=== PATIENT | female | born 1930 | race Caucasian/White ===

== ENCOUNTER 2018-09-11 16:13 | Emergency (ER) | payer BC, OTHER ==
[2018-09-11 16:23] VITALS: TEMP 98.5; BMI 25.7
--- NOTE | 2018-09-11 16:51 | PDOC ---
History of Present Illness - General Chief Complaint: Edema Stated Complaint: FACIAL SWELLING Time Seen by Provider: 09/11/18 16:25 History Source: Patient Exam Limitations: No Limitations - History of Present Illness Initial Comments: 09/11/18 17:02 87y F hx of htn, hl, hypothyroidism, presents with complaint of facial swelling , dry mouth and a brown tongue. PT notes the dry mouth/brown tongue has been going for approx 1 month, today, her sons noticed that her cheeks looked alittle more full than usual. The patient deniesa ny othe rcomplaints including facial pain, tongue swelling, sore throat, headache, dizziness, fever/chills, vision changes, neck pain, changes in her voice, cp, sob, arm/leg swelling, orthopnea, abd pain, n/v, diaphoresis, back pain. No prior history of this inthe past. no new prescription nor otc meds. no diet changes. Past History - Past Medical History Allergies/Adverse Reactions: Allergies Allergy/AdvReac Type Severity Reaction Status Date / Time No Known Allergies Allergy Verified 09/11/18 16:15 Home Medications: Ambulatory Orders Aspirin [Baby Aspirin] PO DAILY 05/05/11 Butalb/Acetaminophen/Caffeine [Fioricet 50-325-40 mg Tablet] PO PRN 05/05/11 Diltiazem [Cardizem] 30 mg PO DAILY 05/05/11 Levothyroxine [Synthroid] 112 mcg PO ONCE 05/05/11 Metoprolol Tartrate [Lopressor] 25 mg PO DAILY 05/05/11 Pravastatin Sodium [Pravachol -] PO DAILY 05/05/11 Alprazolam [Xanax] 0.25 mg PO PRN 05/06/11 Esomeprazole Mag Trihydrate [NexIUM (NF)] 40 mg PO DAILY 05/06/11 Diazepam [Valium -] 2 mg PO DAILY PRN #7 tablet 03/07/13 Anemia: No Asthma: No Cancer: No Cardiac Disorders: No CVA: No COPD: No CHF: No Dementia: No Diabetes: No GI Disorders: No Disorders: No HTN: Yes Hypercholesterolemia: Yes Liver Disease: No Seizures: No Thyroid Disease: Yes (HYPOTHYROID) - Surgical History Abdominal Surgery: No Appendectomy: No Cardiac Surgery: No Cholecystectomy: No Lung Surgery: No Neurologic Surgery: No Orthopedic Surgery: Yes (BILAT ROTATOR CUFF REPAIR) - Suicide/Smoking/Psychosocial Hx Smoking Status: No Smoking History: Never smoked Have you smoked in the past 12 months: No Number of Cigarettes Smoked Daily: 0 Hx Alcohol Use: No Drug/Substance Use Hx: No Substance Use Type: None Hx Substance Use Treatment: No Review of Systems - Review of Systems Able to Perform ROS?: Yes Comments:: 09/11/18 17:08 Constitutional - no reported Fever, Chills, HEENT: +facial sweling, dry mouth, brown tongue no reported vision changes, sore throat Respiratory: no reported cough, sob, hemoptysis Cardiac: no reported chest pain, palpitations, light headedness, leg swelling Abd/GI: no reported abd pain, nausea, vomiting, blood per rectum, melena, diarrhea : no reported dysuria, frequency, discharge Musculskelatal - no reported back pain, joint swelling skin - no reported bruising, erythema, rash neurological: no reported headache, numbness, focal weakness, tingling, ataxia, hematologic: no reported easy bruising, easy bleeding *Physical Exam - Vital Signs Last Vital Signs Temp Pulse Resp BP Pulse Ox 98.5 F 77 18 176/69 H 95 09/11/18 16:14 09/11/18 16:14 09/11/18 16:14 09/11/18 16:14 09/11/18 16:14 - Physical Exam Comments: 09/11/18 17:10 GENERAL: The patient is awake, alert, and fully oriented, Nontoxic - in no acute distress. HEAD: Normocephalic, atraumatic. EYES: extraocular movements intact, sclera anicteric, conjunctiva clear. ENT: Normal voice, brown hairy tongue, no lympahdednopthy, no ttp to salivary glands, NECK: Normal range of motion, supple LUNGS: Breath sounds equal, clear to auscultation bilaterally. No wheezes, no rhonchi, no rales. HEART: Regular rate and rhythm, normal S1 and S2 without murmur, rub or gallop. ABDOMEN: Soft, nontender, No guarding, no rebound. No CVA tenderness EXTREMITIES: Normal range of motion, trace edema NEUROLOGICAL: No facial assymetry, Normal speech, PSYCH: Normal mood, normal affect. SKIN: Warm, Dry, normal turgor, ED Treatment Course - LABORATORY CBC & Chemistry Diagram: 09/11/18 16:56 09/11/18 16:56 Medical Decision Making - Medical Decision Making 09/11/18 17:11 posterior pharynx clear no exudates/erythema no ttp to salivary glands +black hairy tongue = likely due to dry mouth - will encourage pt to use some sucking candies to stimulate salivary flow minmial fullness of cheeks - but no palpable massess or areas of tenderness, no clinica signs of infection/inflammation will ck basic labs if neg will dc with supportive care and PMD/ENT fu 09/11/18 17:59 labs reviewed mild elevation of BUN - cw with mild dehdyration will orally hydrate enocourage sucking on sour candies will have pt fu with ent and pmd retunr precautions were discussed I discussed the physical exam findings, ancillary test results and final diagnoses with the patient. I answered all of the patient's questions. The patient was satisfied with the care received and felt comfortable with the discharge plan and treatment plan. The patient will call their primary care physician within 24 hours to arrange follow-up and will return to the Emergency Department with any new, persistent or worsening symptoms. *DC/Admit/Observation/Transfer Diagnosis at time of Disposition: Dry mouth, Black hairy tongue, Facial swelling - Discharge Dispostion Disposition: HOME Condition at time of disposition: Stable Decision to Admit order: No - Referrals Referrals: Jonathan Baker MD [Staff Physician] - Chandler Jonas MD [Staff Physician] - - Patient Instructions Additional Instructions: Return to the emergency department immediately with ANY new, persistent or worsening symptoms including dififculty braething, changes in your voice, chest pain, shortness of breath or any other concerns. I suspect that your symptoms may be due to you dry mouth, he can try sucking on hard candies to stimulate saliva. Follow-up with ear nose throat doctor if he have persistent symptoms you can call Dr. Jonas if you dont have your own ent. You MUST call and follow up with your doctor in 4-5 days for further evaluation of your symptoms. Results were discussed with you. Please make sure your doctor reviews the results of your emergency evaluation. I Print Language: BELARUSIAN - Post Discharge Activity
[2018-09-11 17:33] LABS: HEMATOCRIT 40.8 % (32.4-45.2); HEMOGLOBIN 13.4 GM/dl (10.7-15.3); MCH 30.7 pg (25.7-33.7); MCHC 32.8 g/dl (32.0-36.0); MEAN CELL VOLUME 93.6 fl (80-96); MEAN PLT VOLUME 8.1 fl (7.5-11.1); PLATELET COUNT 309 K/MM3 (134-434); RBC 4.36 M/mm3 (3.60-5.2); RDW 13.9 % (11.6-15.6); WHITE BLOOD COUNT 11.3 K/mm3 (4.0-10.8)
[2018-09-11 17:44] LABS: ALBUMIN 3.7 g/dl (3.4-5.0); BILIRUBIN,TOTAL 0.3 mg/dl (0.2-1); CALCIUM 9.4 mg/dl (8.5-10); POTASSIUM 3.8 mmol/L (3.5-5.1); TOT PROT 6.4 g/dl (6.4-8.2)
[2018-09-11 18:20] VITALS: BP 171/79; PULSE 85
== END 2018-09-11 18:45 | disposition home or self-care (01) ==
LOC: FER 16:13
DX: R68.2 Dry mouth, unspecified (principal); K14.3 Hypertrophy of tongue papillae; R22.0 Localized swelling, mass and lump, head; I10 Essential (primary) hypertension; E78.5 Hyperlipidemia, unspecified; E03.9 Hypothyroidism, unspecified
CPT/HCPCS: 36415; 80053; 85027; 99282-25

== ENCOUNTER 2018-10-01 07:04 | Day surgery (SDC) | payer BC ==
[2018-10-01] MEDS ORDERED: LIDOCAINE HCL 1%, 10 MG/ML (20ML VIAL) ONE (07:50)
[2018-10-01 08:29] VITALS: BMI 30.2
[2018-10-01] MEDS ORDERED: ACETAMINOPHEN 325 MG TABLET (FP) PO PRN (09:24)
[2018-10-01] MEDS ORDERED: ONDANSETRON 4 MG/2 ML VIAL IVPUSH PRN (09:24)
[2018-10-01] MEDS ORDERED: LACTATED RINGERS SOLUTION 1,000 ML IV SCH (09:30)
[2018-10-01] MEDS ORDERED: SUCCINYLCHOLINE CHLORIDE 200 MG/10 ML VIAL ONE (09:36)
[2018-10-01] MEDS ORDERED: PROPOFOL 20 ML ONE (09:36)
[2018-10-01] MEDS ORDERED: ceFAZolin SODIUM 1 GM VIAL ONE (09:40)
[2018-10-01] MEDS ORDERED: ceFAZolin SODIUM 1 GM VIAL IVPB ONE (09:41)
[2018-10-01] MEDS ORDERED: LIDOCAINE HCL 1%, 10 MG/ML (20ML VIAL) NR ONE (09:44)
[2018-10-01] MEDS ORDERED: LABETALOL HCL 5 MG/1 ML (100MG/20 ML VIAL) ONE (09:46)
--- NOTE | 2018-10-01 10:14 | OP ---
Operative Note - Note: Operative Date: 10/01/18 Pre-Operative Diagnosis: headaches, rule out temporal arteritis Operation: left temporal artery biopsy Post-Operative Diagnosis: Same as Pre-op Surgeon: Gumaro Peñaloza Anesthesia: Fractional Estimated Blood Loss (mls): 20 Operative Report Dictated: Yes
--- NOTE | 2018-10-01 10:15 | HP ---
Admitting History and Physical - Admission Chief Complaint: headaches, with blurry vision for 2-3 weeks Limitations to Obtaining History: No Limitations - Smoking History Smoking history: Never smoked Have you smoked in the past 12 months: No Aproximately how many cigarettes per day: 0 - Alcohol/Substance Use Hx Alcohol Use: No Home Medications - Allergies Allergies/Adverse Reactions: Allergies Allergy/AdvReac Type Severity Reaction Status Date / Time No Known Allergies Allergy Verified 10/01/18 08:23 - Home Medications Home Medications: Ambulatory Orders Butalb/Acetaminophen/Caffeine [Fioricet 50-325-40 mg Tablet] PO PRN 05/05/11 Diltiazem [Cardizem] 30 mg PO DAILY 05/05/11 Levothyroxine [Synthroid] 112 mcg PO ONCE 05/05/11 Metoprolol Tartrate [Lopressor] 25 mg PO DAILY 05/05/11 Pravastatin Sodium [Pravachol -] PO DAILY 05/05/11 Alprazolam [Xanax] 0.25 mg PO PRN 05/06/11 Esomeprazole Mag Trihydrate [NexIUM (NF)] 40 mg PO DAILY 05/06/11 Diazepam [Valium -] 2 mg PO DAILY PRN #7 tablet 03/07/13 Review of Systems - Review of Systems Constitutional: reports: No Symptoms Eyes: reports: Blurred Vision HENT: reports: No Symptoms, Other (headaches) Neck: reports: No Symptoms Cardiovascular: reports: No Symptoms Respiratory: reports: No Symptoms Gastrointestinal: reports: No Symptoms Genitourinary: reports: No Symptoms Musculoskeletal: reports: No Symptoms Integumentary: reports: No Symptoms Neurological: reports: No Symptoms Endocrine: reports: No Symptoms Hematology/Lymphatic: reports: No Symptoms Psychiatric: reports: No Symptoms Physical Examination Vital Signs: Vital Signs Temperature 98.0 F 10/01/18 07:57 Pulse Rate 88 10/01/18 07:57 Respiratory Rate 16 10/01/18 07:57 Blood Pressure 165/85 10/01/18 07:57 O2 Sat by Pulse Oximetry (%) 100 10/01/18 07:57 Constitutional: Yes: Well Nourished, No Distress, Calm Eyes: Yes: WNL, Conjunctiva Clear, EOM Intact HENT: Yes: WNL, Atraumatic, Normocephalic Neck: Yes: WNL, Supple, Trachea Midline Cardiovascular: Yes: WNL, Regular Rate and Rhythm Respiratory: Yes: WNL, Regular, CTA Bilaterally Gastrointestinal: Yes: WNL, Normal Bowel Sounds Musculoskeletal: Yes: WNL Extremities: Yes: WNL Edema: No Peripheral Pulses WNL: Yes Integumentary: Yes: WNL Neurological: Yes: WNL, Alert, Oriented ...Motor Strength: WNL Psychiatric: Yes: WNL Problem List - Problems (1) Head ache Assessment/Plan: rule out temporal arteritis for biopsy of left temporal artery today Code(s): R51 - HEADACHE
--- NOTE | 2018-10-01 10:53 | OP ---
DATE OF OPERATION: 10/01/2018 PREOPERATIVE DIAGNOSIS: Headaches, rule out temporal arteritis. POSTOPERATIVE DIAGNOSIS: Headaches, rule out temporal arteritis. PROCEDURE: Left temporal artery biopsy. SURGEON: Gumaro Underwood DO ANESTHESIA: Fractional. BLOOD LOSS: 20 mL. The patient is an 87-year-old female that has headaches and blurry vision for 2 to 3 weeks. She went to Dr. Spear's office and had blood work done. She was then sent over to our office for a temporal artery biopsy. Patient came in through ambulatory surgery. Patient was consented for the procedure understanding all risks, benefits and alternatives. Was then taken to the operating room. Once in the operating room placed on the operating table in the supine manner and the area of the left zoroastrian region was prepped and draped in a sterile surgical manner. We could feel the pulse of the left temporal artery and that was marked on the skin using a skin marker. We then went ahead and injected 10 mL of lidocaine 1% over the area. We then made a 4-cm incision using a 15 blade. Bovie electrocautery was used to control hemostasis. We were able to get down through all the fascia using Metzenbaum scissors. We then were able to dissect out our temporal artery. Temporal artery was dissected anteriorly and posteriorly. Using a Doppler we were able to hear the Doppler signal of the left temporal artery as well. We then went ahead and dissected anteriorly and posteriorly on the temporal artery. Using 4-0 silk we were able to ligate the artery and then remove it and sent it off to Pathology. Once completed Bovie electrocautery was used to control hemostasis. We irrigated the wound capaciously. Vicryl 3-0 was used and the subcutaneous tissue was approximated in an interrupted manner. Biosyn 4-0 was used and the skin was closed in a subcuticular running fashion. The area was wet and dried. Dermabond and Steri-Strips were placed. Patient tolerated this procedure with no complication. Patient transferred to PACU in stable condition. GUMARO UNDERWOOD DO RIVET CATCHER/[id number]
[2018-10-01 11:07] VITALS: BP 150/66; PULSE 93; TEMP 97.9
--- NOTE | 2018-10-01 12:49 | EKG ---
Test Reason : Blood Pressure : / mmHG Vent. Rate : 088 BPM Atrial Rate : 088 BPM P-R Int : 156 ms QRS Dur : 114 ms QT Int : 368 ms P-R-T Axes : 041 -45 074 degrees QTc Int : 445 ms SINUS RHYTHM WITH PREMATURE SUPRAVENTRICULAR COMPLEXES LEFT ANTERIOR FASCICULAR BLOCK MINIMAL VOLTAGE CRITERIA FOR LVH, MAY BE NORMAL VARIANT ABNORMAL ECG WHEN COMPARED WITH ECG OF 19-OCT-2002 08:20, PREMATURE SUPRAVENTRICULAR COMPLEXES ARE NOW PRESENT LEFT ANTERIOR FASCICULAR BLOCK IS NOW PRESENT Confirmed by SUJEY STEINER MD ([id number]) on 10/01/2018 12:49:21 PM Referred By: Gumaro Peñaloza Confirmed By:SUJEY STEINER MD
--- NOTE | 2018-10-02 18:54 | PATH ---
Surgical Pathology Report Patient Name: TONY FLORES Med. Rec. 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 MULTIPLE LEVELS EXAMINED. Electronically Signed Tamara House M.D. Gross Description Received in formalin labeled "left temporal artery biopsy," is a 0.9 cm in length x 0.1 cm diameter james portion of vasculature, consistent with a temporal artery biopsy. The specimen is trisected and entirely submitted in one cassette. /10/01/2018 saudi/10/01/2018
== END 2018-10-01 11:15 | disposition home or self-care (01) ==
LOC: JASU-SURG 07:04
PROVIDERS: ATTEND Surgery Vascular Surgery
PROC: 03BT0ZX Excision of Left Temporal Artery, Open Approach, Diagnostic (ICD-10-PCS; principal; 2018-10-01 09:00)
DX: R51 Headache (principal); H53.8 Other visual disturbances
CPT/HCPCS: 88305-TC; 93005; 93010

== ENCOUNTER 2018-11-17 09:58 | Inpatient (IN) | payer BC ==
[2018-11-17] MEDS ORDERED: ASPIRIN 81 MG CHEWABLE TABLETS PO ONE (10:21)
[2018-11-17] MEDS ORDERED: FUROSEMIDE 40 MG/4 ML INJECTABLE VIAL IVPUSH ONE (10:22)
[2018-11-17] MEDS ORDERED: dilTIAZem HCL 50 MG/10 ML - 10 ML VIAL IVPUSH ONE ×3 (10:28→12:31)
--- NOTE | 2018-11-17 10:37 | PDOC ---
History of Present Illness - General Chief Complaint: Shortness of Breath Stated Complaint: Shortness of Breath Time Seen by Provider: 11/17/18 10:18 History Source: Patient, Family (son at bedside), Old Records Exam Limitations: No Limitations - History of Present Illness Initial Comments: 11/17/18 10:39 88-year-old female with history of hypertension, hypothyroidism, high cholesterol, questionable atrial fibrillation (per report from son, but no documentation in the EMR) brought in by ambulance for shortness of breath and hypoxia. Patient was in her usual state of health, about 6 weeks ago had temporal artery biopsy for presumed temporal arteritis, at that time was started on steroids and has since been weaned off in the setting of negative pathology results. Over the last 3 weeks however patient has been having progressive symptoms of volume overload with abdominal distention, leg swelling , and over the last 2 weeks progressively increasing dyspnea on exertion with chest pressure on exertion. Symptoms significantly worsened over the last 48 hours including orthopnea and some dyspnea at rest, patient was having trouble getting out of bed so EMS was activated and found her to be hypoxic with O2 sats in the mid 70s off oxygen, improves to mid 90s on 4 L nasal cannula. Patient arrives here feeling better on oxygen, denying any chest pain or pressure, denies any fevers or chills. No history of stents or OH, making normal urine, denies any other complaints. Completed the steroid taper about 9 days ago. Past History - Past Medical History Allergies/Adverse Reactions: Allergies Allergy/AdvReac Type Severity Reaction Status Date / Time No Known Allergies Allergy Verified 10/01/18 08:23 Home Medications: Ambulatory Orders Butalb/Acetaminophen/Caffeine [Fioricet 50-325-40 mg Tablet] 40 mg PO PRN Diltiazem [Cardizem] 60 mg PO BID 05/05/11 Levothyroxine [Synthroid] 125 mcg PO DAILY 05/05/11 Metoprolol Tartrate [Lopressor] 50 mg PO BID 05/05/11 Pravastatin Sodium [Pravachol -] 20 mg PO DAILY 05/05/11 Alprazolam [Xanax] 0.25 mg PO TID 11/17/18 Ranitidine HCl [Zantac] 150 mg PO BID 11/17/18 Omeprazole 20 mg PO DAILY 11/18/18 Anemia: No Asthma: No Cancer: No Cardiac Disorders: No CVA: No COPD: No CHF: No Dementia: No Diabetes: No GI Disorders: No Disorders: No HTN: Yes Hypercholesterolemia: Yes Liver Disease: No Seizures: No Thyroid Disease: Yes (HYPOTHYROID) - Surgical History Abdominal Surgery: No Appendectomy: No Cardiac Surgery: No Cholecystectomy: No Lung Surgery: No Neurologic Surgery: No Orthopedic Surgery: Yes (BILAT ROTATOR CUFF REPAIR) - Suicide/Smoking/Psychosocial Hx Smoking Status: No Smoking History: Never smoked Have you smoked in the past 12 months: No Number of Cigarettes Smoked Daily: 0 Hx Alcohol Use: No Drug/Substance Use Hx: No Substance Use Type: None Hx Substance Use Treatment: No Review of Systems - Review of Systems Constitutional: No: Chills, Fever, Night Sweats Respiratory: Yes: Shortness of Breath, SOB with Exertion. No: Cough Cardiac (ROS): Yes: Edema, Palpitations. No: Syncope ABD/GI: No: Diarrhea, Vomiting : No: Frequency Neurological: Yes: See HPI All Other Systems: Reviewed and Negative *Physical Exam - Vital Signs Last Vital Signs Temp Pulse Resp BP Pulse Ox 97.5 F L 156 H 30 H 115/100 95 11/17/18 10:12 11/17/18 10:12 11/17/18 10:12 11/17/18 10:12 11/17/18 10:12 - Physical Exam Comments: 11/17/18 10:41 Afebrile, O2 sat 95% on 4 L nasal cannula, tachycardic to 150, blood pressure 1: 30 systolic GENERAL: Patient is alert and oriented, seated upright in stretcher, tachypnea with some respiratory distress HEAD: Normal with no signs of trauma. EYES: PERRL, EOMI, sclera anicteric, conjunctiva clear with no pallor. ENT: oropharynx clear without exudates. Moist mucous membranes. NECK: Normal range of motion, supple without masses. LUNGS: bilateral crackles to mid lung hanna, no wheezing. HEART: slightly irregular tachycardia (overall regular with premature beats), S1 and S2 with 2/6 systolic murmur RUSB. ABDOMEN: distended but soft/nontender. BS wnl. No guarding or rebound. No palpable masses. No hepatosplenomegaly. EXTREMITIES: Normal range of motion, 1+ edema. 2+ distal pulses. No cords, erythema, or tenderness. NEUROLOGICAL: Cranial nerves II through XII grossly intact. Normal speech, gait deferred. PSYCH: Normal mood, normal affect. SKIN: Warm, Dry, no rashes or lesions noted. Heart Score/ECG Review #1 ECG reviewed & interpreted by me at: 10:02 General ECG Interpretation: Sinus Rhythm (tachy at 156), Normal Intervals (LVH, QTC 518, LAFB), No acute ischemic changes (poor baseline, downsloping ST segment I/AVL with TWI, <1mm CAROL V1) Compared to previous ECG there are: No significant change (c/w 10/01: sinus, TWI AVL unchanged, lead I TWI is new. LAFB unchanged.) #2 ECG reviewed & interpreted by me at: 12:07 11/17/18 12:37 svt at 160, LAFB, persistent lateral ST depression ED Treatment Course - LABORATORY CBC & Chemistry Diagram: 11/19/18 05:40 11/19/18 05:40 - RADIOLOGY Radiology Studies Ordered: Category Date Time Status CHEST X-RAY PORTABLE* [RAD] Stat Radiology 11/17/18 10:22 Ordered Medical Decision Making - Critical Care Time Total Critical Care Time (minutes): 103 Critical Care Statement: The care of this patient involved high complexity decision making to prevent further life threatening deterioration of the patient 's condition and/or to evaluate & treat vital organ system(s) failure or risk of failure. - Medical Decision Making 11/17/18 10:52 88-year-old female with history of hypertension, high cholesterol, recent workup for temporal arteritis status post 6 week steroid course presents now with progressive volume overload over several weeks with increasing dyspnea on exertion symptoms with pulmonary edema, here with acute hypoxic CHF exacerbation , SVT. Hypoxia improved with oxygen supplementation. Placed immediately on monitor, BiPAP initiated with improved respiratory effort and oxygenation Diltiazem 5 mg IV for SVT of 150, Lasix for volume overload Labs, urinalysis EKG, chest x-ray Discuss with Dr. Baker, will fax recent office results Will need admission and cardiology consultation 11/17/18 12:12 CBC within normal limits Chem notable for creatinine of 1.5, increased from 1 just 2 months ago. Troponin slightly elevated at 0.1, BNP slightly elevated. Chest x-ray with congestive changes consistent with pulmonary edema. Patient received Cardizem 5 mg IV 2 with persistent tachycardia. D-dimer sent for possible PE, cardiology consulted. 11/17/18 12:32 Trial of adenosine for SVT v. determination of underlying rhythm. On monitor with EKG rhythm strip running, adenosine 6mg ivp given with response and apparent flutter waves. Pt did revert back to regular tachycardia at 150-160. Given presumed svt/aflutter with rvr will proceed with cardizem bolus/drip. cardiology consulted, ? amio/dig load. 11/17/18 12:42 Accepted for inpatient tele by Dr. Linares. 11/17/18 13:[address] Nazario, agrees with cardizem gtt, will be seen in ED. 11/17/18 16:[address] Campa. Digoxin 0.25 IV given at 1436, cardizem at 10mg/ h. HR still in 140s, BP improved to 120s, weaning off bipap. Discussed with team, will admit to ICU given persistent tachycardia. Cardiology to consider adding lopressor. ICU resident consulted. 11/17/18 16:[address] pulido, ICU consult resident, who will see the patient. clinically unchanged. *DC/Admit/Observation/Transfer Diagnosis at time of Disposition: Acute pulmonary edema, Acute renal insufficiency, SVT (supraventricular tachycardia) - Discharge Dispostion Condition at time of disposition: Fair Decision to Admit order: Yes - Referrals - Patient Instructions - Post Discharge Activity
[2018-11-17] MEDS ORDERED: ASPIRIN 325 MG TABLET ONE (10:41)
[2018-11-17] MEDS ORDERED: dilTIAZem HCL 50 MG/10 ML - 10 ML VIAL ONE (10:42)
[2018-11-17] MEDS ORDERED: FUROSEMIDE 40 MG/4 ML INJECTABLE VIAL ONE (10:42)
[2018-11-17 10:45] LABS: HEMATOCRIT 42.4 % (32.4-45.2); HEMOGLOBIN 14.1 GM/dL (10.7-15.3); RBC 4.55 M/mm3 (3.60-5.2); WHITE BLOOD COUNT 11.9 K/mm3 (4.0-10.0)
[2018-11-17 10:46] LABS: BASO % 1.2 % (0-2.0); EOS % 0.2 % (0-4.5); LYMPH % 30.7 % (8-40); MCH 30.9 pg (25.7-33.7); MCHC 33.2 g/dl (32.0-36.0); MEAN CELL VOLUME 93.2 fl (80-96); MEAN PLT VOLUME 8.4 fl (7.5-11.1); MONO % 6.3 % (3.8-10.2); NEUT % 61.6 % (42.8-82.8); RDW 15.1 % (11.6-15.6)
[2018-11-17 10:59] LABS: PROTHROMBIN TIME (PATIENT) 11.8 SEC (9.7-13.0)
[2018-11-17 11:01] LABS: ACTIVATED PTT 25.5 SECONDS (25.2-36.5)
[2018-11-17 11:10] LABS: PLATELET COUNT 399 K/MM3 (134-434)
[2018-11-17] MEDS ORDERED: dilTIAZem HCL 125 MG/25 ML - 25 ML VIAL ONE (11:25)
[2018-11-17 11:42] LABS: BILIRUBIN,TOTAL 0.4 mg/dL (0.2-1); BLOOD UREA NITROGEN 33.6 mg/dL (7-18); CALCIUM 9.8 mg/dL (8.5-10.1); CREATININE 1.5 mg/dL (0.55-1.3); N-TERMINAL BNP 5704.4 pg/ml (5-450); POTASSIUM 4.6 mmol/L (3.5-5.1); TOT PROT 7.2 g/dl (6.4-8.2)
[2018-11-17] MEDS ORDERED: ADENOSINE 6 MG/2 ML VIAL IVPUSH ONE ×2 (12:16→12:17)
[2018-11-17] MEDS ORDERED: DILTIAZEM INJECTION 125 MG in SODIUM CHLORIDE 100 ML IVPB SCH (12:45)
[2018-11-17] MEDS ORDERED: DIGOXIN 0.5 MG/2 ML AMPUL IVPUSH ONE (13:51)
--- NOTE | 2018-11-17 14:00 | HP ---
Admitting History and Physical - Primary Care Physician PCP: Dr Fong - Admission Chief Complaint: SOB, hypoxia x1 day History of Present Illness: Pt is an 88 yo F with PMHx of HTN, Hypothyroidism, anxiety, carpal tunnel syndrome, lumbosacral radiculopathy, osteoporosis,proteinuria, chronic renal insuff, overactive bladder,GERD, PACs/PVCs, PAD, Raynaud's, thoracic aneurysm without rupture, thyrotoxicosis s/p PETERSON, varicose veins, artherosclerotic carotid a, MR, HLD,SVT, headaches relieved with fiorecet, presenting from home for shortness of breath started about 4 weeks ago, worsened over past 2 with inability to get out of bed today. Pt had headache over 6 weeks ago, followed Dr Spear and got a temporal artery biopsy 6 weeks ago with negative pathology. Pt had been on high dose steroids for 6 weeks and started gaining weight, with orthopnea, PND, SOB about 3 weeks into the steroid use. Pt was brought in by EMS hypoxic to 70%, and in ED was sating at 90% and tachypneic and found to be tachycardic to 150s. Pt received iv dialtiazem 5mg x5, then adenosine 6mg which slowed the heart rate transiently, and showed variable aflutter. Pt at baseline with incomplete BBB with LVH and LAD. Cardiology was consulted and pt was started on diltiazim drip. Pt currently on bipap and still tachypneic. 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: Other (headache syndrome) Renal/: Yes: Renal Inusuff (GFR>60) Musculoskeletal: Yes: Chronic low back pain Endocrine: Yes: Osteopenia - Smoking History Smoking history: Never smoked Have you smoked in the past 12 months: No Aproximately how many cigarettes per day: 0 - Alcohol/Substance Use Hx Alcohol Use: No Home Medications - Allergies Allergies/Adverse Reactions: Allergies Allergy/AdvReac Type Severity Reaction Status Date / Time No Known Allergies Allergy Verified 10/01/18 08:23 - Home Medications Home Medications: Ambulatory Orders Butalb/Acetaminophen/Caffeine [Fioricet 50-325-40 mg Tablet] 40 mg PO PRN Diltiazem [Cardizem] 60 mg PO BID 05/05/11 Levothyroxine [Synthroid] 125 mcg PO ONCE 05/05/11 Metoprolol Tartrate [Lopressor] 50 mg PO BID 05/05/11 Pravastatin Sodium [Pravachol -] 20 mg PO DAILY 05/05/11 Alprazolam [Xanax] 0.25 mg PO TID 11/17/18 Ranitidine HCl [Zantac] 150 mg PO BID 11/17/18 Review of Systems - Review of Systems Cardiovascular: reports: Edema, Shortness of Breath. denies: Chest Pain Respiratory: reports: Exercise Intolerance, Orthopnea, PND, SOB on Exertion Physical Examination Vital Signs: Vital Signs Temperature 98.2 F 11/17/18 10:22 Pulse Rate 158 H 11/17/18 13:39 Respiratory Rate 26 H 11/17/18 13:39 Blood Pressure 105/91 11/17/18 13:39 O2 Sat by Pulse Oximetry (%) 100 11/17/18 13:39 Constitutional: Yes: Calm, Mild Distress (respiratory distress -tachypneic on bipap) Eyes: Yes: Conjunctiva Clear, EOM Intact, PERRL HENT: Yes: Other (ON BIPAP-32-12/5-100%) Cardiovascular: Yes: Tachycardia, Pulse Irregular, S1, S2 Respiratory: Yes: Poor Air Entry Gastrointestinal: Yes: Normal Bowel Sounds, Abdomen, Obese Extremities: Yes: Cold Edema: Yes Edema: LLE: 1+ (UP TO SHINS), RLE: 1+ Labs: CBC, BMP 11/17/18 10:26 11/17/18 10:56 Imaging - Results Chest X-ray: Report Reviewed, Image Reviewed Assessment/Plan Current Medications Digoxin (Lanoxin Injection -) 0.25 mg IVPUSH Q6H ITZ Stop: 11/18/18 10:00 Last Admin: 11/17/18 20:15 Dose: 0.25 mg Furosemide (Lasix Injection -) 40 mg IVPUSH DAILY [facility] Heparin Sodium (Porcine) (Heparin -) 1,000 unit IVPUSH PRN PRN PRN Reason: Heparin Heparin Sodium (Porcine) (Heparin -) 5,000 unit IVPUSH PRN PRN PRN Reason: Heparin Diltiazem HCl 125 mg/ Sodium (Chloride) 125 mls @ 5 mls/hr IVPB TITR ITZ; Protocol Last Titration: 11/17/18 15:30 Dose: 10 mg/hr, 10 mls/hr Heparin Sodium (Porcine) 25, (000 unit/ Sodium Chloride) 500 mls @ 20 mls/hr IV TITR ITZ; Protocol Last Admin: 11/17/18 16:00 Dose: 500 unit/hr, 10 mls/hr Levothyroxine Sodium (Synthroid -) 112 mcg PO DAILY@0700 [facility] Metoprolol Tartrate (Lopressor Injection -) 5 mg IVPUSH Q4H PRN PRN Reason: TACHYCARDIA Metoprolol Tartrate (Lopressor -) 25 mg PO TID [facility] Last Admin: 11/17/18 22:50 Dose: 25 mg Ambulatory Orders Butalb/Acetaminophen/Caffeine [Fioricet 50-325-40 mg Tablet] 40 mg PO PRN Diltiazem [Cardizem] 60 mg PO BID 05/05/11 Levothyroxine [Synthroid] 125 mcg PO ONCE 05/05/11 Metoprolol Tartrate [Lopressor] 50 mg PO BID 05/05/11 Pravastatin Sodium [Pravachol -] 20 mg PO DAILY 05/05/11 Alprazolam [Xanax] 0.25 mg PO TID 11/17/18 Ranitidine HCl [Zantac] 150 mg PO BID 11/17/18 ASSESSMENT/PLAN: Pt is an 88 yo F with PMHx of HTN, Hypothyroidism, anxiety, carpal tunnel syndrome, lumbosacral radiculopathy, osteoporosis,proteinuria, chronic renal insuff, overactive bladder,GERD, PACs/PVCs, PAD, Raynaud's, thoracic aneurysm without rupture, thyrotoxicosis s/p PETERSON, varicose veins, artherosclerotic carotid a, MR, HLD,SVT, headaches relieved with fiorecet, presenting from home for shortness of breath started about 4 weeks ago, worsened over past 2 with inability to get out of bed today. Aflutter w/RVR Flash Pulm edema HTN, Hypothyroidism, HLD, SVT elevated trops [id number]- anxiety, carpal tunnel syndrome, lumbosacral radiculopathy, osteoporosis, proteinuria, chronic renal insuff, overactive bladder, GERD, PACs/PVCs, PAD, Raynaud's, thoracic aneurysm without rupture, thyrotoxicosis s/p PETERSON, varicose veins, artherosclerotic carotid a, MR, SVT, headaches Plan Iv lasix 40mg given Bipap TSH Lipid profile Trend trops Levothyroxine Dilt iv given, drip Cards on board AC digoxin, per cardio avoid amio (since not on prior AC) ECHO Strict ins and outs Roberts Bipap Visit type - Emergency Visit Emergency Visit: Yes ED Registration Date: 11/17/18 Care time: The patient presented to the Emergency Department on the above date and was hospitalized for further evaluation of their emergent condition. - New Patient This patient is new to me today: Yes Date on this admission: 11/17/18 - Critical Care Critical Care patient: No ATTENDING PHYSICIAN STATEMENT I saw and evaluated the patient. I reviewed the resident's note and discussed the case with the resident. I agree with the resident's findings and plan as documented. SUBJECTIVE: OBJECTIVE: ASSESSMENT AND PLAN:
[2018-11-17] MEDS ORDERED: DIGOXIN 0.5 MG/2 ML AMPUL ONE ×2 (14:27→20:04)
--- NOTE | 2018-11-17 14:41 | EKG ---
Test Reason : Blood Pressure : / mmHG Vent. Rate : 156 BPM Atrial Rate : 156 BPM P-R Int : 088 ms QRS Dur : 116 ms QT Int : 322 ms P-R-T Axes : 092 -39 141 degrees QTc Int : 518 ms POOR DATA QUALITY, INTERPRETATION MAY BE ADVERSELY AFFECTED SINUS TACHYCARDIA WITH SHORT OK LEFT AXIS DEVIATION PULMONARY DISEASE PATTERN LEFT VENTRICULAR HYPERTROPHY WITH QRS WIDENING AND REPOLARIZATION ABNORMALITY ST ELEVATION CONSIDER ANTERIOR INJURY OR ACUTE INFARCT ACUTE IN / STEMI ABNORMAL ECG WHEN COMPARED WITH ECG OF 01-OCT-2018 07:41, SIGNIFICANT CHANGES HAVE OCCURRED Confirmed by Manish Porras MD ([id number]) on 11/17/2018 2:41:14 PM Referred By: Confirmed By:Manish Porras MD
[2018-11-17] MEDS ORDERED: HEPARIN NA (PORCINE) 5,000 UNITS/ML 1ML VIAL IVPUSH PRN ×2 (14:43)
--- NOTE | 2018-11-17 14:43 | CON.CARD ---
Consult Consult Specialty:: Cardiology Referred by:: Dr. Linares Reason for Consultation:: AFLUTTER, CHF - History of Present Illness Chief Complaint: SOB History of Present Illness: 88F HTN, HLD, Raynaud's disease, Anxiety, mild to moderate ascending aortic aneurysm (4.[address] 2014, stable), Hypothyroid, recent negative temporal artery bx on steroids presents to ER with several days SOB, palpitations. Found to be in CHF on CXR and in RAFlutter. Was given 40mg IV Lasix in ER, and several doses of IV Cardizem- not effective. Adenosine was given and revealed Aflutter (as per ER attending, strips not available presently for review). After Receiving Lasix, BP dropped into 80s systolic. She was placed on NIPPV. Alert and oriented in ER. Denies CP but feels SOB. No palps. Denies fever, chills, cough. + B/L LE edema over last few days. 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: Alzheimer's, CVA, Dementia, Migraine, Multiple Sclerosis, Peripheral Neuropathy, Parkinson's, Seizure, Syncope, TIA, Vertigo, Other Cardio/Vascular: Yes: HTN, Hyperlipdemia, Other (ascending aortic aneursym) Pulmonary: No: Asthma, Bronchitis, Cancer, COPD, O2 Dependent, Pneumonia, Previously Intubated, Pulmonary Embolus, Pulmonary Fibrosis, Sleep Apnea, Other Gastrointestinal: No: Ascites, Cancer, Constipation, Crohn's Disease, Diverticulitis, Diverticulosis, Esophageal Varices, Gastritis, GERD, GI Bleed, Hemorrhoids, Hiatal Hernia, Inflamatory Bowel Disease, Irritable Bowel Disease, Pancreatitis, Peptic Ulcer Disease, Ulcerative Colitis, Other Hepatobiliary: Yes: Cirrhosis Renal/: Yes: Renal Failure ...: No Infectious Disease: No: AIDS, C-Diff, Herpes Zoster, HIV, MRSA, STD's, Tuberculosis, VREF, Other Psych: No: Addictions, Anxiety, Bipolar, Depression, Panic, Psychosis, Schizophrenia, Other Musculoskeletal: No: Bursitis, Chronic low back pain, Hemiparesis, Hemiplegia, Osteoarthritis, Paraplegia, Other Rheumatology: Yes: Other (Raynauds) Endocrine: Yes: Hypothyroidism - Alcohol/Substance Use Hx Alcohol Use: No - Smoking History Smoking history: Never smoked Have you smoked in the past 12 months: No Aproximately how many cigarettes per day: 0 - Social History Usual Living Arrangement: With Child ADL: Independent History of Recent Travel: No Home Medications - Allergies Allergies/Adverse Reactions: Allergies Allergy/AdvReac Type Severity Reaction Status Date / Time No Known Allergies Allergy Verified 10/01/18 08:23 - Home Medications Home Medications: Ambulatory Orders Butalb/Acetaminophen/Caffeine [Fioricet 50-325-40 mg Tablet] PO PRN 05/05/11 Diltiazem [Cardizem] 30 mg PO DAILY 05/05/11 Levothyroxine [Synthroid] 112 mcg PO ONCE 05/05/11 Metoprolol Tartrate [Lopressor] 25 mg PO DAILY 05/05/11 Pravastatin Sodium [Pravachol -] PO DAILY 05/05/11 Alprazolam [Xanax] 0.25 mg PO PRN 05/06/11 Esomeprazole Mag Trihydrate [NexIUM (NF)] 40 mg PO DAILY 05/06/11 Diazepam [Valium -] 2 mg PO DAILY PRN #7 tablet 03/07/13 Family Disease History - Family Disease History Family History: Unremarkable (not pertinent to this presentation) Review of Systems - Review of Systems Constitutional: reports: Weakness Cardiovascular: reports: Edema, Palpitations, Shortness of Breath Respiratory: reports: SOB, SOB on Exertion Gastrointestinal: denies: No Symptoms, Abdominal Pain, Bloating, Constipation, Diarrhea, Dysphagia, Indigestion, Melena, Nausea, Rectal Bleeding, Vomiting, Vomiting Blood, Other Genitourinary: denies: No Symptoms, Burning, Discharge, Dysuria, Flank Pain, Frequency, Hematuria, Incontinence, Lesions, Menses, Pain, Testicular Mass, Testicular Pain, Testicular Swelling, Urgency, Vaginal Bleeding, Other Breasts: denies: No Symptoms Reported, See HPI, Breast Implants, Discharge from Nipple, Lumps, Pain, Skin Changes, Other Musculoskeletal: denies: No Symptoms, Back Pain, Crepitus, Decreased ROM, Extremity Pain, Joint Pain, Joint Swelling, Muscle Pain, Muscle Cramps, Muscle Weakness, Other Integumentary: denies: No Symptoms, Blister, Bruising, Change in Color, Eczema, Erythema, Incision, Lesions, Lump, Pallor, Pruritis, Rash, Wound, Other Neurological: denies: No Symptoms, Change in LOC, Change in Speech, Confusion, Dizziness, Headache, Incoordination, Numbness, Parasthesia, Pre-Existing Deficit , Seizure, Syncope, Tremors, Unsteady Gait, Weakness, Other Endocrine: denies: No Symptoms, Excessive Sweating, Flushing, Increased Hunger, Increased Thirst, Intolerance to Cold, Intolerance to Heat, Unexplained Weight Gain, Unexplained Weight Loss, Other Hematology/Lymphatic: denies: No Symptoms, Easily Bruised, Excessive Bleeding, Swollen Glands, Other Psychiatric: denies: No Symptoms, Altered Sleep Pattern, Anxiety, Depression, Hallucinations, Panic, Paranoia, Suicidal, Other - Risk Factors Known Risk Factors: Yes: Hypercholesterolemia, Hypertension Vital Signs: Vital Signs Temperature 98.2 F 11/17/18 10:22 Pulse Rate 157 H 11/17/18 14:38 Respiratory Rate 28 H 11/17/18 14:38 Blood Pressure 136/100 11/17/18 14:38 O2 Sat by Pulse Oximetry (%) 100 11/17/18 14:38 Constitutional: Yes: No Distress Eyes: Yes: Conjunctiva Clear Neck: Yes: Other (+ JVD) Respiratory: Yes: Other (bibasilar rales) Cardiovascular: Yes: Tachycardia, Pulse Irregular JVD: Yes Carotid Bruit: No PMI: Non-Displaced Heart Sounds: Yes: S1, S2 (tachy, irreg) Edema: Yes Edema: LLE: 1+, RLE: 1+ Peripheral Pulses WNL: Yes (cool w/ 1+ DPs) Neurological: Yes: Alert ...Motor Strength: WNL - Other Data Labs, Other Data: CBC, BMP 11/17/18 10:26 11/17/18 10:56 INR, PTT INR 1.00 (0.83-1.09) 11/17/18 10:26 Troponin, BNP 11/17/18 11/17/18 10:56 10:56 Troponin I 0.10 H B-Natriuretic Peptide 5704.4 H Troponin, BNP 11/17/18 11/17/18 10:56 10:56 Troponin I 0.10 H B-Natriuretic Peptide 5704.4 H Laboratory Tests 11/17/18 11/17/18 11/17/18 10:26 10:26 10:56 WBC 11.9 H Hgb 14.1 Plt Count 399 INR 1.00 PTT (Actin FS) 25.5 D-Dimer Sodium Potassium BUN Creatinine Creatine Kinase 36 Troponin I 0.10 H B-Natriuretic Peptide Albumin 11/17/18 11/17/18 10:56 12:52 WBC Hgb Plt Count INR PTT (Actin FS) D-Dimer 1155 H Sodium 142 Potassium 4.6 BUN 33.6 H Creatinine 1.5 H Creatine Kinase Troponin I B-Natriuretic Peptide 5704.4 H Albumin 3.0 L Reviewed. Echo: Pending Ejection Fraction %: LVEF > or = 40 % Imaging - Results Chest X-ray: Image Reviewed EKG: Image Reviewed Assessment/Plan IMP: 1. Atrial flutter with rapid ventricular response, unclear onset 2. Acute on chronic diastolic CHF, in setting of #1 3. History of ascending aortic aneursym, moderate 4. Hypothyroidism 5. Chronic hypertension 6. Elevated D-dimer REC: 1. Rapid atrial flutter: -Now with soft SBP in setting of rapid rates and after IV Lasix -Will begin Dig load, caution with use of Amio as not sure when onset of AFL and small risk of cardioversion (not on AC) -Not responding to Cardizem or beta ivan at this time -Start UFH gtts and plan to convert to oral NOAC in 24 hours if no bleeding issues. -Check TSH 2. CHF: likely acute on chronic diastolic secondary to SUNSHINE -Diurese as hemodymamics allow -Supplimental O2 -Telemetry -Echo -Daily weights and BMP to follow lytes and renal fxn 3. Thoracic aneurysm:previously stable -Moderate, 4.6cm. -Echo -Will plan to initiate B-Ivan once heart rate and SBP stable 4. HTN: now hypotensive in ER -Hold home meds for now 5. Hypothyroidism: -Check TSH 6. Elevated D-dimer: -Nonspecific -Will check Echo -On AC for AFL -Can check LE duplex, low clinical suspicion for PE at this time -Would not subject her to dye load while in acute CHF
[2018-11-17 14:56] LABS: ANISOCYTOSIS 0; MACROCYTOSIS 0; PLATELET ESTIMATE NORMAL
[2018-11-17] MEDS: HEPARIN - 25,000 UNIT in SODIUM CHLORIDE 495 ML IV SCH (16:00)
[2018-11-17] MEDS ORDERED: HEPARIN INFUSION - 25,000 UNITS/500 ML INFUS.BAG IVPB ONE (16:10)
--- NOTE | 2018-11-17 16:32 | ECHO ---
Version: 1 Name: TONY FLORES Exam: Adult Echocardiogram Study Date: 11/17/2018, 2:57 PM Age: 88 Years MMode/2D Measurements & Calculations IVSd: 0.85 cm LVIDs: 3.3 cm LVIDd: 4.3 cm LVPWd: 0.88 cm LVOT diam: 2.04 cm Ao root diam: 3.3 cm LA dimension: 3.5 cm Doppler Measurements & Calculations MV E max jean-pierre: 89.8 cm/sec Med E/e': 29.7 MV A max jean-pierre: 17.3 cm/sec Med Peak E' Jean-Pierre: 3.0 cm/sec MV E/A: 5.2 Lat E/e': 46.1 Lat Peak E' Jean-Pierre: 1.95 cm/sec MR max P.3 mmHg Ao max P.0 mmHg KATIUSKA(I,D): 4.0 cm Ao mean P.51 mmHg LV V1 mean: 72.2 cm/sec Ao V2 max: 86.9 cm/sec LV V1 mean P.39 mmHg AI P1/2t: 679.1 msec PI end-d jean-pierre: 191.4 cm/sec TR max jean-pierre: 285.2 cm/sec TR max P.7 mmHg Procedure The study was technically difficult with many images being suboptimal in quality. Left Ventricle The left ventricle is grossly normal size. Pardoxical septal motion. Left ventricular systolic funct ion is mildly reduced. Ejection Fraction = 45-50%. E/A reversal consistent with but not diagnostic of poor LV compliance. Right Ventricle The right ventricle is grossly normal size. The right ventricular systolic function is grossly nolberto l. Atria Normal left and right atrial size and function. Mitral Valve There is moderate mitral annular calcification. Calcified mitral apparatus. Tricuspid Valve The tricuspid valve is not well visualized, but is grossly normal. Aortic Valve There is moderate aortic valve thickening. No hemodynamically significant valvular aortic stenosis. Pulmonic Valve The pulmonic valve is not well visualized. Great Vessels The aortic root is not well visualized. Pericardium/Pleura There is no pericardial effusion. Summary Statements The study was technically difficult with many images being suboptimal in quality. The left ventricle is grossly normal size. Pardoxical septal motion. Left ventricular systolic funct ion is mildly reduced. The right ventricle is grossly normal size. The right ventricular systolic function is grossly nolberto l. Normal left and right atrial size and function. There is moderate aortic valve thickening. No hemodynamically significant valvular aortic stenosis. There is moderate mitral annular calcification. Calcified mitral apparatus. 11/17/2018, 3:31 MD Jaz Bellamy PM Ordering Physician: Jemal Campa Referring Physician: GIL HANCOCK Performed By: Marilyn Hsieh
[2018-11-17] MEDS ORDERED: METOPROLOL TARTRATE 5 MG/5 ML VIAL IVPUSH PRN (16:35)
--- NOTE | 2018-11-17 18:53 | PN ---
Teaching Attending Note Name of Resident: Anusha Pina ATTENDING PHYSICIAN STATEMENT I saw and evaluated the patient. I reviewed the resident's note and discussed the case with the resident. I agree with the resident's findings and plan as documented with exceptions below. SUBJECTIVE: 88F HTN, HLD, Raynaud's disease, Anxiety, mild to moderate ascending aortic aneurysm (4.[address] 2014, stable), Hypothyroid, recent negative temporal artery bx on steroids admitted with 1 month of progressive dyspnea, orthopnea, PND, leg swelling, worsening of symptoms of last 2 days. Also reports some palpitations. 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 OBJECTIVE: Vital Signs Period Temp Pulse Resp BP Sys/Dorsey Pulse Ox Last 24 Hr 97.5 F-98.4 F 104-161 26-30 105-139/47-100 94-100 Intake & Output 11/14/18 11/15/18 11/16/18 11/17/18 23:59 23:59 23:59 23:59 Weight 155 lb GENERAL: bipap, mild tachypnea, tachycardic, but able to speak in short sentences HEAD: Normal with no signs of trauma. EYES: Pupils equal, round and reactive to light, extraocular movements intact, sclera anicteric, conjunctiva clear. No lid lag. EARS, NOSE, THROAT: limited exam, given on bipap NECK: soft, supple, neck vein distension, limited exam given on bipap LUNGS: decreased air entry all over, unable to appreciate rales or wheezing HEART: S1S2 irregular tachycardia ABDOMEN: Soft, distended, NT, pos bowel sounds MUSCULOSKELETAL: Normal range of motion at all joints. No bony deformities or tenderness. No CVA tenderness. UPPER EXTREMITIES: 2+ pulses, warm, well-perfused. No cyanosis. No clubbing. No peripheral edema. LOWER EXTREMITIES: 2+ pedal pitting edema, pos Dp pulses, varicosities NEUROLOGICAL: AA, responds to name, further exam limited, moves all extremities freely PSYCHIATRIC: Cooperative. Good eye contact. Appropriate mood and affect. SKIN: Warm, dry, normal turgor, no rashes or lesions noted, normal capillary refill. Home Medications Medication Instructions Recorded Butalb/Acetaminophen/Caffeine PO PRN 05/05/11 [Fioricet 50-325-40 mg Tablet] Diltiazem [Cardizem] 30 mg PO DAILY 05/05/11 Levothyroxine [Synthroid] 112 mcg PO ONCE 05/05/11 Metoprolol Tartrate [Lopressor] 25 mg PO DAILY 05/05/11 Pravastatin Sodium [Pravachol -] PO DAILY 05/05/11 Alprazolam [Xanax] 0.25 mg PO PRN 05/06/11 Esomeprazole Mag Trihydrate 40 mg PO DAILY 05/06/11 [NexIUM (NF)] Diazepam [Valium -] 2 mg PO DAILY PRN #7 tablet 03/07/13 Active Medications Digoxin (Lanoxin Injection -) 0.25 mg IVPUSH Q6H [facility] Stop: 11/18/18 10:00 Furosemide (Lasix Injection -) 40 mg IVPUSH DAILY [facility] Heparin Sodium (Porcine) (Heparin -) 1,000 unit IVPUSH PRN PRN PRN Reason: Heparin Heparin Sodium (Porcine) (Heparin -) 5,000 unit IVPUSH PRN PRN PRN Reason: Heparin Diltiazem HCl 125 mg/ Sodium (Chloride) 125 mls @ 5 mls/hr IVPB TITR [facility]; Protocol Last Admin: 11/17/18 13:20 Dose: 5 mg/hr, 5 mls/hr Heparin Sodium (Porcine) 25, (000 unit/ Sodium Chloride) 500 mls @ 20 mls/hr IV TITR [facility]; Protocol Metoprolol Tartrate (Lopressor Injection -) 5 mg IVPUSH Q4H PRN PRN Reason: TACHYCARDIA Metoprolol Tartrate (Lopressor -) 25 mg PO TID [facility] Laboratory Results - last 24 hr 11/17/18 11/17/18 11/17/18 10:26 10:26 10:56 WBC 11.9 H RBC 4.55 Hgb 14.1 Hct 42.4 MCV 93.2 MCH 30.9 MCHC 33.2 RDW 15.1 Plt Count 399 MPV 8.4 Absolute Neuts (auto) 7.4 Neutrophils % 61.6 Neutrophils % (Manual) 58.4 Band Neutrophils % 0.0 Lymphocytes % 30.7 Lymphocytes % (Manual) 34.7 Monocytes % 6.3 Monocytes % (Manual) 5 Eosinophils % 0.2 Eosinophils % (Manual) 1.0 Basophils % 1.2 Basophils % (Manual) 0.0 Myelocytes % (Man) 0 Promyelocytes % (Man) 0 Blast Cells % (Manual) 0 Nucleated RBC % 0 Metamyelocytes 0 Hypochromia 0 Platelet Estimate Normal Polychromasia 0 Poikilocytosis 0 Anisocytosis 0 Microcytosis 0 Macrocytosis 0 PT with INR 11.80 INR 1.00 PTT (Actin FS) 25.5 D-Dimer Sodium Potassium Chloride Carbon Dioxide Anion Gap BUN Creatinine Est GFR (CKD-EPI)AfAm Est GFR (CKD-EPI)NonAf Random Glucose Calcium Magnesium Total Bilirubin AST ALT Alkaline Phosphatase Creatine Kinase 36 Troponin I 0.10 H B-Natriuretic Peptide Total Protein Albumin Blood Type Antibody Screen 11/17/18 11/17/18 11/17/18 10:56 10:56 10:56 WBC RBC Hgb Hct MCV MCH MCHC RDW Plt Count MPV Absolute Neuts (auto) Neutrophils % Neutrophils % (Manual) Band Neutrophils % Lymphocytes % Lymphocytes % (Manual) Monocytes % Monocytes % (Manual) Eosinophils % Eosinophils % (Manual) Basophils % Basophils % (Manual) Myelocytes % (Man) Promyelocytes % (Man) Blast Cells % (Manual) Nucleated RBC % Metamyelocytes Hypochromia Platelet Estimate Polychromasia Poikilocytosis Anisocytosis Microcytosis Macrocytosis PT with INR INR PTT (Actin FS) D-Dimer Sodium 142 Potassium 4.6 Chloride 111 H Carbon Dioxide 26 Anion Gap 5 L BUN 33.6 H Creatinine 1.5 H Est GFR (CKD-EPI)AfAm 36.18 Est GFR (CKD-EPI)NonAf 31.22 Random Glucose 127 H Calcium 9.8 Magnesium 2.3 Total Bilirubin 0.4 AST 21 ALT 27 Alkaline Phosphatase 54 Creatine Kinase Troponin I B-Natriuretic Peptide 5704.4 H Total Protein 7.2 Albumin 3.0 L Blood Type O POSITIVE Antibody Screen Negative 11/17/18 11/17/18 12:52 14:53 WBC RBC Hgb Hct MCV MCH MCHC RDW Plt Count MPV Absolute Neuts (auto) Neutrophils % Neutrophils % (Manual) Band Neutrophils % Lymphocytes % Lymphocytes % (Manual) Monocytes % Monocytes % (Manual) Eosinophils % Eosinophils % (Manual) Basophils % Basophils % (Manual) Myelocytes % (Man) Promyelocytes % (Man) Blast Cells % (Manual) Nucleated RBC % Metamyelocytes Hypochromia Platelet Estimate Polychromasia Poikilocytosis Anisocytosis Microcytosis Macrocytosis PT with INR INR PTT (Actin FS) D-Dimer 1155 H Sodium Potassium Chloride Carbon Dioxide Anion Gap BUN Creatinine Est GFR (CKD-EPI)AfAm Est GFR (CKD-EPI)NonAf Random Glucose Calcium Magnesium Total Bilirubin AST ALT Alkaline Phosphatase Creatine Kinase Troponin I B-Natriuretic Peptide Total Protein Albumin Blood Type O POSITIVE Antibody Screen EKG SVT vs 1:1 Atrial flutter post Adenosine, Atrial flutter with variable block CXR results reviewed ASSESSMENT AND PLAN: 88F HTN, HLD, Raynaud's disease, Anxiety, mild to moderate ascending aortic aneurysm (4.[address] 2014, stable), Hypothyroid, recent negative temporal artery bx on steroids, admitted with New onset CHF/tachycardia -Acute hypoxic respiratory failure -Acute systolic heart failure exacerbation, ?prednisone mediated -Atrial flutter/Fib with RVR -ELIEL , suspect cardiorenal -Elevated troponin, suspect demand type II NSTEMI from above rather than ACS. -HTN -HLD -Raynaud's disease -Anxiety -Mild to moderate Ascending aortic aneurysm (4.[address] in 2014) -Hypothyroidism -Recent negative temporal artery biopsy Plan: Bipap Cardiology input appreciated. S/p cardizem, dig loading. Continue cardizem drip. Metoprolol PO and IV prn. Heparin drip. HR with slow improvement Lasix 40 mg IV daily, strict I/os, daily weights. Cycle troponin. D- dimer noted. Patient with clinical presentation, CXR, 2D echo all strongly suggestive of CHF exacerbation. Will continue to monitor with diuresis/rate control for now. Trend renal function. levothyroxine, TSH, check lipid panel. DVTPPX heparin drip Dispo ICU consulted from ED, given improvement in HR and BP, plan to closely monitor on telemetry with low threshold for ICU transition if new concerns. Discussed with ED, cardiology, ICU Total admit time spent 65 min.
--- NOTE | 2018-11-17 19:04 | CONSULT ---
Consultation: REQUESTING PROVIDER: Dr. Langford CONSULT REQUEST: We have been asked to medically evaluate this patient for pulmonary edema HISTORY OF PRESENT ILLNESS: 88 year old female with a history of hypertension, hypothyroidism, HLD, and possible afib (hx unclear), was brought to the hospital by ambulance for shortness of breath. She reports that for several weeks, she has had progressive shortness of breath and increased swelling. She had temporal artery biopsy 6 weeks ago and has since been on a course of steroids which were weaned down and finally has been off. In the ED, patient was found to have a HR of 155 on the monitor and an EKG suggested SVT. Adenosine was given, which slowed the rate to reveal a possible A flutter picture. Diltiazem was given without success. Cardiology placed patinet on digoxin, which slowed the rate to around 120. Currently, patient is on bipap and reports that she feels less symptomatic than when she first came in, reporting no current shortness of breath, chest pain, nausea, vomiting, diarrhea, fevers, chills. Last known travel was in May (flight abroad). No recent illness, reported changes in medications, or sick contacts. No fevers or chills. REVIEW OF SYSTEMS: CONSTITUTIONAL: Absent: fever, chills, diaphoresis, generalized weakness, malaise, loss of appetite, weight change HEENT: Absent: rhinorrhea, nasal congestion, throat pain, throat swelling, difficulty swallowing, mouth swelling, ear pain, eye pain, visual changes CARDIOVASCULAR: peripheral edema Absent: chest pain, syncope, palpitations, irregular heart rate, lightheadedness , RESPIRATORY: Absent: cough, shortness of breath, dyspnea with exertion, orthopnea, wheezing, stridor, hemoptysis GASTROINTESTINAL: Absent: abdominal pain, abdominal distension, nausea, vomiting, diarrhea, constipation, melena, hematochezia GENITOURINARY: Absent: dysuria, frequency, urgency, hesitancy, hematuria, flank pain, genital pain MUSCULOSKELETAL: Absent: myalgia, arthralgia, joint swelling, back pain, neck pain SKIN: Absent: rash, itching, pallor HEMATOLOGIC/IMMUNOLOGIC: Absent: easy bleeding, easy bruising, lymphadenopathy, frequent infections ENDOCRINE: Absent: unexplained weight gain, unexplained weight loss, heat intolerance, cold intolerance NEUROLOGIC: Absent: headache, focal weakness or paresthesias, dizziness, unsteady gait, seizure, mental status changes, bladder or bowel incontinence PSYCHIATRIC: Absent: anxiety, depression, suicidal or homicidal ideation, hallucinations. PHYSICAL EXAMINATION Vital Signs - 24 hr 11/17/18 11/17/18 11/17/18 10:12 10:22 10:30 Temperature 97.5 F L 98.2 F Pulse Rate 156 H Pulse Rate [ 157 H Left Radial] Respiratory 30 H 26 H Rate Blood Pressure 115/100 Blood Pressure 139/98 [Left Arm] O2 Sat by Pulse 95 94 L 100 Oximetry (%) 11/17/18 11/17/18 11/17/18 11:00 11:08 11:22 Temperature Pulse Rate 152 H Pulse Rate [ 160 H 161 H Left Radial] Respiratory 30 H Rate Blood Pressure Blood Pressure 124/65 132/79 [Left Arm] O2 Sat by Pulse 100 94 L 100 Oximetry (%) 11/17/18 11/17/18 11/17/18 12:00 12:30 12:45 Temperature Pulse Rate Pulse Rate [ 159 H 160 H 159 H Left Radial] Respiratory 29 H 28 H Rate Blood Pressure Blood Pressure 106/47 L 114/96 119/93 [Left Arm] O2 Sat by Pulse 100 100 100 Oximetry (%) 11/17/18 11/17/18 11/17/18 13:00 13:20 13:30 Temperature Pulse Rate 160 H Pulse Rate [ 160 H 158 H Left Radial] Respiratory 26 H 26 H Rate Blood Pressure 105/65 Blood Pressure 123/70 108/76 [Left Arm] O2 Sat by Pulse 100 Oximetry (%) 11/17/18 11/17/18 11/17/18 13:39 14:38 17:25 Temperature 98.4 F Pulse Rate Pulse Rate [ 158 H 157 H 104 H Left Radial] Respiratory 26 H 28 H Rate Blood Pressure Blood Pressure 105/91 136/100 124/65 [Left Arm] O2 Sat by Pulse 100 100 100 Oximetry (%) GENERAL: A&Ox3, no acute distress EYES: PERRLA, EOMI ENT: Dry mucus membranes NECK: Mild JVD noted LUNGS: mild diffuse crackles noted, no wheezes HEART: tachycardic and irregular, no murmurs were auscultated ABDOMEN: Soft, nontender, BS present MUSCULOSKELETAL: No CVA Tenderness EXTREMITIES: 2+ pulses, 1+ peripheral edema bilaterally NEUROLOGICAL: Cranial nerves II-XII intact. No focal deficits. Laboratory Results - last 24 hr 11/17/18 11/17/18 11/17/18 10:26 10:26 10:56 WBC 11.9 H RBC 4.55 Hgb 14.1 Hct 42.4 MCV 93.2 MCH 30.9 MCHC 33.2 RDW 15.1 Plt Count 399 MPV 8.4 Absolute Neuts (auto) 7.4 Neutrophils % 61.6 Neutrophils % (Manual) 58.4 Band Neutrophils % 0.0 Lymphocytes % 30.7 Lymphocytes % (Manual) 34.7 Monocytes % 6.3 Monocytes % (Manual) 5 Eosinophils % 0.2 Eosinophils % (Manual) 1.0 Basophils % 1.2 Basophils % (Manual) 0.0 Myelocytes % (Man) 0 Promyelocytes % (Man) 0 Blast Cells % (Manual) 0 Nucleated RBC % 0 Metamyelocytes 0 Hypochromia 0 Platelet Estimate Normal Polychromasia 0 Poikilocytosis 0 Anisocytosis 0 Microcytosis 0 Macrocytosis 0 PT with INR 11.80 INR 1.00 PTT (Actin FS) 25.5 D-Dimer Sodium Potassium Chloride Carbon Dioxide Anion Gap BUN Creatinine Est GFR (CKD-EPI)AfAm Est GFR (CKD-EPI)NonAf Random Glucose Calcium Magnesium Total Bilirubin AST ALT Alkaline Phosphatase Creatine Kinase 36 Troponin I 0.10 H B-Natriuretic Peptide Total Protein Albumin Blood Type Antibody Screen 11/17/18 11/17/18 11/17/18 10:56 10:56 10:56 WBC RBC Hgb Hct MCV MCH MCHC RDW Plt Count MPV Absolute Neuts (auto) Neutrophils % Neutrophils % (Manual) Band Neutrophils % Lymphocytes % Lymphocytes % (Manual) Monocytes % Monocytes % (Manual) Eosinophils % Eosinophils % (Manual) Basophils % Basophils % (Manual) Myelocytes % (Man) Promyelocytes % (Man) Blast Cells % (Manual) Nucleated RBC % Metamyelocytes Hypochromia Platelet Estimate Polychromasia Poikilocytosis Anisocytosis Microcytosis Macrocytosis PT with INR INR PTT (Actin FS) D-Dimer Sodium 142 Potassium 4.6 Chloride 111 H Carbon Dioxide 26 Anion Gap 5 L BUN 33.6 H Creatinine 1.5 H Est GFR (CKD-EPI)AfAm 36.18 Est GFR (CKD-EPI)NonAf 31.22 Random Glucose 127 H Calcium 9.8 Magnesium 2.3 Total Bilirubin 0.4 AST 21 ALT 27 Alkaline Phosphatase 54 Creatine Kinase Troponin I B-Natriuretic Peptide 5704.4 H Total Protein 7.2 Albumin 3.0 L Blood Type O POSITIVE Antibody Screen Negative 11/17/18 11/17/18 12:52 14:53 WBC RBC Hgb Hct MCV MCH MCHC RDW Plt Count MPV Absolute Neuts (auto) Neutrophils % Neutrophils % (Manual) Band Neutrophils % Lymphocytes % Lymphocytes % (Manual) Monocytes % Monocytes % (Manual) Eosinophils % Eosinophils % (Manual) Basophils % Basophils % (Manual) Myelocytes % (Man) Promyelocytes % (Man) Blast Cells % (Manual) Nucleated RBC % Metamyelocytes Hypochromia Platelet Estimate Polychromasia Poikilocytosis Anisocytosis Microcytosis Macrocytosis PT with INR INR PTT (Actin FS) D-Dimer 1155 H Sodium Potassium Chloride Carbon Dioxide Anion Gap BUN Creatinine Est GFR (CKD-EPI)AfAm Est GFR (CKD-EPI)NonAf Random Glucose Calcium Magnesium Total Bilirubin AST ALT Alkaline Phosphatase Creatine Kinase Troponin I B-Natriuretic Peptide Total Protein Albumin Blood Type O POSITIVE Antibody Screen Active Medications Generic Name Dose Route Start Last Admin Trade Name Freq PRN Reason Stop Dose Admin Digoxin 0.25 mg 11/17/18 20:30 Lanoxin Injection - IVPUSH 11/18/18 10:00 Q6H [facility] Furosemide 40 mg 11/18/18 10:00 Lasix Injection - IVPUSH DAILY [facility] Heparin Sodium (Porcine) 1,000 unit 11/17/18 14:43 Heparin - IVPUSH PRN PRN Heparin Heparin Sodium (Porcine) 5,000 unit 11/17/18 14:43 Heparin - IVPUSH PRN PRN Heparin Diltiazem HCl 125 mg/ Sodium 125 mls @ 5 mls/hr 11/17/18 12:45 11/17/18 13:20 Chloride IVPB 5 mg/hr TITR [facility] 5 mls/hr Administration Protocol 5 MG/HR Heparin Sodium (Porcine) 25, 500 mls @ 20 mls/hr 11/17/18 14:45 11/17/18 16: 00 000 unit/ Sodium Chloride IV 500 unit/hr TITR [facility] 10 mls/hr Administration Protocol 1,000 UNIT/HR Levothyroxine Sodium 112 mcg 11/18/18 07:00 Synthroid - PO DAILY@0700 [facility] Metoprolol Tartrate 5 mg 11/17/18 16:35 Lopressor Injection - IVPUSH Q4H PRN TACHYCARDIA Metoprolol Tartrate 25 mg 11/17/18 22:00 Lopressor - PO TID [facility] CBC, BMP 11/17/18 10:26 11/17/18 10:56 ASSESSMENT/PLAN: 88 year old female with a history of hypertension, hypothyroidism, HLD, and possible afib (hx unclear), was brought to the hospital by ambulance for shortness of breath. She reports that for several weeks, she has had progressive shortness of breath and increased swelling and admitted for atrial fib/flutter and CHF exacerbation Neurological -no focal deficits, no acute complaints Cardiovascular -Afib/flutter, heart rate improved to around 109 while sleeping and jackelin to 115- 120 while awake and talking to me -continue digoxin per cardiology recommendations -monitor on telemetry -patient is hemodynamically stable -metoprolol tartrate 25mg TID -heparin ggt -CHF exacerbation/pulmonary edema - on lasix 40mg daily -troponinemia likely demand, would recommend repeating until plateaus -continue synthroid for hypothyroidism -echo shows EF 45-50% and E/A reversal suggestive of diastolic dysfunction Pulmonary -saturating well on bipap without any respiratory distress -continue on bipap -CXR shows pulmonary congestion -diuresis appears to be helping improve patient symptoms Renal -ELIEL, creatinine 1.5 which was normal on previous admission, likely pre-renal in origin, however would need to diurese -will repeat Cre in AM Dispo -continue to monitor on telemetry, call back if needed Visit type - Emergency Visit Emergency Visit: Yes ED Registration Date: 11/17/18 Care time: The patient presented to the Emergency Department on the above date and was hospitalized for further evaluation of their emergent condition. - New Patient This patient is new to me today: Yes Date on this admission: 11/17/18 - Critical Care Critical Care patient: No ATTENDING PHYSICIAN STATEMENT I saw and evaluated the patient. I reviewed the resident's note and discussed the case with the resident. I agree with the resident's findings and plan as documented. SUBJECTIVE: OBJECTIVE: ASSESSMENT AND PLAN:
[2018-11-17] MEDS: DIGOXIN 0.5 MG/2 ML AMPUL IVPUSH SCH (20:15)
[2018-11-17] MEDS ORDERED: METOPROLOL TARTRATE 25 MG TABLET (FP) ONE (22:47)
[2018-11-17] MEDS: METOPROLOL TARTRATE 25 MG TABLET (FP) PO SCH (22:50)
[2018-11-17 23:38] LABS: BLOOD UREA NITROGEN 33.8 mg/dL (7-18); CALCIUM 9.3 mg/dL (8.5-10.1); CREATININE 1.5 mg/dL (0.55-1.3); MAGNESIUM 2.1 mg/dL (1.8-2.4); POTASSIUM 4.3 mmol/L (3.5-5.1)
[2018-11-18] MEDS: DIGOXIN 0.5 MG/2 ML AMPUL IVPUSH SCH ×2 (02:30→08:07)
[2018-11-18] MEDS ORDERED: DILTIAZEM INJECTION 125 MG in SODIUM CHLORIDE 100 ML IVPB SCH (03:15)
[2018-11-18] MEDS ORDERED: DIGOXIN 0.5 MG/2 ML AMPUL ONE (03:45)
[2018-11-18] MEDS ORDERED: ADENOSINE 6 MG/2 ML VIAL IVPUSH ONE ×2 (04:18→04:49)
[2018-11-18] MEDS ORDERED: AMIODARONE IN DEXTROSE,ISO-OSM 360 MG/200 ML BAG IVPB SCH (04:45)
--- NOTE | 2018-11-18 08:18 | PN ---
Physical Exam: SUBJECTIVE: Patient seen and examined. On bipap. Gesturing about some chest discomfort that she had. Was tachy up to 180s overnight, started on digoxin, amio, cont dilt drip and heparin drip. OBJECTIVE: Vital Signs Period Temp Pulse Resp BP Sys/Dorsey Pulse Ox Last 24 Hr 97.5 F-98.4 F 72-182 22-30 96-139/47-100 92-100 Vital Signs Temp 98.4 F 11/17/18 17:25 Pulse 170 H 11/18/18 08:07 Resp 16 11/18/18 08:00 BP 117/75 11/18/18 08:00 Pulse Ox 94 L 11/18/18 08:41 Intake & Output 11/17/18 11/17/18 11/18/18 11:59 23:59 11:59 Weight 70.307 kg 73.89 kg Other: Voiding Method Indwelling Catheter Height 1.55 m Body Mass Index (BMI) 29.2 Weight Measurement Method Built in [facility] GENERAL: The patient is awake, alert, and fully oriented, on cpap EYES: PERRL, extraocular movements intact ENT: moist mucous membranes. LUNGS: Fine crackles b/l HEART: S1, S2 , ABDOMEN: Soft, nontender, nondistended, normoactive bowel sounds EXTREMITIES: 2+ pulses, warm, well-perfused, mild b/l edema. NEUROLOGICAL: Cranial nerves II through XII grossly intact. Normal speech, gait not observed. CBC, BMP 11/18/18 08:22 11/18/18 08:26 Laboratory Results - last 24 hr 11/17/18 11/17/18 11/17/18 10:26 10:26 10:56 WBC 11.9 H RBC 4.55 Hgb 14.1 Hct 42.4 MCV 93.2 MCH 30.9 MCHC 33.2 RDW 15.1 Plt Count 399 MPV 8.4 Absolute Neuts (auto) 7.4 Neutrophils % 61.6 Neutrophils % (Manual) 58.4 Band Neutrophils % 0.0 Lymphocytes % 30.7 Lymphocytes % (Manual) 34.7 Monocytes % 6.3 Monocytes % (Manual) 5 Eosinophils % 0.2 Eosinophils % (Manual) 1.0 Basophils % 1.2 Basophils % (Manual) 0.0 Myelocytes % (Man) 0 Promyelocytes % (Man) 0 Blast Cells % (Manual) 0 Nucleated RBC % 0 Metamyelocytes 0 Hypochromia 0 Platelet Estimate Normal Polychromasia 0 Poikilocytosis 0 Anisocytosis 0 Microcytosis 0 Macrocytosis 0 PT with INR 11.80 INR 1.00 PTT (Actin FS) 25.5 D-Dimer Sodium Potassium Chloride Carbon Dioxide Anion Gap BUN Creatinine Est GFR (CKD-EPI)AfAm Est GFR (CKD-EPI)NonAf Random Glucose Calcium Magnesium Total Bilirubin AST ALT Alkaline Phosphatase Creatine Kinase 36 Troponin I 0.10 H B-Natriuretic Peptide Total Protein Albumin TSH Blood Type Antibody Screen 11/17/18 11/17/18 11/17/18 10:56 10:56 10:56 WBC RBC Hgb Hct MCV MCH MCHC RDW Plt Count MPV Absolute Neuts (auto) Neutrophils % Neutrophils % (Manual) Band Neutrophils % Lymphocytes % Lymphocytes % (Manual) Monocytes % Monocytes % (Manual) Eosinophils % Eosinophils % (Manual) Basophils % Basophils % (Manual) Myelocytes % (Man) Promyelocytes % (Man) Blast Cells % (Manual) Nucleated RBC % Metamyelocytes Hypochromia Platelet Estimate Polychromasia Poikilocytosis Anisocytosis Microcytosis Macrocytosis PT with INR INR PTT (Actin FS) D-Dimer Sodium 142 Potassium 4.6 Chloride 111 H Carbon Dioxide 26 Anion Gap 5 L BUN 33.6 H Creatinine 1.5 H Est GFR (CKD-EPI)AfAm 36.18 Est GFR (CKD-EPI)NonAf 31.22 Random Glucose 127 H Calcium 9.8 Magnesium 2.3 Total Bilirubin 0.4 AST 21 ALT 27 Alkaline Phosphatase 54 Creatine Kinase Troponin I B-Natriuretic Peptide 5704.4 H Total Protein 7.2 Albumin 3.0 L TSH Blood Type O POSITIVE Antibody Screen Negative 11/17/18 11/17/18 11/17/18 12:52 14:53 23:00 WBC RBC Hgb Hct MCV MCH MCHC RDW Plt Count MPV Absolute Neuts (auto) Neutrophils % Neutrophils % (Manual) Band Neutrophils % Lymphocytes % Lymphocytes % (Manual) Monocytes % Monocytes % (Manual) Eosinophils % Eosinophils % (Manual) Basophils % Basophils % (Manual) Myelocytes % (Man) Promyelocytes % (Man) Blast Cells % (Manual) Nucleated RBC % Metamyelocytes Hypochromia Platelet Estimate Polychromasia Poikilocytosis Anisocytosis Microcytosis Macrocytosis PT with INR INR PTT (Actin FS) D-Dimer 1155 H Sodium 144 Potassium 4.3 Chloride 110 H Carbon Dioxide 24 Anion Gap 9 BUN 33.8 H Creatinine 1.5 H Est GFR (CKD-EPI)AfAm 36.18 Est GFR (CKD-EPI)NonAf 31.22 Random Glucose 108 H Calcium 9.3 Magnesium 2.1 Total Bilirubin AST ALT Alkaline Phosphatase Creatine Kinase Troponin I 0.14 H B-Natriuretic Peptide Total Protein Albumin TSH 4.97 H Blood Type O POSITIVE Antibody Screen Active Medications Generic Name Dose Route Start Last Admin Trade Name Freq PRN Reason Stop Dose Admin Digoxin 0.25 mg 11/17/18 20:30 11/18/18 08:07 Lanoxin Injection - IVPUSH 11/18/18 10:00 0.25 mg Q6H ITZ Administration Furosemide 40 mg 11/18/18 10:00 Lasix Injection - IVPUSH DAILY ITZ Heparin Sodium (Porcine) 1,000 unit 11/17/18 14:43 Heparin - IVPUSH PRN PRN Heparin Heparin Sodium (Porcine) 5,000 unit 11/17/18 14:43 Heparin - IVPUSH PRN PRN Heparin Heparin Sodium (Porcine) 25, 500 mls @ 20 mls/hr 11/17/18 14:45 11/18/18 06: 48 000 unit/ Sodium Chloride IV 1,000 unit/hr TITR ITZ 20 mls/hr Titration Protocol 1,000 UNIT/HR Diltiazem HCl 125 mg/ Sodium 125 mls @ 5 mls/hr 11/18/18 03:15 11/18/18 03:46 Chloride IVPB 5 mg/hr TITR ITZ 5 mls/hr Administration Protocol 5 MG/HR Amiodarone HCl/Dextrose 360 mg in 200 mls @ 16.667 mls/hr 11/18/18 04:45 04:47 Nexterone 360 Mg/200 Ml Bag IVPB 16.667 mls/hr ASDIR ITZ Administration Protocol 0.5 MG/MIN Levothyroxine Sodium 112 mcg 11/18/18 07:00 Synthroid - PO DAILY@0700 ITZ Metoprolol Tartrate 5 mg 11/17/18 16:35 Lopressor Injection - IVPUSH Q4H PRN TACHYCARDIA Metoprolol Tartrate 25 mg 11/17/18 22:00 11/17/18 22:50 Lopressor - PO 25 mg TID [facility] Administration Ambulatory Orders Butalb/Acetaminophen/Caffeine [Fioricet 50-325-40 mg Tablet] 40 mg PO PRN Diltiazem [Cardizem] 60 mg PO BID 05/05/11 Levothyroxine [Synthroid] 125 mcg PO ONCE 05/05/11 Metoprolol Tartrate [Lopressor] 50 mg PO BID 05/05/11 Pravastatin Sodium [Pravachol -] 20 mg PO DAILY 05/05/11 Alprazolam [Xanax] 0.25 mg PO TID 11/17/18 Ranitidine HCl [Zantac] 150 mg PO BID 11/17/18 Omeprazole 20 mg PO DAILY 11/18/18 Current Medications Furosemide (Lasix Injection -) 40 mg IVPUSH DAILY [facility] Last Admin: 11/18/18 09:27 Dose: 40 mg Heparin Sodium (Porcine) (Heparin -) 1,000 unit IVPUSH PRN PRN PRN Reason: Heparin Last Admin: 11/18/18 13:18 Dose: 1,000 unit Heparin Sodium (Porcine) (Heparin -) 5,000 unit IVPUSH PRN PRN PRN Reason: Heparin Heparin Sodium (Porcine) 25, (000 unit/ Sodium Chloride) 500 mls @ 20 mls/hr IV TITR ITZ; Protocol Last Titration: 11/18/18 09:30 Dose: 1,100 unit/hr, 22 mls/hr Diltiazem HCl 125 mg/ Sodium (Chloride) 125 mls @ 5 mls/hr IVPB TITR ITZ; Protocol Last Admin: 11/18/18 03:46 Dose: 5 mg/hr, 5 mls/hr Amiodarone HCl/Dextrose (Nexterone 360 Mg/200 Ml Bag) 360 mg in 200 mls @ 16.667 mls/hr IVPB ASDIR ITZ; Protocol Last Admin: 11/18/18 12:00 Dose: 16.667 mls/hr Levothyroxine Sodium (Synthroid -) 112 mcg PO DAILY@0700 [facility] Last Admin: 11/18/18 09:27 Dose: 112 mcg Metoprolol Tartrate (Lopressor Injection -) 5 mg IVPUSH Q4H PRN PRN Reason: TACHYCARDIA Metoprolol Tartrate (Lopressor -) 25 mg PO TID [facility] Last Admin: 11/18/18 13:08 Dose: 25 mg ASSESSMENT/PLAN: Pt is an 88 yo F with PMHx of HTN, Hypothyroidism, anxiety, carpal tunnel syndrome, lumbosacral radiculopathy, osteoporosis,proteinuria, chronic renal insuff, overactive bladder,GERD, PACs/PVCs, PAD, Raynaud's, thoracic aneurysm without rupture, thyrotoxicosis s/p PETERSON, varicose veins, artherosclerotic carotid a, MR, HLD,SVT, headaches relieved with fiorecet, presenting from home for shortness of breath started about 4 weeks ago, worsened over past 2days with inability to get out of bed day of presentation. carpal tunnel syndrome, lumbosacral radiculopathy, osteoporosis, proteinuria, chronic renal insuff, overactive bladder, GERD, PACs/PVCs, PAD, Raynaud's, thoracic aneurysm without rupture, thyrotoxicosis s/p PETERSON, varicose veins, artherosclerotic carotid a, MR, SVT, Aflutter w/RVR- Pt appears to have a hx of SVT on metoprolol and dilt at home, received adenosine, digoxin, iv dilt, amio, dit drip, per Cards- titrate off dilt drip cont amio, cont heparin drip Flash Pulm edema-cont diuresis HTN- cont metoprolol, dilt drip to be titrated per cards Hypothyroidism- Cont levothyroxine , Hx of thyrotoxicosis, s/p RAIU then levothyroxine, TSH and T4 elevated, Dr Oneil on board, thinks T4 elevated due to calibration, FT4 pending, HLD-Holding pravastatin SVT- mixed rhythms including SVT noted this admission, cont rate control, AC, and amio, pt appears to be back in sinus elevated trops- likely demand in setting of tachycardia [id number], now on heparin per ICU conversation with cards, pt may be transitioned to NOACS as outpt anxiety- xanax, last filled May 2018, for 0.5mg tid - Tachypnea- due to increased work with tachycardia, Bipap as needed headaches- last floricet prescription July 16, not picked up Negative biopsy for temporal arteritis Recent high steroid use Cont ICU mx, may be eligible for tele if stable overnight Visit type - Emergency Visit Emergency Visit: Yes ED Registration Date: 11/17/18 Care time: The patient presented to the Emergency Department on the above date and was hospitalized for further evaluation of their emergent condition. - New Patient This patient is new to me today: No - Critical Care Critical Care patient: No - Discharge Referral Referred to [facility] No ATTENDING PHYSICIAN STATEMENT I saw and evaluated the patient. I reviewed the resident's note and discussed the case with the resident. I agree with the resident's findings and plan as documented. SUBJECTIVE: OBJECTIVE: ASSESSMENT AND PLAN:
[2018-11-18 08:59] LABS: BASO % 0.9 % (0-2.0); EOS % 0.5 % (0-4.5); HEMATOCRIT 38.9 % (32.4-45.2); MCH 31.3 pg (25.7-33.7); MCHC 33.5 g/dl (32.0-36.0); MEAN CELL VOLUME 93.3 fl (80-96); MEAN PLT VOLUME 8.4 fl (7.5-11.1); NEUT % 70.6 % (42.8-82.8); PLATELET COUNT 304 K/MM3 (134-434); RBC 4.17 M/mm3 (3.60-5.2); RDW 14.8 % (11.6-15.6); WHITE BLOOD COUNT 9.6 K/mm3 (4.0-10.0)
[2018-11-18 09:27] LABS: ALBUMIN 2.7 g/dl (3.4-5.0); BILIRUBIN,TOTAL 0.6 mg/dL (0.2-1); BLOOD UREA NITROGEN 35.5 mg/dL (7-18); CALCIUM 9.2 mg/dL (8.5-10.1); CREATININE 1.6 mg/dL (0.55-1.3); MAGNESIUM 2.2 mg/dL (1.8-2.4); TOT PROT 6.4 g/dl (6.4-8.2)
[2018-11-18] MEDS: LEVOTHYROXINE NA 112 MCG TABLET (FP) PO SCH (09:27)
[2018-11-18] MEDS: FUROSEMIDE 40 MG/4 ML INJECTABLE VIAL IVPUSH SCH (09:27)
[2018-11-18] MEDS: METOPROLOL TARTRATE 25 MG TABLET (FP) PO SCH ×3 (09:27→21:07)
--- NOTE | 2018-11-18 10:27 | PN ---
Progress Note (short form) - Note Progress Note: s: no chest pain, palps, dizziness. dyspnea improving, on bipap this morning. Was transferred to ICU for atrial flutter with rate 190s, now in sinus after starting amiodarone gtt, also on dilt gtt and received digoxin load tele: sinus 70s, 6 bt NSVT Current Medications Furosemide (Lasix Injection -) 40 mg IVPUSH DAILY [facility] Last Admin: 11/18/18 09:27 Dose: 40 mg Heparin Sodium (Porcine) (Heparin -) 1,000 unit IVPUSH PRN PRN PRN Reason: Heparin Heparin Sodium (Porcine) (Heparin -) 5,000 unit IVPUSH PRN PRN PRN Reason: Heparin Heparin Sodium (Porcine) 25, (000 unit/ Sodium Chloride) 500 mls @ 20 mls/hr IV TITR ITZ; Protocol Last Titration: 11/18/18 06:48 Dose: 1,000 unit/hr, 20 mls/hr Diltiazem HCl 125 mg/ Sodium (Chloride) 125 mls @ 5 mls/hr IVPB TITR ITZ; Protocol Last Admin: 11/18/18 03:46 Dose: 5 mg/hr, 5 mls/hr Amiodarone HCl/Dextrose (Nexterone 360 Mg/200 Ml Bag) 360 mg in 200 mls @ 16.667 mls/hr IVPB ASDIR ITZ; Protocol Last Admin: 11/18/18 04:47 Dose: 16.667 mls/hr Levothyroxine Sodium (Synthroid -) 112 mcg PO DAILY@0700 [facility] Last Admin: 11/18/18 09:27 Dose: 112 mcg Metoprolol Tartrate (Lopressor Injection -) 5 mg IVPUSH Q4H PRN PRN Reason: TACHYCARDIA Metoprolol Tartrate (Lopressor -) 25 mg PO TID [facility] Last Admin: 11/18/18 09:27 Dose: 25 mg Vital Signs Period Temp Pulse Resp BP Sys/Dorsey Pulse Ox Last 24 Hr 98.3 F-98.4 F 72-182 16-90 96-136/47-100 92-100 Constitutional: Yes: No Distress Eyes: Yes: Conjunctiva Clear Neck: Yes: Other (+ JVD) Respiratory: Yes: Other (bibasilar rales) Cardiovascular: Yes: regular, nl s1, s2 JVD: Yes Carotid Bruit: No PMI: Non-Displaced Heart Sounds: Yes: S1, S2 (tachy, irreg) Edema: Yes Edema: LLE: 1+, RLE: 1+ Peripheral Pulses WNL: Yes (cool w/ 1+ DPs) Neurological: Yes: Alert ...Motor Strength: WNL Reviewed. Echo: Pending Ejection Fraction %: LVEF > or = 40 % Imaging - Results Chest X-ray: Image Reviewed EKG: Image Reviewed Assessment/Plan IMP: 1. Atrial flutter with rapid ventricular response, unclear onset 2. Acute on chronic diastolic CHF, in setting of #1 3. History of ascending aortic aneursym, moderate 4. Hypothyroidism 5. Chronic hypertension 6. Elevated D-dimer REC: 1. Rapid atrial flutter: - now in sinus - received IV digoxin load and currently on amiodarone gtt and diltiazem gtt - cont amiodarone, wean dilt gtt as tolerated - cont metoprolol -cont UFH gtt and plan to convert to oral NOAC if no bleeding issue 2. CHF: likely acute on chronic diastolic secondary to SUNSHINE - continue IV lasix -Supplemental O2 -Telemetry -Echo tds with mildly reduced LV function, grossly nl RV -Daily weights and BMP to follow lytes and renal fxn 3. Thoracic aneurysm:previously stable -Moderate, 4.6cm. - not visualized on echo, technically difficult - outpatient follow up - continue metoprolol 4. HTN: - BP improving, monitor - cont metoprolol 5. Hypothyroidism: - manage per primary 6. Elevated D-dimer: -Nonspecific -On AC for AFL -Can check LE duplex, low clinical suspicion for PE at this time -Would not subject her to dye load while in acute CHF
--- NOTE | 2018-11-18 10:28 | EKG ---
Test Reason : Blood Pressure : / mmHG Vent. Rate : 160 BPM Atrial Rate : 159 BPM P-R Int : 000 ms QRS Dur : 106 ms QT Int : 248 ms P-R-T Axes : 000 -36 146 degrees QTc Int : 404 ms SUPRAVENTRICULAR TACHYCARDIA LEFT AXIS DEVIATION LEFT VENTRICULAR HYPERTROPHY WITH REPOLARIZATION ABNORMALITY ABNORMAL ECG WHEN COMPARED WITH ECG OF 17-NOV-2018 10:02, NONSPECIFIC T WAVE ABNORMALITY NO LONGER EVIDENT IN INFERIOR LEADS Confirmed by ELLA LUCIANO, LOBO ([id number]) on 11/18/2018 10:28:11 AM Referred By: Confirmed By:LOBO JARAMILLO MD
[2018-11-18] MEDS: AMIODARONE IN DEXTROSE,ISO-OSM 360 MG/200 ML BAG IVPB SCH (12:00)
--- NOTE | 2018-11-18 12:17 | PN ---
Teaching Attending Note Name of Resident: Anusha Pina ATTENDING PHYSICIAN STATEMENT I saw and evaluated the patient. I reviewed the resident's note and discussed the case with the resident. I agree with the resident's findings and plan as documented with exceptions below. SUBJECTIVE: Patient seen and examined. on bipap, appropriately responsive, denies complaints currently. OBJECTIVE: Vital Signs Period Temp Pulse Resp BP Sys/Dorsey Pulse Ox Last 24 Hr 98.3 F-98.4 F 72-182 16-90 96-136/53-100 92-100 Intake & Output 11/15/18 11/16/18 11/17/18 11/18/18 23:59 23:59 23:59 23:59 Weight 155 lb 162 lb 14.4 oz General: on bipap, less respiratory distress Neck: soft, supple, limited exam given bipap Chest; decreased air entry all over, limited by habitus Abdomen:Soft, obese, NT Extremities: some improvement in pedal edema Home Medications Medication Instructions Recorded Butalb/Acetaminophen/Caffeine 40 mg PO PRN 05/05/11 [Fioricet 50-325-40 mg Tablet] Diltiazem [Cardizem] 60 mg PO BID 05/05/11 Levothyroxine [Synthroid] 125 mcg PO ONCE 05/05/11 Metoprolol Tartrate [Lopressor] 50 mg PO BID 05/05/11 Pravastatin Sodium [Pravachol -] 20 mg PO DAILY 05/05/11 Alprazolam [Xanax] 0.25 mg PO TID 11/17/18 Ranitidine HCl [Zantac] 150 mg PO BID 11/17/18 Omeprazole 20 mg PO DAILY 11/18/18 Active Medications Furosemide (Lasix Injection -) 40 mg IVPUSH DAILY ITZ Last Admin: 11/18/18 09:27 Dose: 40 mg Heparin Sodium (Porcine) (Heparin -) 1,000 unit IVPUSH PRN PRN PRN Reason: Heparin Heparin Sodium (Porcine) (Heparin -) 5,000 unit IVPUSH PRN PRN PRN Reason: Heparin Heparin Sodium (Porcine) 25, (000 unit/ Sodium Chloride) 500 mls @ 20 mls/hr IV TITR ITZ; Protocol Last Titration: 11/18/18 06:48 Dose: 1,000 unit/hr, 20 mls/hr Diltiazem HCl 125 mg/ Sodium (Chloride) 125 mls @ 5 mls/hr IVPB TITR IZT; Protocol Last Admin: 11/18/18 03:46 Dose: 5 mg/hr, 5 mls/hr Amiodarone HCl/Dextrose (Nexterone 360 Mg/200 Ml Bag) 360 mg in 200 mls @ 16.667 mls/hr IVPB ASDIR ITZ; Protocol Levothyroxine Sodium (Synthroid -) 112 mcg PO DAILY@0700 IT[facility] Last Admin: 11/18/18 09:27 Dose: 112 mcg Metoprolol Tartrate (Lopressor Injection -) 5 mg IVPUSH Q4H PRN PRN Reason: TACHYCARDIA Metoprolol Tartrate (Lopressor -) 25 mg PO TID ITZ Last Admin: 11/18/18 09:27 Dose: 25 mg Laboratory Results - last 24 hr 11/17/18 11/17/18 11/17/18 10:26 12:52 14:53 WBC RBC Hgb Hct MCV MCH MCHC RDW Plt Count MPV Absolute Neuts (auto) Neutrophils % Neutrophils % (Manual) 58.4 Band Neutrophils % 0.0 Lymphocytes % Lymphocytes % (Manual) 34.7 Monocytes % Monocytes % (Manual) 5 Eosinophils % Eosinophils % (Manual) 1.0 Basophils % Basophils % (Manual) 0.0 Myelocytes % (Man) 0 Promyelocytes % (Man) 0 Blast Cells % (Manual) 0 Nucleated RBC % 0 Metamyelocytes 0 Hypochromia 0 Platelet Estimate Normal Polychromasia 0 Poikilocytosis 0 Anisocytosis 0 Microcytosis 0 Macrocytosis 0 PTT (Actin FS) D-Dimer 1155 H Sodium Potassium Chloride Carbon Dioxide Anion Gap BUN Creatinine Est GFR (CKD-EPI)AfAm Est GFR (CKD-EPI)NonAf Random Glucose Calcium Phosphorus Magnesium Total Bilirubin AST ALT Alkaline Phosphatase Troponin I Total Protein Albumin Triglycerides Cholesterol Total LDL Cholesterol HDL Cholesterol TSH Free T4 Blood Type O POSITIVE 11/17/18 11/18/18 11/18/18 23:00 08:22 08:26 WBC 9.6 RBC 4.17 Hgb 13.0 Hct 38.9 MCV 93.3 MCH 31.3 MCHC 33.5 RDW 14.8 Plt Count 304 D MPV 8.4 Absolute Neuts (auto) 6.7 Neutrophils % 70.6 Neutrophils % (Manual) Band Neutrophils % Lymphocytes % 22.0 D Lymphocytes % (Manual) Monocytes % 6.0 Monocytes % (Manual) Eosinophils % 0.5 D Eosinophils % (Manual) Basophils % 0.9 Basophils % (Manual) Myelocytes % (Man) Promyelocytes % (Man) Blast Cells % (Manual) Nucleated RBC % 0 Metamyelocytes Hypochromia Platelet Estimate Polychromasia Poikilocytosis Anisocytosis Microcytosis Macrocytosis PTT (Actin FS) D-Dimer Sodium 144 144 Potassium 4.3 4.0 Chloride 110 H 110 H Carbon Dioxide 24 26 Anion Gap 9 8 BUN 33.8 H 35.5 H Creatinine 1.5 H 1.6 H Est GFR (CKD-EPI)AfAm 36.18 33.47 Est GFR (CKD-EPI)NonAf 31.22 28.88 Random Glucose 108 H 119 H Calcium 9.3 9.2 Phosphorus 4.0 Magnesium 2.1 2.2 Total Bilirubin 0.6 AST 20 ALT 22 Alkaline Phosphatase 50 Troponin I 0.14 H Total Protein 6.4 Albumin 2.7 L Triglycerides 167 H Cholesterol 161 Total LDL Cholesterol 103 H HDL Cholesterol 45 TSH 4.97 H Free T4 1.57 H Blood Type 11/18/18 08:26 WBC RBC Hgb Hct MCV MCH MCHC RDW Plt Count MPV Absolute Neuts (auto) Neutrophils % Neutrophils % (Manual) Band Neutrophils % Lymphocytes % Lymphocytes % (Manual) Monocytes % Monocytes % (Manual) Eosinophils % Eosinophils % (Manual) Basophils % Basophils % (Manual) Myelocytes % (Man) Promyelocytes % (Man) Blast Cells % (Manual) Nucleated RBC % Metamyelocytes Hypochromia Platelet Estimate Polychromasia Poikilocytosis Anisocytosis Microcytosis Macrocytosis PTT (Actin FS) 46.0 H D-Dimer Sodium Potassium Chloride Carbon Dioxide Anion Gap BUN Creatinine Est GFR (CKD-EPI)AfAm Est GFR (CKD-EPI)NonAf Random Glucose Calcium Phosphorus Magnesium Total Bilirubin AST ALT Alkaline Phosphatase Troponin I Total Protein Albumin Triglycerides Cholesterol Total LDL Cholesterol HDL Cholesterol TSH Free T4 Blood Type 2D echo results reviewed ASSESSMENT AND PLAN: 88F HTN, HLD, Raynaud's disease, Anxiety, mild to moderate ascending aortic aneurysm (4.[address] 2014, stable), Hypothyroid, recent negative temporal artery bx on steroids, admitted with New onset CHF/tachycardia -Acute hypoxic respiratory failure -Acute systolic heart failure exacerbation, ?prednisone mediated -Atrial flutter/Fib with RVR -ELIEL , suspect cardiorenal -Elevated troponin, suspect demand type II NSTEMI from above rather than ACS. -HTN -HLD -Raynaud's disease -Anxiety -Mild to moderate Ascending aortic aneurysm (4.[address] in 2014) -Hypothyroidism -Recent negative temporal artery biopsy Plan: Overnight events noted. On amiodarone/diltiazem/heparin drip. Taper diltiazem as tolerated. PO lopressor. s/p Dig loading. ?candidate for [place]/cardioverson, follow up with cardiology. 2D echo noted. Lasix 40 mg IV daily, strict I/os, daily weights. Bipap prn. Tn flat Thyroid panel noted, patient with h/o thyrotoxicosis s/p PETERSON, now on supplementation. Endocrine input given difficult to control tachycardia. Renal function unchanged. DVTPPX heparin drip Dispo pending clinical improvement. Total critical care time spent 36 min.
--- NOTE | 2018-11-18 13:12 | PN ---
Teaching Attending Note Name of Resident: Akhil Coleman ATTENDING PHYSICIAN STATEMENT I saw and evaluated the patient. I reviewed the resident's note and discussed the case with the resident. I agree with the resident's findings and plan as documented. SUBJECTIVE: Pt seen and examined in the ICU. Rates better controlled, now in sinus rhythm with bursts of NSVT. States breathing better. Taken off BiPAP, placed on nasal cannula. OBJECTIVE: Vital Signs Period Temp Pulse Resp BP Sys/Dorsey Pulse Ox Last 24 Hr 98.3 F-98.4 F 72-182 16-28 96-136/53-100 92-100 Intake & Output 11/15/18 11/16/18 11/17/18 11/18/18 23:59 23:59 23:59 23:59 Weight 70.307 kg 73.89 kg Gen: mildly tachypneic at rest Heart: irregular Lung: bibasilar rales Abd: soft, nontender Ext: no edema CBC, BMP 11/18/18 08:22 11/18/18 08:26 Active Medications Furosemide (Lasix Injection -) 40 mg IVPUSH DAILY [facility] Last Admin: 11/18/18 09:27 Dose: 40 mg Heparin Sodium (Porcine) (Heparin -) 1,000 unit IVPUSH PRN PRN PRN Reason: Heparin Heparin Sodium (Porcine) (Heparin -) 5,000 unit IVPUSH PRN PRN PRN Reason: Heparin Heparin Sodium (Porcine) 25, (000 unit/ Sodium Chloride) 500 mls @ 20 mls/hr IV TITR ITZ; Protocol Last Titration: 11/18/18 06:48 Dose: 1,000 unit/hr, 20 mls/hr Diltiazem HCl 125 mg/ Sodium (Chloride) 125 mls @ 5 mls/hr IVPB TITR ITZ; Protocol Last Admin: 11/18/18 03:46 Dose: 5 mg/hr, 5 mls/hr Amiodarone HCl/Dextrose (Nexterone 360 Mg/200 Ml Bag) 360 mg in 200 mls @ 16.667 mls/hr IVPB ASDIR ITZ; Protocol Last Admin: 11/18/18 12:00 Dose: 16.667 mls/hr Levothyroxine Sodium (Synthroid -) 112 mcg PO DAILY@0700 [facility] Last Admin: 11/18/18 09:27 Dose: 112 mcg Metoprolol Tartrate (Lopressor Injection -) 5 mg IVPUSH Q4H PRN PRN Reason: TACHYCARDIA Metoprolol Tartrate (Lopressor -) 25 mg PO TID [facility] Last Admin: 11/18/18 13:08 Dose: 25 mg ASSESSMENT AND PLAN: Atrial Fibrillation with RVR now in sinus Acute Systolic Heart Failure +Troponins likely Demand Ischemia Acute Kidney Injury HTN Hyperlipidemia Anxiety Hypothyroidism - rate/rhythm control per cardiology - continue anticoagulation - O2 to keep SpO2 >90% - trend cardiac enzymes - continue lasix - monitor urine output, creatinine - monitor CXR - can monitor on telemetry
[2018-11-18 13:52] LABS: ANISOCYTOSIS 0; MACROCYTOSIS 0; PLATELET ESTIMATE NORMAL
--- NOTE | 2018-11-18 14:37 | CONSULT ---
Consult Consult Specialty:: Endocrinology Referred by:: Dr Linares Reason for Consultation:: Abnormal TFT - History of Present Illness Chief Complaint: SOB History of Present Illness: This is an 88 yo F with PMHx of HTN, Hypothyroidism s/p PETERSON for hyperthyroidism , anxiety, carpal tunnel syndrome, lumbosacral radiculopathy, osteoporosis, proteinuria, chronic renal insuff, overactive bladder,GERD, PACs/PVCs, PAD, Raynaud's, thoracic aneurysm without rupture, varicose veins, artherosclerotic carotid a, MR, HLD,SVT, headaches relieved with fiorecet, presenting from home for shortness of breath started about 4 weeks ago, worsened over past 2 with inability to get out of bed today. Pt had headache over 6 weeks ago, followed Dr Spear and got a temporal artery biopsy 6 weeks ago with negative pathology. Pt had been on high dose steroids for 6 weeks and started gaining weight, with orthopnea, PND, SOB about 3 weeks into the steroid use. Pt was brought in by EMS hypoxic to 70%, and in ED was sating at 90% and tachypneic and found to be tachycardic to 150s. Pt received iv dialtiazem 5mg x5, then adenosine 6mg which slowed the heart rate transiently, and showed variable aflutter. Pt at baseline with incomplete BBB with LVH and LAD. Cardiology was consulted and pt was started on diltiazim drip. Pt referred for evaluation of abnormal TFT with TSH of 4.97 and FT4 of 1.57> Pt denies any wt loss, heat or cold intolerance prior to the illness. 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.: No Infectious Disease: No: AIDS, C-Diff, Herpes Zoster, HIV, MRSA, STD's, Tuberculosis, VREF, Other Psych: No: Addictions, Anxiety, Bipolar, Depression, Panic, Psychosis, Schizophrenia, Other Musculoskeletal: Yes: Chronic low back pain Rheumatology: Yes: Other (Raynauds) Endocrine: Yes: Hyperthyroidism, Hypothyroidism, Osteopenia - Alcohol/Substance Use Hx Alcohol Use: No - Smoking History Smoking history: Never smoked Have you smoked in the past 12 months: No Aproximately how many cigarettes per day: 0 - Social History Usual Living Arrangement: With Child ADL: Independent History of Recent Travel: No Home Medications - Allergies Allergies/Adverse Reactions: Allergies Allergy/AdvReac Type Severity Reaction Status Date / Time No Known Allergies Allergy Verified 10/01/18 08:23 - Home Medications Home Medications: Ambulatory Orders Butalb/Acetaminophen/Caffeine [Fioricet 50-325-40 mg Tablet] 40 mg PO PRN Diltiazem [Cardizem] 60 mg PO BID 05/05/11 Levothyroxine [Synthroid] 125 mcg PO DAILY 05/05/11 Metoprolol Tartrate [Lopressor] 50 mg PO BID 05/05/11 Pravastatin Sodium [Pravachol -] 20 mg PO DAILY 05/05/11 Alprazolam [Xanax] 0.25 mg PO TID 11/17/18 Ranitidine HCl [Zantac] 150 mg PO BID 11/17/18 Omeprazole 20 mg PO DAILY 11/18/18 Family Disease History - Family Disease History Other Family History: No family h/o thyroid disorder Review of Systems - Review of Systems Constitutional: reports: Malaise Eyes: reports: No Symptoms HENT: reports: No Symptoms Neck: reports: No Symptoms Cardiovascular: reports: Palpitations, Shortness of Breath Respiratory: reports: SOB Gastrointestinal: reports: No Symptoms Genitourinary: reports: No Symptoms Musculoskeletal: reports: No Symptoms Neurological: reports: No Symptoms Endocrine: reports: No Symptoms Physical Exam Vital Signs: Vital Signs Temperature 98.8 F 11/18/18 14:00 Pulse Rate 86 11/18/18 14:00 Respiratory Rate 16 11/18/18 12:00 Blood Pressure 125/61 11/18/18 14:00 O2 Sat by Pulse Oximetry (%) 93 L 11/18/18 11:15 Constitutional: Yes: No Distress, Calm Eyes: Yes: Conjunctiva Clear, EOM Intact HENT: Yes: Atraumatic, Normocephalic Neck: Yes: Supple, Trachea Midline Cardiovascular: Yes: Regular Rate and Rhythm Respiratory: Yes: Regular, CTA Bilaterally Gastrointestinal: Yes: Normal Bowel Sounds, Soft Extremities: Yes: Deformity, Other (Left hand deformity, 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 Will get FT4 by dialysis to confirm Continue LT4 112 for now
--- NOTE | 2018-11-18 17:10 | PN ---
Physical Exam: SUBJECTIVE: Patient seen and examined and examined at the bedside. Patient appeared comfortable and stated that she was comfortably breathing on the BiPAP and had a headache which she states is similar to her previous migraines. Heart rate and blood pressure was controlled. Denied chest pain, palpitations, shortness of breath, abd pain, n/v/c/d, weakness, numbness, tingling, lightheadedness, dizziness. OBJECTIVE: Vital Signs Period Temp Pulse Resp BP Sys/Dorsey Pulse Ox Last 24 Hr 98.3 F-98.8 F 61-182 16-26 96-131/53-75 92-100 GENERAL: The patient is awake, alert, and fully oriented, in no acute distress. HEAD: Normal with no signs of trauma. EYES: PERRL, extraocular movements intact, sclera anicteric, conjunctiva clear. No ptosis. NECK: Trachea midline, full range of motion, supple. LUNGS: Breath sounds equal, diminished with crackles at the bases. HEART: Irregular rate and rhythm, S1, S2 without murmur or rubs. ABDOMEN: Soft, nontender, nondistended, normoactive bowel sounds, no guarding, no rebound, no masses. EXTREMITIES: 1+ pulses, warm, well-perfused, no edema. NEUROLOGICAL: Cranial nerves II through XII grossly intact. Normal speech. PSYCH: Normal mood, normal affect. SKIN: Warm, dry, normal turgor, no rashes or lesions noted Laboratory Results - last 24 hr 11/17/18 11/18/18 11/18/18 23:00 08:22 08:26 WBC 9.6 RBC 4.17 Hgb 13.0 Hct 38.9 MCV 93.3 MCH 31.3 MCHC 33.5 RDW 14.8 Plt Count 304 D MPV 8.4 Absolute Neuts (auto) 6.7 Neutrophils % 70.6 Neutrophils % (Manual) 66.7 Band Neutrophils % 1.0 Lymphocytes % 22.0 D Lymphocytes % (Manual) 22.2 D Monocytes % 6.0 Monocytes % (Manual) 7 Eosinophils % 0.5 D Eosinophils % (Manual) 0.0 D Basophils % 0.9 Basophils % (Manual) 0.0 Myelocytes % (Man) 1 D Promyelocytes % (Man) 0 Blast Cells % (Manual) 0 Nucleated RBC % 0 Metamyelocytes 1 D Hypochromia 0 Platelet Estimate Normal Polychromasia 0 Poikilocytosis 0 Anisocytosis 0 Microcytosis 0 Macrocytosis 0 PTT (Actin FS) Sodium 144 144 Potassium 4.3 4.0 Chloride 110 H 110 H Carbon Dioxide 24 26 Anion Gap 9 8 BUN 33.8 H 35.5 H Creatinine 1.5 H 1.6 H Est GFR (CKD-EPI)AfAm 36.18 33.47 Est GFR (CKD-EPI)NonAf 31.22 28.88 Random Glucose 108 H 119 H Calcium 9.3 9.2 Phosphorus 4.0 Magnesium 2.1 2.2 Total Bilirubin 0.6 AST 20 ALT 22 Alkaline Phosphatase 50 Troponin I 0.14 H Total Protein 6.4 Albumin 2.7 L Triglycerides 167 H Cholesterol 161 Total LDL Cholesterol 103 H HDL Cholesterol 45 TSH 4.97 H Free T4 1.57 H 11/18/18 11/18/18 08:26 12:30 WBC RBC Hgb Hct MCV MCH MCHC RDW Plt Count MPV Absolute Neuts (auto) Neutrophils % Neutrophils % (Manual) Band Neutrophils % Lymphocytes % Lymphocytes % (Manual) Monocytes % Monocytes % (Manual) Eosinophils % Eosinophils % (Manual) Basophils % Basophils % (Manual) Myelocytes % (Man) Promyelocytes % (Man) Blast Cells % (Manual) Nucleated RBC % Metamyelocytes Hypochromia Platelet Estimate Polychromasia Poikilocytosis Anisocytosis Microcytosis Macrocytosis PTT (Actin FS) 46.0 H Sodium Potassium Chloride Carbon Dioxide Anion Gap BUN Creatinine Est GFR (CKD-EPI)AfAm Est GFR (CKD-EPI)NonAf Random Glucose Calcium Phosphorus Magnesium Total Bilirubin AST ALT Alkaline Phosphatase Troponin I 0.14 H Total Protein Albumin Triglycerides Cholesterol Total LDL Cholesterol HDL Cholesterol TSH Free T4 CBC, BMP 11/18/18 08:22 11/18/18 08:26 INR, PTT INR 1.00 (0.83-1.09) 11/17/18 10:26 Active Medications Generic Name Dose Route Start Last Admin Trade Name Freq PRN Reason Stop Dose Admin Furosemide 40 mg 11/18/18 10:00 11/18/18 09:27 Lasix Injection - IVPUSH 40 mg DAILY ITZ Administration Heparin Sodium (Porcine) 1,000 unit 11/17/18 14:43 11/18/18 13:18 Heparin - IVPUSH 1,000 unit PRN PRN Administration Heparin Heparin Sodium (Porcine) 5,000 unit 11/17/18 14:43 Heparin - IVPUSH PRN PRN Heparin Heparin Sodium (Porcine) 25, 500 mls @ 20 mls/hr 11/17/18 14:45 11/18/18 09: 30 000 unit/ Sodium Chloride IV 1,100 unit/hr TITR ITZ 22 mls/hr Titration Protocol 1,000 UNIT/HR Diltiazem HCl 125 mg/ Sodium 125 mls @ 5 mls/hr 11/18/18 03:15 11/18/18 03:46 Chloride IVPB 5 mg/hr TITR ITZ 5 mls/hr Administration Protocol 5 MG/HR Amiodarone HCl/Dextrose 360 mg in 200 mls @ 16.667 mls/hr 11/18/18 12:00 12:00 Nexterone 360 Mg/200 Ml Bag IVPB 16.667 mls/hr ASDIR ITZ Administration Protocol 0.5 MG/MIN Levothyroxine Sodium 112 mcg 11/18/18 07:00 11/18/18 09:27 Synthroid - PO 112 mcg DAILY@0700 ITZ Administration Metoprolol Tartrate 5 mg 11/17/18 16:35 Lopressor Injection - IVPUSH Q4H PRN TACHYCARDIA Metoprolol Tartrate 25 mg 11/17/18 22:00 11/18/18 13:08 Lopressor - PO 25 mg TID ITZ Administration ASSESSMENT/PLAN: Leti Blanchard is a 88 year old female with a PMHx of HTN, Hypothyroidism, anxiety, carpal tunnel syndrome, lumbosacral radiculopathy, osteoporosis, proteinuria, chronic renal insuff, overactive bladder,GERD, PACs/PVCs, PAD, Raynaud's, thoracic aneurysm without rupture, thyrotoxicosis s/p PETERSON, varicose veins, artherosclerotic carotid artery who was admitted to the ICU after consistently having HR in the 180s 2/2 SVTs. Atrial Fibrillation with RVR Acute Systolic Heart Failure Troponemia ELIEL HTN HLD Anxiety Hypothyroidism NEUROLOGIC - stable CARDIOLOGY - adenosine, diltiazem, digoxin given in ED - currently in sinus rhythm with occasional premature supraventricular beats - echo showing EF 45-50% - troponins peaked at 0.14, likely demand ischemia - patient remained in the 180s to 190s - started on diltiazem and amiodarone drip - diltiazem drip discontinued - continue amiodarone 0.5 mg/min - cardiology consulted recs appreciated - on heparin drip, when stable transition to oral NOAC - continue Lopressor 25mg tid - lopressor 5mg q4h prn - Lasix 40mg IV push daily for acute CHF - I+Os, daily weights, monitor urine output - LDL 103, HDL 45 RESPIRATORY - on NC now - BiPAP as needed RENAL - ELIEL likely in the setting of CHF - lasix 40mg IV daily GASTROINTESTINAL - no acute issues GENITOURINARY - barrett in - hematuria noted - UA ordered - continue to monitor, CBC in morning to trend for bleeding - if continued bleeding and lower H/H, consider stopping heparin INFECTIOUS DISEASE - no acute issues ENDOCRINE - synthroid 112mcg daily HEMATOLOGY - stable - continue to monitor counts MUSCULOSKELETAL - no acute issues PSYCHIATRY - no acute issues F/E/N - no standing fluids - continue to monitor electrolytes and replete as needed - low sodium diet LINES - L forearm inserted 11/17 PROPHYLAXIS - on heparin drip CODE - full code DISPO - continue to monitor in ICU CASE DISCUSSED WITH DR. BERMEO AND PRIMARY TEAM KIAH REDDY DO - PGY-1 INTERNAL MEDICINE Visit type - Emergency Visit Emergency Visit: No - New Patient This patient is new to me today: Yes Date on this admission: 11/18/18 - Critical Care Critical Care patient: Yes Total Critical Care Time (in minutes): 35 Critical Care Statement: The care of this patient involved high complexity decision making to prevent further life threatening deterioration of the patient 's condition and/or to evaluate & treat vital organ system(s) failure or risk of failure.
[2018-11-18] MEDS: HEPARIN - 25,000 UNIT in SODIUM CHLORIDE 495 ML IV SCH (21:07)
[2018-11-18 21:25] LABS: EPI CELLS 0.7 /HPF (0-5/HPF); HYALINE CASTS 4 /lpf (0-8); URINE APPEARANCE CLEAR; URINE BACTERIA 22.7 /hpf (NEGATIVE); URINE BILIRUBIN NEGATIVE (NEGATIVE); URINE COLOR ORANGE; URINE GLUCOSE (UA) NEGATIVE (NEGATIVE); URINE KETONE NEGATIVE (NEGATIVE); URINE LEUK ESTERASE TRACE (NEGATIVE); URINE NITRITE NEGATIVE (NEGATIVE); URINE PROTEIN 1+ (NEGATIVE); URINE RBC 557 /hpf (0-4); URINE UROBILINOGEN 0.2 mg/dL (0.2-1.0); URINE WBC 6 /hpf (0-5)
[2018-11-19] MEDS: LEVOTHYROXINE NA 112 MCG TABLET (FP) PO SCH (06:09)
[2018-11-19] MEDS: METOPROLOL TARTRATE 25 MG TABLET (FP) PO SCH ×3 (06:09→21:48)
[2018-11-19 06:30] LABS: HEMATOCRIT 37.2 % (32.4-45.2); HEMOGLOBIN 12.7 GM/dL (10.7-15.3); MCH 31.4 pg (25.7-33.7); MCHC 34.2 g/dl (32.0-36.0); MEAN CELL VOLUME 91.8 fl (80-96); MEAN PLT VOLUME 8.3 fl (7.5-11.1); PLATELET COUNT 267 K/MM3 (134-434); RBC 4.05 M/mm3 (3.60-5.2); RDW 14.7 % (11.6-15.6); WHITE BLOOD COUNT 8.6 K/mm3 (4.0-10.0)
[2018-11-19 06:58] LABS: ALBUMIN 2.4 g/dl (3.4-5.0); BILIRUBIN,TOTAL 0.4 mg/dL (0.2-1); BLOOD UREA NITROGEN 33.8 mg/dL (7-18); CALCIUM 8.3 mg/dL (8.5-10.1); CREATININE 1.5 mg/dL (0.55-1.3); MAGNESIUM 1.8 mg/dL (1.8-2.4); POTASSIUM 3.4 mmol/L (3.5-5.1); TOT PROT 5.9 g/dl (6.4-8.2)
[2018-11-19] MEDS ORDERED: PNEUMOC 13-VAL CONJ-DIP CRM/PF 0.5 ML DISP.SYRIN IM ONE (10:00)
[2018-11-19] MEDS: FUROSEMIDE 40 MG/4 ML INJECTABLE VIAL IVPUSH SCH (10:06)
--- NOTE | 2018-11-19 10:39 | PN ---
Physical Exam: SUBJECTIVE: Patient seen and examined. Heart rate has been controlled on amio drip, tele shows sinus rhythm. Pt off Bipap, no chest pain. OBJECTIVE: Vital Signs Period Temp Pulse Resp BP Sys/Dorsey Pulse Ox Last 24 Hr 97.7 F-98.8 F 61-92 16-25 101-131/61-100 93-99 Vital Signs Temp 98.7 F 11/19/18 10:00 Pulse 82 11/19/18 12:00 Resp 21 H 11/19/18 12:00 BP 120/67 11/19/18 12:00 Pulse Ox 99 11/19/18 09:00 Intake & Output 11/18/18 11/19/18 11/19/18 23:59 11:59 23:59 Intake Total 390 Output Total 450 Balance -60 Weight 72.575 kg Intake: IV 390 Heparin - 25,000 Unit In 192 Normal Saline - 495 ml @ 1,000 UNIT/HR 20 mls/hr IV TITR ITZ Rx#: [id number] saline lock 198 Output: Urine 450 Roberts 450 Other: Voiding Method Indwelling Catheter Indwelling Catheter Weight Measurement Method Built in [facility] GENERAL: The patient is awake, alert, and fully oriented, in no acute distress, on NC. LUNGS: reduced breath sounds with rales lung base. HEART: irreg, S1, S2 ABDOMEN: Soft, nontender, nondistended, normoactive bowel sounds EXTREMITIES: 2+ pulses, warm, well-perfused,mild edema. NEUROLOGICAL: Cranial nerves II through XII grossly intact. No facial droop, no lateralizing signs, able to move all extremities. Normal speech, gait not observed. CBC, BMP 11/19/18 05:40 11/19/18 05:40 Laboratory Results - last 24 hr 11/18/18 11/18/18 11/18/18 08:22 10:23 12:30 WBC RBC Hgb Hct MCV MCH MCHC RDW Plt Count MPV Neutrophils % (Manual) 66.7 Band Neutrophils % 1.0 Lymphocytes % (Manual) 22.2 D Monocytes % (Manual) 7 Eosinophils % (Manual) 0.0 D Basophils % (Manual) 0.0 Myelocytes % (Man) 1 D Promyelocytes % (Man) 0 Blast Cells % (Manual) 0 Nucleated RBC % 0 Metamyelocytes 1 D Hypochromia 0 Platelet Estimate Normal Polychromasia 0 Poikilocytosis 0 Anisocytosis 0 Microcytosis 0 Macrocytosis 0 PTT (Actin FS) Sodium Potassium Chloride Carbon Dioxide Anion Gap BUN Creatinine Est GFR (CKD-EPI)AfAm Est GFR (CKD-EPI)NonAf Random Glucose Calcium Phosphorus Magnesium Total Bilirubin AST ALT Alkaline Phosphatase Troponin I 0.14 H Total Protein Albumin Total T3 64.00 L Urine Color Urine Appearance Urine pH Ur Specific [place] Urine Protein Urine Glucose (UA) Urine Ketones Urine Blood Urine Nitrite Urine Bilirubin Urine Urobilinogen Ur Leukocyte Esterase Urine WBC (Auto) Urine RBC (Auto) Urine Casts (Auto) U Epithel Cells (Auto) Urine Bacteria (Auto) 11/18/18 11/18/18 11/19/18 15:45 17:00 02:25 WBC RBC Hgb Hct MCV MCH MCHC RDW Plt Count MPV Neutrophils % (Manual) Band Neutrophils % Lymphocytes % (Manual) Monocytes % (Manual) Eosinophils % (Manual) Basophils % (Manual) Myelocytes % (Man) Promyelocytes % (Man) Blast Cells % (Manual) Nucleated RBC % Metamyelocytes Hypochromia Platelet Estimate Polychromasia Poikilocytosis Anisocytosis Microcytosis Macrocytosis PTT (Actin FS) 170.6 H 60.4 H Sodium Potassium Chloride Carbon Dioxide Anion Gap BUN Creatinine Est GFR (CKD-EPI)AfAm Est GFR (CKD-EPI)NonAf Random Glucose Calcium Phosphorus Magnesium Total Bilirubin AST ALT Alkaline Phosphatase Troponin I Total Protein Albumin Total T3 Urine Color [place] Urine Appearance Clear Urine pH 5.0 Ur Specific [place] 1.010 Urine Protein 1+ H Urine Glucose (UA) Negative Urine Ketones Negative Urine Blood 3+ H Urine Nitrite Negative Urine Bilirubin Negative Urine Urobilinogen 0.2 Ur Leukocyte Esterase Trace Urine WBC (Auto) 6 Urine RBC (Auto) 557 Urine Casts (Auto) 4 U Epithel Cells (Auto) 0.7 Urine Bacteria (Auto) 22.7 11/19/18 11/19/18 11/19/18 05:40 05:40 05:40 WBC 8.6 RBC 4.05 Hgb 12.7 Hct 37.2 MCV 91.8 MCH 31.4 MCHC 34.2 RDW 14.7 Plt Count 267 MPV 8.3 Neutrophils % (Manual) Band Neutrophils % Lymphocytes % (Manual) Monocytes % (Manual) Eosinophils % (Manual) Basophils % (Manual) Myelocytes % (Man) Promyelocytes % (Man) Blast Cells % (Manual) Nucleated RBC % Metamyelocytes Hypochromia Platelet Estimate Polychromasia Poikilocytosis Anisocytosis Microcytosis Macrocytosis PTT (Actin FS) 65.7 H Sodium 144 Potassium 3.4 L Chloride 108 H Carbon Dioxide 26 Anion Gap 9 BUN 33.8 H Creatinine 1.5 H Est GFR (CKD-EPI)AfAm 36.18 Est GFR (CKD-EPI)NonAf 31.22 Random Glucose 97 Calcium 8.3 L Phosphorus 4.0 Magnesium 1.8 Total Bilirubin 0.4 AST 18 ALT 18 Alkaline Phosphatase 48 Troponin I Total Protein 5.9 L Albumin 2.4 L Total T3 Urine Color Urine Appearance Urine pH Ur Specific [place] Urine Protein Urine Glucose (UA) Urine Ketones Urine Blood Urine Nitrite Urine Bilirubin Urine Urobilinogen Ur Leukocyte Esterase Urine WBC (Auto) Urine RBC (Auto) Urine Casts (Auto) U Epithel Cells (Auto) Urine Bacteria (Auto) 11/19/18 05:40 WBC RBC Hgb Hct MCV MCH MCHC RDW Plt Count MPV Neutrophils % (Manual) Band Neutrophils % Lymphocytes % (Manual) Monocytes % (Manual) Eosinophils % (Manual) Basophils % (Manual) Myelocytes % (Man) Promyelocytes % (Man) Blast Cells % (Manual) Nucleated RBC % Metamyelocytes Hypochromia Platelet Estimate Polychromasia Poikilocytosis Anisocytosis Microcytosis Macrocytosis PTT (Actin FS) Sodium Potassium Chloride Carbon Dioxide Anion Gap BUN Creatinine Est GFR (CKD-EPI)AfAm Est GFR (CKD-EPI)NonAf Random Glucose Calcium Phosphorus Magnesium Total Bilirubin AST ALT Alkaline Phosphatase Troponin I 0.08 H Total Protein Albumin Total T3 Urine Color Urine Appearance Urine pH Ur Specific [place] Urine Protein Urine Glucose (UA) Urine Ketones Urine Blood Urine Nitrite Urine Bilirubin Urine Urobilinogen Ur Leukocyte Esterase Urine WBC (Auto) Urine RBC (Auto) Urine Casts (Auto) U Epithel Cells (Auto) Urine Bacteria (Auto) Active Medications Generic Name Dose Route Start Last Admin Trade Name Freq PRN Reason Stop Dose Admin Furosemide 40 mg 11/18/18 10:00 11/19/18 10:06 Lasix Injection - IVPUSH 40 mg DAILY ITZ Administration Heparin Sodium (Porcine) 1,000 unit 11/17/18 14:43 11/18/18 13:18 Heparin - IVPUSH 1,000 unit PRN PRN Administration Heparin Heparin Sodium (Porcine) 5,000 unit 11/17/18 14:43 Heparin - IVPUSH PRN PRN Heparin Heparin Sodium (Porcine) 25, 500 mls @ 20 mls/hr 11/17/18 14:45 11/18/18 21: 07 000 unit/ Sodium Chloride IV 800 unit/hr TITR ITZ 16 mls/hr Administration Protocol 1,000 UNIT/HR Amiodarone HCl/Dextrose 360 mg in 200 mls @ 16.667 mls/hr 11/18/18 12:00 12:00 Nexterone 360 Mg/200 Ml Bag IVPB 16.667 mls/hr ASDIR ITZ Administration Protocol 0.5 MG/MIN Levothyroxine Sodium 112 mcg 11/18/18 07:00 11/19/18 06:09 Synthroid - PO 112 mcg DAILY@0700 [facility] Administration Metoprolol Tartrate 5 mg 11/17/18 16:35 Lopressor Injection - IVPUSH Q4H PRN TACHYCARDIA Metoprolol Tartrate 25 mg 11/17/18 22:00 11/19/18 06:09 Lopressor - PO 25 mg TID [facility] Administration Ambulatory Orders Butalb/Acetaminophen/Caffeine [Fioricet 50-325-40 mg Tablet] 40 mg PO PRN Diltiazem [Cardizem] 60 mg PO BID 05/05/11 Levothyroxine [Synthroid] 125 mcg PO DAILY 05/05/11 Metoprolol Tartrate [Lopressor] 50 mg PO BID 05/05/11 Pravastatin Sodium [Pravachol -] 20 mg PO DAILY 05/05/11 Alprazolam [Xanax] 0.25 mg PO TID 11/17/18 Ranitidine HCl [Zantac] 150 mg PO BID 11/17/18 Omeprazole 20 mg PO DAILY 11/18/18 Current Medications Furosemide (Lasix Injection -) 40 mg IVPUSH DAILY [facility] Last Admin: 11/19/18 10:06 Dose: 40 mg Heparin Sodium (Porcine) (Heparin -) 1,000 unit IVPUSH PRN PRN PRN Reason: Heparin Last Admin: 11/18/18 13:18 Dose: 1,000 unit Heparin Sodium (Porcine) (Heparin -) 5,000 unit IVPUSH PRN PRN PRN Reason: Heparin Heparin Sodium (Porcine) 25, (000 unit/ Sodium Chloride) 500 mls @ 20 mls/hr IV TITR [facility]; Protocol Last Admin: 11/18/18 21:07 Dose: 800 unit/hr, 16 mls/hr Levothyroxine Sodium (Synthroid -) 112 mcg PO DAILY@0700 [facility] Last Admin: 11/19/18 06:09 Dose: 112 mcg Metoprolol Tartrate (Lopressor Injection -) 5 mg IVPUSH Q4H PRN PRN Reason: TACHYCARDIA Metoprolol Tartrate (Lopressor -) 25 mg PO TID [facility] Last Admin: 11/19/18 14:16 Dose: 25 mg ASSESSMENT/PLAN: Pt is an 88 yo F with PMHx of HTN, Hypothyroidism, anxiety, carpal tunnel syndrome, lumbosacral radiculopathy, osteoporosis,proteinuria, chronic renal insuff, overactive bladder,GERD, PACs/PVCs, PAD, Raynaud's, thoracic aneurysm without rupture, thyrotoxicosis s/p PETERSON, varicose veins, artherosclerotic carotid a, MR, HLD,SVT, headaches relieved with fiorecet, presenting from home for shortness of breath started about 4 weeks ago, worsened over past 2days with inability to get out of bed day of presentation. #Aflutter w/RVR- Pt now in sinsus rhythm Pt appears to have a hx of SVT on metoprolol and dilt at home, received adenosine, digoxin, iv dilt, amio, dit drip, Was titrated off dilt drip and cont amio, Now being transitioned off amio drip to metoprolol -per cards cont heparin drip [id number], now on heparin per ICU conversation with cards, pt may be transitioned to NOACS if no contraindications #Pulm edema Improving cont diuresis #HTN- cont metoprolol, dilt drip titrated per cards Cont lasix #Hypothyroidism- Cont levothyroxine , Hx of thyrotoxicosis, s/p RAIU then levothyroxine, TSH and T4 elevated, Dr Oneil on board, thinks T4 elevated due to calibration, FT4 pending, #HLD- Holding pravastatin #SVT- mixed rhythms including SVT noted this admission, cont rate control, AC, and off amio, pt in sinus #elevated trops- likely demand in setting of tachycardia anxiety- xanax, last filled May 2018, for 0.5mg tid - Tachypnea- due to increased work with tachycardia, Bipap as needed Pt on NC headaches- last floricet prescription July 16, not picked up Negative biopsy for temporal arteritis Recent high steroid use carpal tunnel syndrome, lumbosacral radiculopathy, osteoporosis, proteinuria, chronic renal insuff, overactive bladder, GERD, PACs/PVCs, PAD, Raynaud's, thoracic aneurysm without rupture, thyrotoxicosis s/p PETERSON, varicose veins, artherosclerotic carotid a, MR, SVT, transfer to Tele Visit type - Emergency Visit Emergency Visit: Yes ED Registration Date: 11/17/18 Care time: The patient presented to the Emergency Department on the above date and was hospitalized for further evaluation of their emergent condition. - New Patient This patient is new to me today: No - Critical Care Critical Care patient: Yes Total Critical Care Time (in minutes): 38 Critical Care Statement: The care of this patient involved high complexity decision making to prevent further life threatening deterioration of the patient 's condition and/or to evaluate & treat vital organ system(s) failure or risk of failure. - Discharge Referral Referred to [facility] No ATTENDING PHYSICIAN STATEMENT I saw and evaluated the patient. I reviewed the resident's note and discussed the case with the resident. I agree with the resident's findings and plan as documented. SUBJECTIVE: OBJECTIVE: ASSESSMENT AND PLAN:
--- NOTE | 2018-11-19 11:25 | PN ---
Physical Exam: SUBJECTIVE: Patient seen and examined at bedside. Overnight, the patient's diltiazem was stopped. Additionally, it was noted that her urine was blood tinged. She was found to be supratherapeutic on her heprin, once this was stopped the gross hematuria resolved. The patient has remained stable since being in the ICU and is ready to be transferred to telemetry today. OBJECTIVE: Vital Signs Period Temp Pulse Resp BP Sys/Dorsey Pulse Ox Last 24 Hr 97.7 F-98.8 F 61-92 16-25 101-131/61-100 99-99 GENERAL: The patient is awake, alert, and fully oriented, in no acute distress. HEAD: Normal with no signs of trauma. EYES: PERRL, extraocular movements intact, sclera anicteric, conjunctiva clear. No ptosis. NECK: Trachea midline, full range of motion, supple. LUNGS: Breath sounds equal, and clear to ascultation bilaterally. HEART: Irregular rate and rhythm, S1, S2 without murmur or rubs. ABDOMEN: Soft, nontender, nondistended, normoactive bowel sounds, no guarding, no rebound, no masses. EXTREMITIES: 1+ pulses, warm, well-perfused, no edema. NEUROLOGICAL: Cranial nerves II through XII grossly intact. Normal speech. PSYCH: Normal mood, normal affect. SKIN: Warm, dry, normal turgor, no rashes or lesions noted Laboratory Results - last 24 hr 11/18/18 11/18/18 11/18/18 08:22 10:23 12:30 WBC RBC Hgb Hct MCV MCH MCHC RDW Plt Count MPV Neutrophils % (Manual) 66.7 Band Neutrophils % 1.0 Lymphocytes % (Manual) 22.2 D Monocytes % (Manual) 7 Eosinophils % (Manual) 0.0 D Basophils % (Manual) 0.0 Myelocytes % (Man) 1 D Promyelocytes % (Man) 0 Blast Cells % (Manual) 0 Nucleated RBC % 0 Metamyelocytes 1 D Hypochromia 0 Platelet Estimate Normal Polychromasia 0 Poikilocytosis 0 Anisocytosis 0 Microcytosis 0 Macrocytosis 0 PTT (Actin FS) Sodium Potassium Chloride Carbon Dioxide Anion Gap BUN Creatinine Est GFR (CKD-EPI)AfAm Est GFR (CKD-EPI)NonAf Random Glucose Calcium Phosphorus Magnesium Total Bilirubin AST ALT Alkaline Phosphatase Troponin I 0.14 H Total Protein Albumin Total T3 64.00 L Urine Color Urine Appearance Urine pH Ur Specific [place] Urine Protein Urine Glucose (UA) Urine Ketones Urine Blood Urine Nitrite Urine Bilirubin Urine Urobilinogen Ur Leukocyte Esterase Urine WBC (Auto) Urine RBC (Auto) Urine Casts (Auto) U Epithel Cells (Auto) Urine Bacteria (Auto) 11/18/18 11/18/18 11/19/18 15:45 17:00 02:25 WBC RBC Hgb Hct MCV MCH MCHC RDW Plt Count MPV Neutrophils % (Manual) Band Neutrophils % Lymphocytes % (Manual) Monocytes % (Manual) Eosinophils % (Manual) Basophils % (Manual) Myelocytes % (Man) Promyelocytes % (Man) Blast Cells % (Manual) Nucleated RBC % Metamyelocytes Hypochromia Platelet Estimate Polychromasia Poikilocytosis Anisocytosis Microcytosis Macrocytosis PTT (Actin FS) 170.6 H 60.4 H Sodium Potassium Chloride Carbon Dioxide Anion Gap BUN Creatinine Est GFR (CKD-EPI)AfAm Est GFR (CKD-EPI)NonAf Random Glucose Calcium Phosphorus Magnesium Total Bilirubin AST ALT Alkaline Phosphatase Troponin I Total Protein Albumin Total T3 Urine Color [place] Urine Appearance Clear Urine pH 5.0 Ur Specific [place] 1.010 Urine Protein 1+ H Urine Glucose (UA) Negative Urine Ketones Negative Urine Blood 3+ H Urine Nitrite Negative Urine Bilirubin Negative Urine Urobilinogen 0.2 Ur Leukocyte Esterase Trace Urine WBC (Auto) 6 Urine RBC (Auto) 557 Urine Casts (Auto) 4 U Epithel Cells (Auto) 0.7 Urine Bacteria (Auto) 22.7 11/19/18 11/19/18 11/19/18 05:40 05:40 05:40 WBC 8.6 RBC 4.05 Hgb 12.7 Hct 37.2 MCV 91.8 MCH 31.4 MCHC 34.2 RDW 14.7 Plt Count 267 MPV 8.3 Neutrophils % (Manual) Band Neutrophils % Lymphocytes % (Manual) Monocytes % (Manual) Eosinophils % (Manual) Basophils % (Manual) Myelocytes % (Man) Promyelocytes % (Man) Blast Cells % (Manual) Nucleated RBC % Metamyelocytes Hypochromia Platelet Estimate Polychromasia Poikilocytosis Anisocytosis Microcytosis Macrocytosis PTT (Actin FS) 65.7 H Sodium 144 Potassium 3.4 L Chloride 108 H Carbon Dioxide 26 Anion Gap 9 BUN 33.8 H Creatinine 1.5 H Est GFR (CKD-EPI)AfAm 36.18 Est GFR (CKD-EPI)NonAf 31.22 Random Glucose 97 Calcium 8.3 L Phosphorus 4.0 Magnesium 1.8 Total Bilirubin 0.4 AST 18 ALT 18 Alkaline Phosphatase 48 Troponin I Total Protein 5.9 L Albumin 2.4 L Total T3 Urine Color Urine Appearance Urine pH Ur Specific [place] Urine Protein Urine Glucose (UA) Urine Ketones Urine Blood Urine Nitrite Urine Bilirubin Urine Urobilinogen Ur Leukocyte Esterase Urine WBC (Auto) Urine RBC (Auto) Urine Casts (Auto) U Epithel Cells (Auto) Urine Bacteria (Auto) 11/19/18 05:40 WBC RBC Hgb Hct MCV MCH MCHC RDW Plt Count MPV Neutrophils % (Manual) Band Neutrophils % Lymphocytes % (Manual) Monocytes % (Manual) Eosinophils % (Manual) Basophils % (Manual) Myelocytes % (Man) Promyelocytes % (Man) Blast Cells % (Manual) Nucleated RBC % Metamyelocytes Hypochromia Platelet Estimate Polychromasia Poikilocytosis Anisocytosis Microcytosis Macrocytosis PTT (Actin FS) Sodium Potassium Chloride Carbon Dioxide Anion Gap BUN Creatinine Est GFR (CKD-EPI)AfAm Est GFR (CKD-EPI)NonAf Random Glucose Calcium Phosphorus Magnesium Total Bilirubin AST ALT Alkaline Phosphatase Troponin I 0.08 H Total Protein Albumin Total T3 Urine Color Urine Appearance Urine pH Ur Specific [place] Urine Protein Urine Glucose (UA) Urine Ketones Urine Blood Urine Nitrite Urine Bilirubin Urine Urobilinogen Ur Leukocyte Esterase Urine WBC (Auto) Urine RBC (Auto) Urine Casts (Auto) U Epithel Cells (Auto) Urine Bacteria (Auto) Active Medications Generic Name Dose Route Start Last Admin Trade Name Freq PRN Reason Stop Dose Admin Furosemide 40 mg 11/18/18 10:00 11/19/18 10:06 Lasix Injection - IVPUSH 40 mg DAILY ITZ Administration Heparin Sodium (Porcine) 1,000 unit 11/17/18 14:43 11/18/18 13:18 Heparin - IVPUSH 1,000 unit PRN PRN Administration Heparin Heparin Sodium (Porcine) 5,000 unit 11/17/18 14:43 Heparin - IVPUSH PRN PRN Heparin Heparin Sodium (Porcine) 25, 500 mls @ 20 mls/hr 11/17/18 14:45 11/18/18 21: 07 000 unit/ Sodium Chloride IV 800 unit/hr TITR ITZ 16 mls/hr Administration Protocol 1,000 UNIT/HR Amiodarone HCl/Dextrose 360 mg in 200 mls @ 16.667 mls/hr 11/18/18 12:00 12:00 Nexterone 360 Mg/200 Ml Bag IVPB 16.667 mls/hr ASDIR ITZ Administration Protocol 0.5 MG/MIN Potassium Chloride 10 meq in 100 mls @ 100 mls/hr 11/19/18 11:30 Potassium Chloride 10 Meq Premix Ivpb - IVPB 11/19/18 12:29 Q60M ITZ Levothyroxine Sodium 112 mcg 11/18/18 07:00 11/19/18 06:09 Synthroid - PO 112 mcg DAILY@0700 ITZ Administration Metoprolol Tartrate 5 mg 11/17/18 16:35 Lopressor Injection - IVPUSH Q4H PRN TACHYCARDIA Metoprolol Tartrate 25 mg 11/17/18 22:00 11/19/18 06:09 Lopressor - PO 25 mg TID ITZ Administration ASSESSMENT/PLAN: Leti Blanchard is a 88 year old female with a PMHx of HTN, Hypothyroidism, anxiety, carpal tunnel syndrome, lumbosacral radiculopathy, osteoporosis, proteinuria, chronic renal insuff, overactive bladder,GERD, PACs/PVCs, PAD, Raynaud's, thoracic aneurysm without rupture, thyrotoxicosis s/p PETERSON, varicose veins, artherosclerotic carotid artery who was admitted to the ICU after consistently having HR in the 180s 2/2 SVTs. NEUROLOGIC - stable CARDIOLOGY - currently in sinus rhythm with occasional premature supraventricular beats - echo showing EF 45-50% - troponins peaked at 0.14, likely demand ischemia, trending down now 0.08 - HR stabilized, now 77 - D/c'd diltiazem - D/C amiodarone drip upon transfer - cardiology consulted recs appreciated - on heparin drip, when stable transition to oral NOAC> eliquis - continue Lopressor 25mg tid - lopressor 5mg q4h prn - Lasix 40mg IV push daily for acute CHF - I+Os, daily weights, monitor urine output RESPIRATORY - on NC now - BiPAP as needed RENAL - ELIEL likely in the setting of CHF - lasix 40mg IV daily GASTROINTESTINAL - no acute issues GENITOURINARY - Remove barrett - hematuria noted, likely due to being supratherapeutic on heparin. - gross hematuria resolved today, will transition patient to NOAC INFECTIOUS DISEASE - no acute issues ENDOCRINE - synthroid 112mcg daily HEMATOLOGY - stable - continue to monitor counts MUSCULOSKELETAL - no acute issues PSYCHIATRY - no acute issues F/E/N - no standing fluids - continue to monitor electrolytes and replete as needed - low sodium diet LINES - L forearm inserted 11/17 PROPHYLAXIS - on heparin drip CODE - full code DISPO -stable for transfer to telemetry floor Visit type - Emergency Visit Emergency Visit: Yes ED Registration Date: 11/17/18 Care time: The patient presented to the Emergency Department on the above date and was hospitalized for further evaluation of their emergent condition. - New Patient This patient is new to me today: Yes Date on this admission: 11/19/18 - Critical Care Critical Care patient: Yes Total Critical Care Time (in minutes): 40 Critical Care Statement: The care of this patient involved high complexity decision making to prevent further life threatening deterioration of the patient 's condition and/or to evaluate & treat vital organ system(s) failure or risk of failure. ATTENDING PHYSICIAN STATEMENT I saw and evaluated the patient. I reviewed the resident's note and discussed the case with the resident. I agree with the resident's findings and plan as documented. SUBJECTIVE: OBJECTIVE: ASSESSMENT AND PLAN:
[2018-11-19] MEDS ORDERED: KCL 10 MEQ IVPB 10 MEQ/100 ML INFUS.BAG IVPB SCH (11:30)
[2018-11-19] MEDS ORDERED: POTASSIUM CHLORIDE TABS 20 MEQ TABLET.ER (FP) PO ONE (11:51)
--- NOTE | 2018-11-19 12:25 | PN ---
Progress Note (short form) - Note Progress Note: s: no chest pain, palps, dizziness, sob. remains in sr tele: sinus Current Medications Generic Name Dose Route Start Last Admin Trade Name Rajani PRN Reason Stop Dose Admin Furosemide 40 mg 11/18/18 10:00 11/19/18 10:06 Lasix Injection - IVPUSH 40 mg DAILY ITZ Administration Heparin Sodium (Porcine) 1,000 unit 11/17/18 14:43 11/18/18 13:18 Heparin - IVPUSH 1,000 unit PRN PRN Administration Heparin Heparin Sodium (Porcine) 5,000 unit 11/17/18 14:43 Heparin - IVPUSH PRN PRN Heparin Heparin Sodium (Porcine) 25, 500 mls @ 20 mls/hr 11/17/18 14:45 11/18/18 21: 07 000 unit/ Sodium Chloride IV 800 unit/hr TITR ITZ 16 mls/hr Administration Protocol 1,000 UNIT/HR Levothyroxine Sodium 112 mcg 11/18/18 07:00 11/19/18 06:09 Synthroid - PO 112 mcg DAILY@0700 ITZ Administration Metoprolol Tartrate 5 mg 11/17/18 16:35 Lopressor Injection - IVPUSH Q4H PRN TACHYCARDIA Metoprolol Tartrate 25 mg 11/17/18 22:00 11/19/18 06:09 Lopressor - PO 25 mg TID ITZ Administration Vital Signs Period Temp Pulse Resp BP Sys/Dorsey Pulse Ox Last 24 Hr 97.7 F-98.8 F 61-92 16-25 101-139/61-100 99-99 Constitutional: Yes: No Distress Eyes: Yes: Conjunctiva Clear Neck: Yes: Other (+ JVD) Respiratory: Yes: Other (bibasilar rales) Cardiovascular: Yes: regular, nl s1, s2 JVD: Yes Carotid Bruit: No PMI: Non-Displaced Heart Sounds: Yes: S1, S2 (tachy, irreg) Edema: no Neurological: Yes: Alert no jaundice diaphoresis CBC, BMP 11/19/18 05:40 11/19/18 05:40 Imaging - Results Chest X-ray: Image Reviewed EKG: Image Reviewed Assessment/Plan IMP: 1. Atrial flutter with rapid ventricular response, unclear onset 2. Acute on chronic diastolic CHF, in setting of #1 3. History of ascending aortic aneursym, moderate 4. Hypothyroidism 5. Chronic hypertension 6. Elevated D-dimer REC: 1. Rapid atrial flutter: - now in sinus, will dc amio gtt - cont metoprolol -cont UFH gtt and plan to convert to oral NOAC if no bleeding issue 2. CHF: likely acute on chronic diastolic secondary to SUNSHINE - continue IV lasix -Supplemental O2 -Telemetry -Echo tds with mildly reduced LV function, grossly nl RV -Daily weights and BMP to follow lytes and renal fxn 3. Thoracic aneurysm:previously stable -Moderate, 4.6cm. - not visualized on echo, technically difficult - outpatient follow up - continue metoprolol 4. HTN: - BP improving, monitor - cont metoprolol 5. Hypothyroidism: - manage per primary 6. Elevated D-dimer: -Nonspecific -On AC for AFL -Can check LE duplex, low clinical suspicion for PE at this time -Would not subject her to dye load while in acute CHF
--- NOTE | 2018-11-19 13:44 | PN ---
Teaching Attending Note Name of Resident: Dahlia Caruso ATTENDING PHYSICIAN STATEMENT I saw and evaluated the patient. I reviewed the resident's note and discussed the case with the resident. I agree with the resident's findings and plan as documented. SUBJECTIVE: Patient seen and examined in the ICU. Rates better controlled, now in sinus rhythm. Breathing feels better. No CP. Some dry cough. Intake & Output 11/16/18 11/17/18 11/18/18 11/19/18 23:59 23:59 23:59 23:59 Intake Total 390 Output Total 450 Balance -60 Weight 155 lb 162 lb 14.4 oz 160 lb Last Vital Signs Temp Pulse Resp BP Pulse Ox 98.7 F 82 21 H 120/67 99 11/19/18 10:00 11/19/18 12:00 11/19/18 12:00 11/19/18 12:00 11/19/18 09:00 Active Medications Furosemide (Lasix Injection -) 40 mg IVPUSH DAILY [facility] Last Admin: 11/19/18 10:06 Dose: 40 mg Heparin Sodium (Porcine) (Heparin -) 1,000 unit IVPUSH PRN PRN PRN Reason: Heparin Last Admin: 11/18/18 13:18 Dose: 1,000 unit Heparin Sodium (Porcine) (Heparin -) 5,000 unit IVPUSH PRN PRN PRN Reason: Heparin Heparin Sodium (Porcine) 25, (000 unit/ Sodium Chloride) 500 mls @ 20 mls/hr IV TITR ITZ; Protocol Last Admin: 11/18/18 21:07 Dose: 800 unit/hr, 16 mls/hr Levothyroxine Sodium (Synthroid -) 112 mcg PO DAILY@0700 [facility] Last Admin: 11/19/18 06:09 Dose: 112 mcg Metoprolol Tartrate (Lopressor Injection -) 5 mg IVPUSH Q4H PRN PRN Reason: TACHYCARDIA Metoprolol Tartrate (Lopressor -) 25 mg PO TID [facility] Last Admin: 11/19/18 06:09 Dose: 25 mg Gen: Awake and alert, NAD Heart: irregular Lung: bibasilar rales Abd: soft, nontender Ext: no edema Laboratory Results - last 24 hr 11/18/18 11/18/18 11/18/18 08:22 10:23 12:30 WBC RBC Hgb Hct MCV MCH MCHC RDW Plt Count MPV Neutrophils % (Manual) 66.7 Band Neutrophils % 1.0 Lymphocytes % (Manual) 22.2 D Monocytes % (Manual) 7 Eosinophils % (Manual) 0.0 D Basophils % (Manual) 0.0 Myelocytes % (Man) 1 D Promyelocytes % (Man) 0 Blast Cells % (Manual) 0 Nucleated RBC % 0 Metamyelocytes 1 D Hypochromia 0 Platelet Estimate Normal Polychromasia 0 Poikilocytosis 0 Anisocytosis 0 Microcytosis 0 Macrocytosis 0 PTT (Actin FS) Sodium Potassium Chloride Carbon Dioxide Anion Gap BUN Creatinine Est GFR (CKD-EPI)AfAm Est GFR (CKD-EPI)NonAf Random Glucose Calcium Phosphorus Magnesium Total Bilirubin AST ALT Alkaline Phosphatase Troponin I 0.14 H Total Protein Albumin Total T3 64.00 L Urine Color Urine Appearance Urine pH Ur Specific [place] Urine Protein Urine Glucose (UA) Urine Ketones Urine Blood Urine Nitrite Urine Bilirubin Urine Urobilinogen Ur Leukocyte Esterase Urine WBC (Auto) Urine RBC (Auto) Urine Casts (Auto) U Epithel Cells (Auto) Urine Bacteria (Auto) 11/18/18 11/18/18 11/19/18 15:45 17:00 02:25 WBC RBC Hgb Hct MCV MCH MCHC RDW Plt Count MPV Neutrophils % (Manual) Band Neutrophils % Lymphocytes % (Manual) Monocytes % (Manual) Eosinophils % (Manual) Basophils % (Manual) Myelocytes % (Man) Promyelocytes % (Man) Blast Cells % (Manual) Nucleated RBC % Metamyelocytes Hypochromia Platelet Estimate Polychromasia Poikilocytosis Anisocytosis Microcytosis Macrocytosis PTT (Actin FS) 170.6 H 60.4 H Sodium Potassium Chloride Carbon Dioxide Anion Gap BUN Creatinine Est GFR (CKD-EPI)AfAm Est GFR (CKD-EPI)NonAf Random Glucose Calcium Phosphorus Magnesium Total Bilirubin AST ALT Alkaline Phosphatase Troponin I Total Protein Albumin Total T3 Urine Color [place] Urine Appearance Clear Urine pH 5.0 Ur Specific [place] 1.010 Urine Protein 1+ H Urine Glucose (UA) Negative Urine Ketones Negative Urine Blood 3+ H Urine Nitrite Negative Urine Bilirubin Negative Urine Urobilinogen 0.2 Ur Leukocyte Esterase Trace Urine WBC (Auto) 6 Urine RBC (Auto) 557 Urine Casts (Auto) 4 U Epithel Cells (Auto) 0.7 Urine Bacteria (Auto) 22.7 11/19/18 11/19/18 11/19/18 05:40 05:40 05:40 WBC 8.6 RBC 4.05 Hgb 12.7 Hct 37.2 MCV 91.8 MCH 31.4 MCHC 34.2 RDW 14.7 Plt Count 267 MPV 8.3 Neutrophils % (Manual) Band Neutrophils % Lymphocytes % (Manual) Monocytes % (Manual) Eosinophils % (Manual) Basophils % (Manual) Myelocytes % (Man) Promyelocytes % (Man) Blast Cells % (Manual) Nucleated RBC % Metamyelocytes Hypochromia Platelet Estimate Polychromasia Poikilocytosis Anisocytosis Microcytosis Macrocytosis PTT (Actin FS) 65.7 H Sodium 144 Potassium 3.4 L Chloride 108 H Carbon Dioxide 26 Anion Gap 9 BUN 33.8 H Creatinine 1.5 H Est GFR (CKD-EPI)AfAm 36.18 Est GFR (CKD-EPI)NonAf 31.22 Random Glucose 97 Calcium 8.3 L Phosphorus 4.0 Magnesium 1.8 Total Bilirubin 0.4 AST 18 ALT 18 Alkaline Phosphatase 48 Troponin I Total Protein 5.9 L Albumin 2.4 L Total T3 Urine Color Urine Appearance Urine pH Ur Specific [place] Urine Protein Urine Glucose (UA) Urine Ketones Urine Blood Urine Nitrite Urine Bilirubin Urine Urobilinogen Ur Leukocyte Esterase Urine WBC (Auto) Urine RBC (Auto) Urine Casts (Auto) U Epithel Cells (Auto) Urine Bacteria (Auto) 11/19/18 05:40 WBC RBC Hgb Hct MCV MCH MCHC RDW Plt Count MPV Neutrophils % (Manual) Band Neutrophils % Lymphocytes % (Manual) Monocytes % (Manual) Eosinophils % (Manual) Basophils % (Manual) Myelocytes % (Man) Promyelocytes % (Man) Blast Cells % (Manual) Nucleated RBC % Metamyelocytes Hypochromia Platelet Estimate Polychromasia Poikilocytosis Anisocytosis Microcytosis Macrocytosis PTT (Actin FS) Sodium Potassium Chloride Carbon Dioxide Anion Gap BUN Creatinine Est GFR (CKD-EPI)AfAm Est GFR (CKD-EPI)NonAf Random Glucose Calcium Phosphorus Magnesium Total Bilirubin AST ALT Alkaline Phosphatase Troponin I 0.08 H Total Protein Albumin Total T3 Urine Color Urine Appearance Urine pH Ur Specific [place] Urine Protein Urine Glucose (UA) Urine Ketones Urine Blood Urine Nitrite Urine Bilirubin Urine Urobilinogen Ur Leukocyte Esterase Urine WBC (Auto) Urine RBC (Auto) Urine Casts (Auto) U Epithel Cells (Auto) Urine Bacteria (Auto) ASSESSMENT AND PLAN: Atrial Fibrillation with RVR now in sinus Acute Systolic Heart Failure +Troponins likely [place]and Ischemia Acute Kidney Injury HTN Hyperlipidemia Anxiety Hypothyroidism - rate/rhythm control per cardiology - continue anticoagulation - O2 to keep SpO2 >90% - Lasix - monitor urine output, creatinine - Cardiac telemetry monitoring Dr Peres
--- NOTE | 2018-11-19 16:10 | EKG ---
Test Reason : Blood Pressure : / mmHG Vent. Rate : 176 BPM Atrial Rate : 020 BPM P-R Int : 000 ms QRS Dur : 102 ms QT Int : 286 ms P-R-T Axes : 000 -43 162 degrees QTc Int : 489 ms SUPRAVENTRICULAR TACHYCARDIA LEFT AXIS DEVIATION LEFT VENTRICULAR HYPERTROPHY WITH REPOLARIZATION ABNORMALITY ABNORMAL ECG WHEN COMPARED WITH ECG OF 17-NOV-2018 12:07, ST NOW DEPRESSED IN INFERIOR LEADS Confirmed by OBDULIA LUCIANO, SUJEY ([id number]) on 11/19/2018 4:09:55 PM Referred By: Confirmed By:SUJEY STEINER MD
--- NOTE | 2018-11-19 16:10 | EKG ---
Test Reason : Blood Pressure : / mmHG Vent. Rate : 095 BPM Atrial Rate : 095 BPM P-R Int : 158 ms QRS Dur : 114 ms QT Int : 308 ms P-R-T Axes : 022 -44 133 degrees QTc Int : 387 ms POOR DATA QUALITY, INTERPRETATION MAY BE ADVERSELY AFFECTED SINUS RHYTHM WITH PREMATURE ATRIAL COMPLEXES LEFT AXIS DEVIATION LEFT VENTRICULAR HYPERTROPHY WITH REPOLARIZATION ABNORMALITY ABNORMAL ECG WHEN COMPARED WITH ECG OF 18-NOV-2018 04:05, PREMATURE ATRIAL COMPLEXES ARE NOW PRESENT VENT. RATE HAS DECREASED BY 81 BPM T WAVE INVERSION NO LONGER EVIDENT IN INFERIOR LEADS T WAVE AMPLITUDE HAS DECREASED IN ANTERIOR LEADS Confirmed by SUJEY STEINER MD ([id number]) on 11/19/2018 4:10:04 PM Referred By: Confirmed By:SUJEY STEINER MD
[2018-11-19] MEDS: HEPARIN - 25,000 UNIT in SODIUM CHLORIDE 495 ML IV SCH (17:11)
[2018-11-19] MEDS: AMIODARONE IN DEXTROSE,ISO-OSM 360 MG/200 ML BAG IVPB SCH (17:15)
--- NOTE | 2018-11-19 19:29 | PN ---
Teaching Attending Note Name of Resident: Anusha Pina ATTENDING PHYSICIAN STATEMENT I saw and evaluated the patient. I reviewed the resident's note and discussed the case with the resident. I agree with the resident's findings and plan as documented with exceptions below. SUBJECTIVE: Patient seen and examined. Awake, breathing improved, denies any complaints. feeling better. OBJECTIVE: Vital Signs Period Temp Pulse Resp BP Sys/Dorsey Pulse Ox Last 24 Hr 97.7 F-98.7 F 70-90 16-25 110-139/61-100 98-99 Intake & Output 11/16/18 11/17/18 11/18/18 11/19/18 23:59 23:59 23:59 23:59 Intake Total 845 Output Total 1650 Balance -805 Weight 155 lb 162 lb 14.4 oz 160 lb General: lying in bed, improved respiration, no use of accessory muscles of respiration CVS:S1S2 irregular Chest; bibasilar rales, L>R Abdomen:soft, obese, NT Extremities: improved pedal edema Neck: soft, supple, distended neck veins Home Medications Medication Instructions Recorded Butalb/Acetaminophen/Caffeine 40 mg PO PRN 05/05/11 [Fioricet 50-325-40 mg Tablet] Diltiazem [Cardizem] 60 mg PO BID 05/05/11 Levothyroxine [Synthroid] 125 mcg PO DAILY 05/05/11 Metoprolol Tartrate [Lopressor] 50 mg PO BID 05/05/11 Pravastatin Sodium [Pravachol -] 20 mg PO DAILY 05/05/11 Alprazolam [Xanax] 0.25 mg PO TID 11/17/18 Ranitidine HCl [Zantac] 150 mg PO BID 11/17/18 Omeprazole 20 mg PO DAILY 11/18/18 Active Medications Furosemide (Lasix Injection -) 40 mg IVPUSH DAILY [facility] Last Admin: 11/19/18 10:06 Dose: 40 mg Heparin Sodium (Porcine) (Heparin -) 1,000 unit IVPUSH PRN PRN PRN Reason: Heparin Last Admin: 11/18/18 13:18 Dose: 1,000 unit Heparin Sodium (Porcine) (Heparin -) 5,000 unit IVPUSH PRN PRN PRN Reason: Heparin Heparin Sodium (Porcine) 25, (000 unit/ Sodium Chloride) 500 mls @ 20 mls/hr IV TITR [facility]; Protocol Last Admin: 11/19/18 17:11 Dose: Not Given Levothyroxine Sodium (Synthroid -) 112 mcg PO DAILY@0700 [facility] Last Admin: 11/19/18 06:09 Dose: 112 mcg Metoprolol Tartrate (Lopressor Injection -) 5 mg IVPUSH Q4H PRN PRN Reason: TACHYCARDIA Metoprolol Tartrate (Lopressor -) 25 mg PO TID [facility] Last Admin: 11/19/18 14:16 Dose: 25 mg Laboratory Results - last 24 hr 11/18/18 11/18/18 11/19/18 10:23 17:00 02:25 WBC RBC Hgb Hct MCV MCH MCHC RDW Plt Count MPV PTT (Actin FS) 60.4 H Sodium Potassium Chloride Carbon Dioxide Anion Gap BUN Creatinine Est GFR (CKD-EPI)AfAm Est GFR (CKD-EPI)NonAf Random Glucose Calcium Phosphorus Magnesium Total Bilirubin AST ALT Alkaline Phosphatase Troponin I Total Protein Albumin Total T3 64.00 L Urine Color [place] Urine Appearance Clear Urine pH 5.0 Ur Specific [place] 1.010 Urine Protein 1+ H Urine Glucose (UA) Negative Urine Ketones Negative Urine Blood 3+ H Urine Nitrite Negative Urine Bilirubin Negative Urine Urobilinogen 0.2 Ur Leukocyte Esterase Trace Urine WBC (Auto) 6 Urine RBC (Auto) 557 Urine Casts (Auto) 4 U Epithel Cells (Auto) 0.7 Urine Bacteria (Auto) 22.7 11/19/18 11/19/18 11/19/18 05:40 05:40 05:40 WBC 8.6 RBC 4.05 Hgb 12.7 Hct 37.2 MCV 91.8 MCH 31.4 MCHC 34.2 RDW 14.7 Plt Count 267 MPV 8.3 PTT (Actin FS) 65.7 H Sodium 144 Potassium 3.4 L Chloride 108 H Carbon Dioxide 26 Anion Gap 9 BUN 33.8 H Creatinine 1.5 H Est GFR (CKD-EPI)AfAm 36.18 Est GFR (CKD-EPI)NonAf 31.22 Random Glucose 97 Calcium 8.3 L Phosphorus 4.0 Magnesium 1.8 Total Bilirubin 0.4 AST 18 ALT 18 Alkaline Phosphatase 48 Troponin I Total Protein 5.9 L Albumin 2.4 L Total T3 Urine Color Urine Appearance Urine pH Ur Specific [place] Urine Protein Urine Glucose (UA) Urine Ketones Urine Blood Urine Nitrite Urine Bilirubin Urine Urobilinogen Ur Leukocyte Esterase Urine WBC (Auto) Urine RBC (Auto) Urine Casts (Auto) U Epithel Cells (Auto) Urine Bacteria (Auto) 11/19/18 05:40 WBC RBC Hgb Hct MCV MCH MCHC RDW Plt Count MPV PTT (Actin FS) Sodium Potassium Chloride Carbon Dioxide Anion Gap BUN Creatinine Est GFR (CKD-EPI)AfAm Est GFR (CKD-EPI)NonAf Random Glucose Calcium Phosphorus Magnesium Total Bilirubin AST ALT Alkaline Phosphatase Troponin I 0.08 H Total Protein Albumin Total T3 Urine Color Urine Appearance Urine pH Ur Specific [place] Urine Protein Urine Glucose (UA) Urine Ketones Urine Blood Urine Nitrite Urine Bilirubin Urine Urobilinogen Ur Leukocyte Esterase Urine WBC (Auto) Urine RBC (Auto) Urine Casts (Auto) U Epithel Cells (Auto) Urine Bacteria (Auto) ASSESSMENT AND PLAN: 88F HTN, HLD, Raynaud's disease, Anxiety, mild to moderate ascending aortic aneurysm (4.[address] 2014, stable), Hypothyroid, recent negative temporal artery bx on steroids, admitted with New onset CHF/tachycardia -Acute hypoxic respiratory failure -Acute systolic heart failure exacerbation, ?prednisone mediated -Atrial flutter/Fib with RVR -ELIEL , suspect cardiorenal -Elevated troponin, suspect demand type II NSTEMI from above rather than ACS. -HTN -HLD -Raynaud's disease -Anxiety -Mild to moderate Ascending aortic aneurysm (4.[address] in 2014) -Hypothyroidism -Recent negative temporal artery biopsy Plan: revered to NSR, off amio/diltiazem drip. metoprolol po heparin drip, transition to NOAC in Am. 2D echo noted. Lasix 40 mg IV daily, strict I/os, daily weights. Bipap prn. Tn flat Thyroid panel noted, patient with h/o thyrotoxicosis s/p PETERSON, now on supplementation. Endocrine input noted, levothyroxine 112 mcg daily, follow dialysis T4. Renal function unchanged. DVTPPX heparin drip Dispo agree with transfer out of ICU. home dc in 24 hours if continues to improve, PT eval, OOB, ambulatory oxygen saturations.
[2018-11-20] MEDS: METOPROLOL TARTRATE 25 MG TABLET (FP) PO SCH ×4 (06:07→20:16)
[2018-11-20] MEDS: LEVOTHYROXINE NA 112 MCG TABLET (FP) PO SCH (06:07)
[2018-11-20 06:57] LABS: HEMATOCRIT 36.9 % (32.4-45.2); HEMOGLOBIN 12.6 GM/dL (10.7-15.3); MCH 31.2 pg (25.7-33.7); MCHC 34.2 g/dl (32.0-36.0); MEAN PLT VOLUME 8.7 fl (7.5-11.1); PLATELET COUNT 265 K/MM3 (134-434); RBC 4.06 M/mm3 (3.60-5.2); RDW 15.1 % (11.6-15.6); WHITE BLOOD COUNT 8.6 K/mm3 (4.0-10.0)
[2018-11-20 07:40] LABS: ALBUMIN 2.4 g/dl (3.4-5.0); BILIRUBIN,TOTAL 0.4 mg/dL (0.2-1); BLOOD UREA NITROGEN 30.7 mg/dL (7-18); CALCIUM 8.3 mg/dL (8.5-10.1); CREATININE 1.3 mg/dL (0.55-1.3); MAGNESIUM 1.8 mg/dL (1.8-2.4); PHOSPHOROUS 3.4 mg/dL (2.5-4.9); POTASSIUM 3.5 mmol/L (3.5-5.1)
--- NOTE | 2018-11-20 07:49 | PN ---
Progress Note, Physician Chief Complaint: seen and examined ICU TELE: recurrent AF, overall controlled but some self limited bursts to 140s again O2 98% 2L; weight is stable at 160llbs She feels "not so good" Didn't sleep - Current Medication List Current Medications: Active Medications Furosemide (Lasix Injection -) 40 mg IVPUSH DAILY [facility] Last Admin: 11/19/18 10:06 Dose: 40 mg Heparin Sodium (Porcine) (Heparin -) 1,000 unit IVPUSH PRN PRN PRN Reason: Heparin Last Admin: 11/18/18 13:18 Dose: 1,000 unit Heparin Sodium (Porcine) (Heparin -) 5,000 unit IVPUSH PRN PRN PRN Reason: Heparin Heparin Sodium (Porcine) 25, (000 unit/ Sodium Chloride) 500 mls @ 20 mls/hr IV TITR [facility]; Protocol Last Admin: 11/19/18 17:11 Dose: Not Given Levothyroxine Sodium (Synthroid -) 112 mcg PO DAILY@0700 [facility] Last Admin: 11/20/18 06:07 Dose: 112 mcg Metoprolol Tartrate (Lopressor Injection -) 5 mg IVPUSH Q4H PRN PRN Reason: TACHYCARDIA Metoprolol Tartrate (Lopressor -) 25 mg PO TID [facility] Last Admin: 11/20/18 06:07 Dose: 25 mg - Objective Vital Signs: Vital Signs Temperature 98 F 11/20/18 06:00 Pulse Rate 101 H 11/20/18 06:00 Respiratory Rate 24 H 11/20/18 06:00 Blood Pressure 101/72 11/20/18 06:00 O2 Sat by Pulse Oximetry (%) 96 11/20/18 06:20 Constitutional: Yes: No Distress Eyes: Yes: Conjunctiva Clear Cardiovascular: Yes: Pulse Irregular Respiratory: Yes: Other (rales left base) Gastrointestinal: Yes: Soft, Other (distended) Edema: No Neurological: Yes: Alert, Oriented Labs: CBC, BMP 11/20/18 05:45 11/20/18 05:45 INR, PTT INR 1.00 (0.83-1.09) 11/17/18 10:26 Laboratory Tests 11/18/18 11/19/18 11/20/18 12:30 05:40 05:45 WBC 8.6 Hgb 12.6 Plt Count 265 PTT (Actin FS) Sodium Potassium BUN Creatinine Troponin I 0.14 H 0.08 H 11/20/18 11/20/18 05:45 05:45 WBC Hgb Plt Count PTT (Actin FS) 54.8 H Sodium 141 Potassium 3.5 BUN 30.7 H Creatinine 1.3 Troponin I - ....Imaging Chest X-ray: Image Reviewed (slight improvement) EKG: Image Reviewed Assessment/Plan IMP: 1. PAF w/ occasional RVR 2. Acute on chronic diastolic CHF, in setting of #1 3. History of ascending aortic aneursym, moderate 4. Hypothyroidism 5. Chronic hypertension 6. Elevated D-dimer REC: 1. PAF w/ RVR: - Heparin gtts to Eliquis today -Increase Metoprolol to q6h 2. CHF: likely acute on chronic diastolic secondary to SUNSHINE - continue IV lasix, increase to 60mg daily -Supplemental O2 -Telemetry -Echo tds with mildly reduced LV function, grossly nl RV -Daily weights and BMP to follow lytes and renal fxn 3. Thoracic aneurysm:previously stable -Moderate, 4.6cm. - not visualized on echo, technically difficult - outpatient follow up - continue metoprolol 4. HTN: - BP improving, monitor - cont metoprolol 5. Hypothyroidism: - manage per primary 6. Elevated D-dimer: -Nonspecific -On AC for AF -Can check LE duplex, low clinical suspicion for PE at this time -Would not subject her to dye load while in acute CHF
[2018-11-20] MEDS ORDERED: MAGNESIUM OXIDE 400 MG TABLET (FP) PO ONE (08:06)
[2018-11-20] MEDS ORDERED: POTASSIUM CHLORIDE TABS 20 MEQ TABLET.ER (FP) PO ONE (08:07)
[2018-11-20] MEDS: FUROSEMIDE 40 MG/4 ML INJECTABLE VIAL IVPUSH SCH (10:41)
[2018-11-20] MEDS: APIXABAN 2.5 MG TABLET PO SCH ×2 (10:41→22:15)
--- NOTE | 2018-11-20 11:01 | PN ---
Progress Note (short form) - Note Progress Note: Resting in NAD. Recurrent AFib with episodes of RVR. Reports Insomnia. Intake & Output 11/17/18 11/18/18 11/19/18 11/20/18 23:59 23:59 23:59 23:59 Intake Total 845 412 Output Total 1650 450 Balance -805 -38 Weight 155 lb 162 lb 14.4 oz 160 lb 160 lb Last Vital Signs Temp Pulse Resp BP Pulse Ox 98 F 101 H 24 H 101/72 98 11/20/18 06:00 11/20/18 06:00 11/20/18 06:00 11/20/18 06:00 11/20/18 08:19 Active Medications Apixaban (Eliquis -) 2.5 mg PO BID [facility] Last Admin: 11/20/18 10:41 Dose: 2.5 mg Furosemide (Lasix Injection -) 60 mg IVPUSH DAILY [facility] Last Admin: 11/20/18 10:41 Dose: 60 mg Levothyroxine Sodium (Synthroid -) 112 mcg PO DAILY@0700 [facility] Last Admin: 11/20/18 06:07 Dose: 112 mcg Metoprolol Tartrate (Lopressor Injection -) 5 mg IVPUSH Q4H PRN PRN Reason: TACHYCARDIA Metoprolol Tartrate (Lopressor -) 25 mg PO Q6H [facility] Last Admin: 11/20/18 08:45 Dose: 25 mg Gen: Awake and alert, NAD Heart: irregular Lung: bibasilar rales Abd: soft, nontender Ext: no edema Laboratory Results - last 24 hr 11/20/18 11/20/18 11/20/18 05:45 05:45 05:45 WBC 8.6 RBC 4.06 Hgb 12.6 Hct 36.9 MCV 91.0 MCH 31.2 MCHC 34.2 RDW 15.1 Plt Count 265 MPV 8.7 PTT (Actin FS) 54.8 H Sodium 141 Potassium 3.5 Chloride 106 Carbon Dioxide 28 Anion Gap 8 BUN 30.7 H Creatinine 1.3 Est GFR (CKD-EPI)AfAm 43.02 Est GFR (CKD-EPI)NonAf 37.12 Random Glucose 94 Calcium 8.3 L Phosphorus 3.4 Magnesium 1.8 Total Bilirubin 0.4 AST 15 ALT 17 Alkaline Phosphatase 49 Total Protein 6.0 L Albumin 2.4 L ASSESSMENT AND PLAN: Atrial Fibrillation with RVR now in sinus Acute Systolic Heart Failure +Troponins likely Demand Ischemia Acute Kidney Injury HTN Hyperlipidemia Anxiety Hypothyroidism - rate/rhythm control per cardiology - continue anticoagulation - O2 to keep SpO2 >90% - Lasix - monitor urine output, creatinine - Cardiac telemetry monitoring Dr Peres
--- NOTE | 2018-11-20 13:47 | PN ---
Teaching Attending Note Name of Resident: Anusha Pina ATTENDING PHYSICIAN STATEMENT I saw and evaluated the patient. I reviewed the resident's note and discussed the case with the resident. I agree with the resident's findings and plan as documented with exceptions below. SUBJECTIVE: Patient seen and examined. reports palpitations, today, breathing with some improvement. feels weak. OBJECTIVE: Vital Signs Period Temp Pulse Resp BP Sys/Dorsey Pulse Ox Last 24 Hr 97.2 F-98.2 F 79-101 18-26 101-126/54-86 96-98 Intake & Output 11/17/18 11/18/18 11/19/18 11/20/18 23:59 23:59 23:59 23:59 Intake Total 845 412 Output Total 1650 450 Balance -805 -38 Weight 155 lb 162 lb 14.4 oz 160 lb 160 lb General: sitting in bed, anxious, mild use of accessory muscles of respiration Chest: decreased air entry all over CVS:S1S2 irregular Abdomen:soft, obese, NT Extremities: improved pedal edema Telemetry; NSR with PACs 80s-90s Home Medications Medication Instructions Recorded Butalb/Acetaminophen/Caffeine 40 mg PO PRN 05/05/11 [Fioricet 50-325-40 mg Tablet] Diltiazem [Cardizem] 60 mg PO BID 05/05/11 Levothyroxine [Synthroid] 125 mcg PO DAILY 05/05/11 Metoprolol Tartrate [Lopressor] 50 mg PO BID 05/05/11 Pravastatin Sodium [Pravachol -] 20 mg PO DAILY 05/05/11 Alprazolam [Xanax] 0.25 mg PO TID 11/17/18 Ranitidine HCl [Zantac] 150 mg PO BID 11/17/18 Omeprazole 20 mg PO DAILY 11/18/18 Active Medications Apixaban (Eliquis -) 2.5 mg PO BID [facility] Last Admin: 11/20/18 10:41 Dose: 2.5 mg Furosemide (Lasix Injection -) 60 mg IVPUSH DAILY [facility] Last Admin: 11/20/18 10:41 Dose: 60 mg Levothyroxine Sodium (Synthroid -) 112 mcg PO DAILY@0700 [facility] Last Admin: 11/20/18 06:07 Dose: 112 mcg Metoprolol Tartrate (Lopressor Injection -) 5 mg IVPUSH Q4H PRN PRN Reason: TACHYCARDIA Metoprolol Tartrate (Lopressor -) 25 mg PO Q6H [facility] Last Admin: 11/20/18 13:27 Dose: Not Given Laboratory Results - last 24 hr 11/20/18 11/20/18 11/20/18 05:45 05:45 05:45 WBC 8.6 RBC 4.06 Hgb 12.6 Hct 36.9 MCV 91.0 MCH 31.2 MCHC 34.2 RDW 15.1 Plt Count 265 MPV 8.7 PTT (Actin FS) 54.8 H Sodium 141 Potassium 3.5 Chloride 106 Carbon Dioxide 28 Anion Gap 8 BUN 30.7 H Creatinine 1.3 Est GFR (CKD-EPI)AfAm 43.02 Est GFR (CKD-EPI)NonAf 37.12 Random Glucose 94 Calcium 8.3 L Phosphorus 3.4 Magnesium 1.8 Total Bilirubin 0.4 AST 15 ALT 17 Alkaline Phosphatase 49 Total Protein 6.0 L Albumin 2.4 L ASSESSMENT AND PLAN: 88F HTN, HLD, Raynaud's disease, Anxiety, mild to moderate ascending aortic aneurysm (4.[address] 2014, stable), Hypothyroid, recent negative temporal artery bx on steroids, admitted with New onset CHF/tachycardia -Acute hypoxic respiratory failure -Acute systolic heart failure exacerbation, ?prednisone mediated -Atrial flutter/Fib with RVR -ELIEL , suspect cardiorenal -Elevated troponin, suspect demand type II NSTEMI from above rather than ACS. -HTN -HLD -Raynaud's disease -Anxiety -Mild to moderate Ascending aortic aneurysm (4.[address] in 2014) -Hypothyroidism -Recent negative temporal artery biopsy Plan: NSR with PACs. HR 80s-90s. patient symptomatic. Metoprolol increased 25 mg q6h. Off diltiazem/amiodarone/heparin drip. Eliquis renal dosing. Lasix increased 60 mg IV dailly. D/c barrett. Bipap prn. Thyroid panel noted, patient with h/o thyrotoxicosis s/p PETERSON, now on supplementation. Endocrine input noted, levothyroxine 112 mcg daily, follow up dialysis T4. Renal function unchanged. DVTPPX eliquis PT eval and home oxygen needs assessment for d/c planning. Plan for dc in 48 hours if improves. Discussed with patient and RN.
--- NOTE | 2018-11-20 18:25 | PN ---
Physical Exam: SUBJECTIVE: Patient seen and examined. Sitting out in chair, no chest pain. S/o back itch. HR relatively better controlled. Was in sinus till am, with possible PACs/afib. Now on NOAC OBJECTIVE: Vital Signs Period Temp Pulse Resp BP Sys/Dorsey Pulse Ox Last 24 Hr 97.2 F-98.2 F 82-101 17-26 101-119/54-86 96-98 Vital Signs Temp 98 F 11/20/18 15:47 Pulse 86 11/20/18 15:47 Resp 17 11/20/18 15:47 BP 101/62 11/20/18 15:47 Pulse Ox 97 11/20/18 16:46 Intake & Output 11/19/18 11/20/18 11/20/18 23:59 11:59 23:59 Intake Total 455 412 348 Output Total 1200 450 650 Balance -745 -38 -302 Weight 72.575 kg 72.575 kg Intake: IV 275 192 48 Heparin - 25,000 Unit In 192 192 48 Normal Saline - 495 ml @ 1,000 UNIT/HR 20 mls/hr IV TITR [facility] Rx#: [id number] saline lock 83 Oral 180 220 300 Output: Urine 1200 450 650 Roberts 1200 450 650 Other: Voiding Method Indwelling Catheter Indwelling Catheter Bowel Movement No No Yes Height 1.55 m Body Mass Index (BMI) 30.2 Weight Measurement Method Built in [facility] GENERAL: The patient is awake, alert, and fully oriented, in no acute distress. LUNGS: Fine few crackles HEART: Regular rate and rhythm, S1, S2 without murmur, rub or gallop. ABDOMEN: Soft, nontender, nondistended, normoactive bowel sounds, no guarding, no rebound, no hepatosplenomegaly, no masses. EXTREMITIES: 2+ pulses, warm, well-perfused, no edema. NEUROLOGICAL: Cranial nerves II through XII grossly intact. Normal speech, gait not observed. PSYCH: Normal mood, normal affect. SKIN: Warm, dry, normal turgor, no rashes or lesions noted Laboratory Results - last 24 hr 11/20/18 11/20/18 11/20/18 05:45 05:45 05:45 WBC 8.6 RBC 4.06 Hgb 12.6 Hct 36.9 MCV 91.0 MCH 31.2 MCHC 34.2 RDW 15.1 Plt Count 265 MPV 8.7 PTT (Actin FS) 54.8 H Sodium 141 Potassium 3.5 Chloride 106 Carbon Dioxide 28 Anion Gap 8 BUN 30.7 H Creatinine 1.3 Est GFR (CKD-EPI)AfAm 43.02 Est GFR (CKD-EPI)NonAf 37.12 Random Glucose 94 Calcium 8.3 L Phosphorus 3.4 Magnesium 1.8 Total Bilirubin 0.4 AST 15 ALT 17 Alkaline Phosphatase 49 Total Protein 6.0 L Albumin 2.4 L Active Medications Generic Name Dose Route Start Last Admin Trade Name Freq PRN Reason Stop Dose Admin Apixaban 2.5 mg 11/20/18 10:00 11/20/18 10:41 Eliquis - PO 2.5 mg BID [facility] Administration Furosemide 60 mg 11/20/18 10:00 11/20/18 10:41 Lasix Injection - IVPUSH 60 mg DAILY [facility] Administration Levothyroxine Sodium 112 mcg 11/18/18 07:00 11/20/18 06:07 Synthroid - PO 112 mcg DAILY@0700 [facility] Administration Metoprolol Tartrate 5 mg 11/17/18 16:35 Lopressor Injection - IVPUSH Q4H PRN TACHYCARDIA Metoprolol Tartrate 25 mg 11/20/18 08:00 11/20/18 13:27 Lopressor - PO Not Given Q6H [facility] Ambulatory Orders Butalb/Acetaminophen/Caffeine [Fioricet 50-325-40 mg Tablet] 40 mg PO PRN Diltiazem [Cardizem] 60 mg PO BID 05/05/11 Levothyroxine [Synthroid] 125 mcg PO DAILY 05/05/11 Metoprolol Tartrate [Lopressor] 50 mg PO BID 05/05/11 Pravastatin Sodium [Pravachol -] 20 mg PO DAILY 05/05/11 Alprazolam [Xanax] 0.25 mg PO TID 11/17/18 Ranitidine HCl [Zantac] 150 mg PO BID 11/17/18 Omeprazole 20 mg PO DAILY 11/18/18 Current Medications Apixaban (Eliquis -) 2.5 mg PO BID [facility] Last Admin: 11/20/18 10:41 Dose: 2.5 mg Furosemide (Lasix Injection -) 60 mg IVPUSH DAILY [facility] Last Admin: 11/20/18 10:41 Dose: 60 mg Levothyroxine Sodium (Synthroid -) 112 mcg PO DAILY@0700 [facility] Last Admin: 11/20/18 06:07 Dose: 112 mcg Metoprolol Tartrate (Lopressor Injection -) 5 mg IVPUSH Q4H PRN PRN Reason: TACHYCARDIA Metoprolol Tartrate (Lopressor -) 25 mg PO Q6H [facility] Last Admin: 11/20/18 13:27 Dose: Not Given ASSESSMENT/PLAN: Pt is an 88 yo F with PMHx of HTN, Hypothyroidism, anxiety, carpal tunnel syndrome, lumbosacral radiculopathy, osteoporosis,proteinuria, chronic renal insuff, overactive bladder,GERD, PACs/PVCs, PAD, Raynaud's, thoracic aneurysm without rupture, thyrotoxicosis s/p PETERSON, varicose veins, artherosclerotic carotid a, MR, HLD,SVT, headaches relieved with fiorecet, presenting from home for shortness of breath started about 4 weeks ago, worsened over past 2days with inability to get out of bed day of presentation. #Aflutter w/RVR- Pt appears to have a hx of SVT on metoprolol and dilt at home, received adenosine, digoxin, iv dilt, amio, dit drip, Was titrated off dilt drip and cont amio, Now being transitioned off amio drip to metoprolol -per cards heparin drip stopped now on eliquis [id number], now on heparin per ICU conversation with cards, pt may be transitioned to NOACS if no contraindications #Pulm edema Improving cont diuresis, lasix increased to 60mg iv from 40mg #HTN- cont metoprolol, 25mg Q6H dilt drip titrated per cards Cont lasix #Hypothyroidism- Cont levothyroxine , Hx of thyrotoxicosis, s/p RAIU then levothyroxine, TSH and T4 elevated, Dr Oneil on board, thinks T4 elevated due to calibration, FT4 pending, #HLD- Holding pravastatin #SVT- mixed rhythms including SVT noted this admission, cont rate control, AC, and off amio, pt in sinus #elevated trops- likely demand in setting of tachycardia anxiety- xanax, last filled May 2018, for 0.5mg tid - Tachypnea- due to increased work with tachycardia, Bipap as needed Pt on NC headaches- last floricet prescription July 16, not picked up Negative biopsy for temporal arteritis Recent high steroid use carpal tunnel syndrome, lumbosacral radiculopathy, osteoporosis, proteinuria, chronic renal insuff, overactive bladder, GERD, PACs/PVCs, PAD, Raynaud's, thoracic aneurysm without rupture, thyrotoxicosis s/p PETERSON, varicose veins, artherosclerotic carotid a, MR, SVT, Visit type - Emergency Visit Emergency Visit: Yes ED Registration Date: 11/17/18 Care time: The patient presented to the Emergency Department on the above date and was hospitalized for further evaluation of their emergent condition. - New Patient This patient is new to me today: No - Critical Care Critical Care patient: No - Discharge Referral [facility]erred to [facility] Med P.C.: No ATTENDING PHYSICIAN STATEMENT I saw and evaluated the patient. I reviewed the resident's note and discussed the case with the resident. I agree with the resident's findings and plan as documented. SUBJECTIVE: OBJECTIVE: ASSESSMENT AND PLAN:
[2018-11-21] MEDS: METOPROLOL TARTRATE 25 MG TABLET (FP) PO SCH ×4 (02:44→20:44)
[2018-11-21 06:28] LABS: BASO % 0.6 % (0-2.0); EOS % 2.9 % (0-4.5); HEMATOCRIT 38.4 % (32.4-45.2); HEMOGLOBIN 13.2 GM/dL (10.7-15.3); LYMPH % 20.8 % (8-40); MCH 31.5 pg (25.7-33.7); MCHC 34.2 g/dl (32.0-36.0); MEAN PLT VOLUME 8.3 fl (7.5-11.1); NEUT % 66.7 % (42.8-82.8); PLATELET COUNT 264 K/MM3 (134-434); RBC 4.17 M/mm3 (3.60-5.2); RDW 14.9 % (11.6-15.6); WHITE BLOOD COUNT 9.2 K/mm3 (4.0-10.0)
[2018-11-21] MEDS: LEVOTHYROXINE NA 112 MCG TABLET (FP) PO SCH (06:29)
[2018-11-21 06:54] LABS: ALBUMIN 2.7 g/dl (3.4-5.0); BILIRUBIN,TOTAL 0.4 mg/dL (0.2-1); BLOOD UREA NITROGEN 28.1 mg/dL (7-18); CALCIUM 9.3 mg/dL (8.5-10.1); CREATININE 1.3 mg/dL (0.55-1.3); PHOSPHOROUS 3.4 mg/dL (2.5-4.9); POTASSIUM 4.1 mmol/L (3.5-5.1); TOT PROT 6.4 g/dl (6.4-8.2)
--- NOTE | 2018-11-21 08:13 | PN ---
Progress Note, Physician - Current Medication List Current Medications: Active Medications Apixaban (Eliquis -) 2.5 mg PO BID [facility] Last Admin: 11/20/18 22:15 Dose: 2.5 mg Furosemide (Lasix Injection -) 60 mg IVPUSH DAILY [facility] Last Admin: 11/20/18 10:41 Dose: 60 mg Levothyroxine Sodium (Synthroid -) 112 mcg PO DAILY@0700 [facility] Last Admin: 11/21/18 06:29 Dose: 112 mcg Metoprolol Tartrate (Lopressor Injection -) 5 mg IVPUSH Q4H PRN PRN Reason: TACHYCARDIA Metoprolol Tartrate (Lopressor -) 25 mg PO Q6H [facility] Last Admin: 11/21/18 02:44 Dose: 25 mg - Objective Vital Signs: Vital Signs Temperature 98 F 11/21/18 07:00 Pulse Rate 80 11/21/18 07:00 Respiratory Rate 18 11/21/18 07:00 Blood Pressure 120/68 11/21/18 07:00 O2 Sat by Pulse Oximetry (%) 98 11/21/18 08:08 Labs: CBC, BMP 11/21/18 05:35 11/21/18 05:35 INR, PTT INR 1.00 (0.83-1.09) 11/17/18 10:26 Assessment/Plan IMP: 1. PAF w/ occasional RVR 2. Acute on chronic diastolic CHF, in setting of #1 3. History of ascending aortic aneursym, moderate 4. Hypothyroidism 5. Chronic hypertension 6. Elevated D-dimer REC: 1. PAF w/ RVR: - Heparin gtts to Eliquis today -Increase Metoprolol to q6h 2. CHF: likely acute on chronic diastolic secondary to SUNSHINE - continue IV lasix, increase to 60mg daily -Supplemental O2 -Telemetry -Echo tds with mildly reduced LV function, grossly nl RV -Daily weights and BMP to follow lytes and renal fxn 3. Thoracic aneurysm:previously stable -Moderate, 4.6cm. - not visualized on echo, technically difficult - outpatient follow up - continue metoprolol 4. HTN: - BP improving, monitor - cont metoprolol 5. Hypothyroidism: - manage per primary 6. Elevated D-dimer: -Nonspecific -On AC for AF -Can check LE duplex, low clinical suspicion for PE at this time -Would not subject her to dye load while in acute CHF
--- NOTE | 2018-11-21 08:15 | PN ---
Progress Note, Physician Chief Complaint: weight down again TELE: NSR, APCs Feeling better. Sitting in chair C/o "itchy back" - Current Medication List Current Medications: Active Medications Apixaban (Eliquis -) 2.5 mg PO BID [facility] Last Admin: 11/20/18 22:15 Dose: 2.5 mg Furosemide (Lasix Injection -) 60 mg IVPUSH DAILY [facility] Last Admin: 11/20/18 10:41 Dose: 60 mg Levothyroxine Sodium (Synthroid -) 112 mcg PO DAILY@0700 [facility] Last Admin: 11/21/18 06:29 Dose: 112 mcg Metoprolol Tartrate (Lopressor Injection -) 5 mg IVPUSH Q4H PRN PRN Reason: TACHYCARDIA Metoprolol Tartrate (Lopressor -) 25 mg PO Q6H [facility] Last Admin: 11/21/18 02:44 Dose: 25 mg - Objective Vital Signs: Vital Signs Temperature 98 F 11/21/18 07:00 Pulse Rate 80 11/21/18 07:00 Respiratory Rate 18 11/21/18 07:00 Blood Pressure 120/68 11/21/18 07:00 O2 Sat by Pulse Oximetry (%) 98 11/21/18 08:08 Constitutional: Yes: Calm Cardiovascular: Yes: Regular Rate and Rhythm Respiratory: Yes: Other (rales bases 1/3 b/l) Gastrointestinal: Yes: Soft Edema: No Neurological: Yes: Alert, Oriented ...Motor Strength: WNL Labs: CBC, BMP 11/21/18 05:35 11/21/18 05:35 INR, PTT INR 1.00 (0.83-1.09) 11/17/18 10:26 - ....Imaging EKG: Image Reviewed Assessment/Plan IMP: 1. PAF w/ occasional RVR 2. Acute on chronic diastolic CHF, in setting of #1 3. History of ascending aortic aneursym, moderate 4. Hypothyroidism 5. Chronic hypertension 6. Elevated D-dimer REC: 1. PAF w/ RVR: - On Eliquis, adjusted for age, renal fx -Increased Metoprolol to q6h 11/20, rates improved. Convert to XL in next 24 hours 2. CHF: likely acute on chronic diastolic secondary to SUNSHINE - continue Lasix 60mg IV daily (increased on 11/20); clinically improved, but still w/ rales. -Supplemental O2 -Telemetry -Echo tds with mildly reduced LV function, grossly nl RV -Daily weights and BMP to follow lytes and renal fxn 3. Thoracic aneurysm:previously stable -Moderate, 4.6cm. - not visualized on echo, technically difficult - outpatient follow up - continue metoprolol 4. HTN: - BP improving, monitor - cont metoprolol 5. Hypothyroidism: - manage per primary 6. Elevated D-dimer: -Nonspecific -On AC for AF -Can check LE duplex, low clinical suspicion for PE at this time -Would not subject her to dye load while in acute CHF
[2018-11-21] MEDS: FUROSEMIDE 40 MG/4 ML INJECTABLE VIAL IVPUSH SCH (09:02)
[2018-11-21] MEDS: APIXABAN 2.5 MG TABLET PO SCH ×2 (09:02→21:04)
--- NOTE | 2018-11-21 11:22 | PN ---
Progress Note (short form) - Note Progress Note: Resting in NAD. Reports feeling better. No acute events overnight. Intake & Output 11/18/18 11/19/18 11/20/18 11/21/18 23:59 23:59 23:59 23:59 Intake Total 845 960 200 Output Total 1650 1100 Balance -805 -140 200 Weight 162 lb 14.4 oz 160 lb 160 lb 157 lb 9 oz Last Vital Signs Temp Pulse Resp BP Pulse Ox 98 F 80 18 120/68 100 11/21/18 07:00 11/21/18 07:00 11/21/18 07:00 11/21/18 07:00 11/21/18 09:33 Active Medications Apixaban (Eliquis -) 2.5 mg PO BID [facility] Last Admin: 11/21/18 09:02 Dose: 2.5 mg Furosemide (Lasix Injection -) 60 mg IVPUSH DAILY [facility] Last Admin: 11/21/18 09:02 Dose: 60 mg Levothyroxine Sodium (Synthroid -) 112 mcg PO DAILY@0700 [facility] Last Admin: 11/21/18 06:29 Dose: 112 mcg Metoprolol Tartrate (Lopressor Injection -) 5 mg IVPUSH Q4H PRN PRN Reason: TACHYCARDIA Metoprolol Tartrate (Lopressor -) 25 mg PO Q6H [facility] Last Admin: 11/21/18 08:18 Dose: 25 mg Gen: Awake and alert, NAD Heart: irregular Lung: bibasilar rales Abd: soft, nontender Ext: no edema Laboratory Results - last 24 hr 11/21/18 11/21/18 11/21/18 05:35 05:35 05:35 WBC 9.2 RBC 4.17 Hgb 13.2 Hct 38.4 MCV 92.0 MCH 31.5 MCHC 34.2 RDW 14.9 Plt Count 264 MPV 8.3 Absolute Neuts (auto) 6.1 Neutrophils % 66.7 Lymphocytes % 20.8 Monocytes % 9.0 Eosinophils % 2.9 D Basophils % 0.6 Nucleated RBC % 0 PTT (Actin FS) 29.6 Sodium 140 Potassium 4.1 Chloride 102 Carbon Dioxide 31 Anion Gap 6 L BUN 28.1 H Creatinine 1.3 Est GFR (CKD-EPI)AfAm 43.02 Est GFR (CKD-EPI)NonAf 37.12 Random Glucose 91 Calcium 9.3 Phosphorus 3.4 Magnesium 2.0 Total Bilirubin 0.4 AST 15 ALT 20 Alkaline Phosphatase 47 Total Protein 6.4 Albumin 2.7 L ASSESSMENT AND PLAN: Atrial Fibrillation with RVR now in sinus Acute Systolic Heart Failure +Troponins likely Demand Ischemia Acute Kidney Injury HTN Hyperlipidemia Anxiety Hypothyroidism - rate/rhythm control per cardiology - continue anticoagulation - O2 to keep SpO2 >90% - Lasix - monitor urine output, creatinine - Cardiac telemetry monitoring Dr Peres
[2018-11-21 12:00] LABS: ANISOCYTOSIS 0; MACROCYTOSIS 0; PLATELET ESTIMATE NORMAL
--- NOTE | 2018-11-21 13:15 | PN ---
Physical Exam: SUBJECTIVE: Patient seen and examined, breathing improved. Denies any palpitations. Eager to go home. OBJECTIVE: Vital Signs Period Temp Pulse Resp BP Sys/Dorsey Pulse Ox Last 24 Hr 97.6 F-98.3 F 80-93 16-25 101-124/54-72 97-100 Intake & Output 11/18/18 11/19/18 11/20/18 11/21/18 23:59 23:59 23:59 23:59 Intake Total 845 960 200 Output Total 1650 1100 Balance -805 -140 200 Weight 162 lb 14.4 oz 160 lb 160 lb 157 lb 9 oz General: sitting in bed, improved, able to talk in full sentences, no use of accessory muscles of respiration Chest: improved air entry, no wheezing CVS:S1S2 irregular Abdomen:soft, obese, NT Extremities: improved pedal edema Neck: soft, supple, improved neck distension Telemetry; Afib 80s-90s Laboratory Results - last 24 hr 11/21/18 11/21/18 11/21/18 05:35 05:35 05:35 WBC 9.2 RBC 4.17 Hgb 13.2 Hct 38.4 MCV 92.0 MCH 31.5 MCHC 34.2 RDW 14.9 Plt Count 264 MPV 8.3 Absolute Neuts (auto) 6.1 Neutrophils % 66.7 Neutrophils % (Manual) 64.0 Band Neutrophils % 0.0 Lymphocytes % 20.8 Lymphocytes % (Manual) 23.0 Monocytes % 9.0 Monocytes % (Manual) 4 Eosinophils % 2.9 D Eosinophils % (Manual) 5.0 H D Basophils % 0.6 Basophils % (Manual) 0.0 Myelocytes % (Man) 1 Promyelocytes % (Man) 0 Blast Cells % (Manual) 0 Nucleated RBC % 0 Metamyelocytes 0 D Hypochromia 0 Platelet Estimate Normal Polychromasia 0 Poikilocytosis 0 Anisocytosis 0 Microcytosis 0 Macrocytosis 0 PTT (Actin FS) 29.6 Sodium 140 Potassium 4.1 Chloride 102 Carbon Dioxide 31 Anion Gap 6 L BUN 28.1 H Creatinine 1.3 Est GFR (CKD-EPI)AfAm 43.02 Est GFR (CKD-EPI)NonAf 37.12 Random Glucose 91 Calcium 9.3 Phosphorus 3.4 Magnesium 2.0 Total Bilirubin 0.4 AST 15 ALT 20 Alkaline Phosphatase 47 Total Protein 6.4 Albumin 2.7 L Active Medications Generic Name Dose Route Start Last Admin Trade Name Freq PRN Reason Stop Dose Admin Apixaban 2.5 mg 11/20/18 10:00 11/21/18 09:02 Eliquis - PO 2.5 mg BID [facility] Administration Furosemide 60 mg 11/20/18 10:00 11/21/18 09:02 Lasix Injection - IVPUSH 60 mg DAILY [facility] Administration Levothyroxine Sodium 112 mcg 11/18/18 07:00 11/21/18 06:29 Synthroid - PO 112 mcg DAILY@0700 [facility] Administration Metoprolol Tartrate 5 mg 11/17/18 16:35 Lopressor Injection - IVPUSH Q4H PRN TACHYCARDIA Metoprolol Tartrate 25 mg 11/20/18 08:00 11/21/18 08:18 Lopressor - PO 25 mg Q6H [facility] Administration ASSESSMENT/PLAN: 88F HTN, HLD, Raynaud's disease, Anxiety, mild to moderate ascending aortic aneurysm (4.[address] 2014, stable), Hypothyroid, recent negative temporal artery bx on steroids, admitted with New onset CHF/tachycardia -Acute hypoxic respiratory failure -Acute systolic heart failure exacerbation, ?prednisone mediated -Atrial flutter/Fib with RVR -ELIEL , suspect cardiorenal -Elevated troponin, suspect demand type II NSTEMI from above rather than ACS. -HTN -HLD -Raynaud's disease -Anxiety -Mild to moderate Ascending aortic aneurysm (4.[address] in 2014) -Hypothyroidism -Recent negative temporal artery biopsy Plan: Afib but HR controlled. Continue metoprolol 25 mg PO q6h. Off diltiazem/amiodarone/heparin drip. Eliquis renal dosing. Lasix increased 60 mg IV dailly. transition to PO in AM if continues to improve. Roberts dced. Bipap prn. Thyroid panel noted, patient with h/o thyrotoxicosis s/p PETERSON, now on supplementation. Endocrine input noted, levothyroxine 112 mcg daily, follow up dialysis T4. Renal function unchanged. DVTPPX eliquis PT eval and home oxygen needs assessment for d/c planning. Plan for dc in 24-48 hours if improves. Discussed with patient,son at bedside and RN. Visit type - Emergency Visit Emergency Visit: Yes ED Registration Date: 11/17/18 Care time: The patient presented to the Emergency Department on the above date and was hospitalized for further evaluation of their emergent condition. - New Patient This patient is new to me today: No - Critical Care Critical Care patient: No - Discharge Referral Referred to [facility] Med P.C.: No
[2018-11-21] MEDS ORDERED: PT OWN MED DRAWER 7, Y5N ONE (14:03)
[2018-11-21] MEDS ORDERED: METOPROLOL TARTRATE 5 MG/5 ML VIAL IVPUSH PRN (19:10)
[2018-11-21] MEDS ORDERED: HEPARIN NA (PORCINE) 5,000 UNITS/ML 1ML VIAL IVPUSH PRN ×2 (19:10)
[2018-11-21] MEDS: MINERAL OIL/PET HY-PHL TOPICAL OINTMENT 454 GM JAR TP SCH (21:05)
[2018-11-21 21:22] LABS: HEMATOCRIT 39.1 % (32.4-45.2); HEMOGLOBIN 13.2 GM/dL (10.7-15.3); MCH 31.1 pg (25.7-33.7); MCHC 33.7 g/dl (32.0-36.0); MEAN CELL VOLUME 92.4 fl (80-96); MEAN PLT VOLUME 8.4 fl (7.5-11.1); PLATELET COUNT 247 K/MM3 (134-434); RBC 4.23 M/mm3 (3.60-5.2); RDW 15.1 % (11.6-15.6); WHITE BLOOD COUNT 9.7 K/mm3 (4.0-10.0)
[2018-11-22] MEDS: METOPROLOL TARTRATE 25 MG TABLET (FP) PO SCH (02:29)
[2018-11-22] MEDS: LEVOTHYROXINE NA 112 MCG TABLET (FP) PO SCH (06:14)
[2018-11-22 07:11] LABS: HEMATOCRIT 39.3 % (32.4-45.2); HEMOGLOBIN 13.3 GM/dL (10.7-15.3); MCHC 33.7 g/dl (32.0-36.0); MEAN PLT VOLUME 8.7 fl (7.5-11.1); PLATELET COUNT 244 K/MM3 (134-434); RBC 4.28 M/mm3 (3.60-5.2); RDW 15.2 % (11.6-15.6); WHITE BLOOD COUNT 9.1 K/mm3 (4.0-10.0)
[2018-11-22 07:19] LABS: ALBUMIN 2.8 g/dl (3.4-5.0); BILIRUBIN,TOTAL 0.3 mg/dL (0.2-1); BLOOD UREA NITROGEN 33.8 mg/dL (7-18); CALCIUM 9.5 mg/dL (8.5-10.1); CREATININE 1.5 mg/dL (0.55-1.3); MAGNESIUM 2.1 mg/dL (1.8-2.4); PHOSPHOROUS 3.4 mg/dL (2.5-4.9); POTASSIUM 3.8 mmol/L (3.5-5.1); TOT PROT 6.6 g/dl (6.4-8.2)
--- NOTE | 2018-11-22 07:42 | PN ---
Progress Note, Physician Chief Complaint: weight down to 154lbs C/o itchy skin again TELE: Rate controlled AF. - Current Medication List Current Medications: Active Medications Apixaban (Eliquis -) 2.5 mg PO BID [facility] Last Admin: 11/21/18 21:04 Dose: 2.5 mg Emollient Ointment (Aquaphor -) 1 applic TP BID [facility] Last Admin: 11/21/18 21:05 Dose: 1 applic Furosemide (Lasix Injection -) 60 mg IVPUSH DAILY [facility] Last Admin: 11/21/18 09:02 Dose: 60 mg Levothyroxine Sodium (Synthroid -) 112 mcg PO DAILY@0700 [facility] Last Admin: 11/22/18 06:14 Dose: 112 mcg Metoprolol Tartrate (Lopressor -) 25 mg PO Q6H [facility] Last Admin: 11/22/18 02:29 Dose: 25 mg Metoprolol Tartrate (Lopressor Injection -) 5 mg IVPUSH Q4H PRN PRN Reason: TACHYCARDIA - Objective Vital Signs: Vital Signs Temperature 98 F 11/22/18 07:38 Pulse Rate 80 11/22/18 07:38 Respiratory Rate 18 11/22/18 07:38 Blood Pressure 113/58 L 11/22/18 07:38 O2 Sat by Pulse Oximetry (%) 100 11/21/18 21:00 Constitutional: Yes: No Distress Cardiovascular: Yes: Pulse Irregular Respiratory: Yes: Other (rales at bases, L> R) Gastrointestinal: Yes: Soft Edema: No Labs: CBC, BMP 11/22/18 05:50 11/22/18 05:50 INR, PTT INR 1.00 (0.83-1.09) 11/17/18 10:26 Laboratory Tests 11/21/18 11/21/18 11/22/18 05:35 05:35 05:50 WBC 9.2 9.1 Hgb 13.2 13.3 Plt Count 264 244 Sodium 140 Potassium 4.1 BUN 28.1 H Creatinine 1.3 Total Bilirubin AST ALT Alkaline Phosphatase 11/22/18 05:50 WBC Hgb Plt Count Sodium 140 Potassium 3.8 BUN 33.8 H Creatinine 1.5 H Total Bilirubin 0.3 AST 15 ALT 19 Alkaline Phosphatase 47 - ....Imaging EKG: Image Reviewed Assessment/Plan IMP: 1. PAF w/ occasional RVR, now controlled. 2. Acute on chronic diastolic CHF, in setting of #1 3. History of ascending aortic aneursym, moderate 4. Hypothyroidism 5. Chronic hypertension 6. Elevated D-dimer REC: 1. PAF w/ RVR: - On Eliquis, adjusted for age, renal fx -Increased Metoprolol to q6h 11/20, rates improved. Convert to XL 2. CHF: likely acute on chronic diastolic secondary to SUNSHINE - continue Lasix 60mg IV daily (increased on 11/20); clinically improved, weight down, but still w/ rales. Repeat CXR today -Supplemental O2 -Telemetry -Echo tds with mildly reduced LV function, grossly nl RV -Daily weights and BMP to follow lytes and renal fxn 3. Thoracic aneurysm:previously stable -Moderate, 4.6cm. - not visualized on echo, technically difficult - outpatient follow up - continue metoprolol 4. HTN: - BP improving, monitor - cont metoprolol 5. Hypothyroidism: - manage per primary 6. Elevated D-dimer: -Nonspecific -On AC for AF -Can check LE duplex, low clinical suspicion for PE at this time -Would not subject her to dye load while in acute CHF
--- NOTE | 2018-11-22 09:24 | PN ---
Physical Exam: SUBJECTIVE: Patient seen and examined, breathing improved, no chest pain, palpitations, ambulating better with less symptoms. OBJECTIVE: Vital Signs Period Temp Pulse Resp BP Sys/Dorsey Pulse Ox Last 24 Hr 97.6 F-98.4 F 76-94 18-26 103-125/48-72 100-100 Intake & Output 11/19/18 11/20/18 11/21/18 11/22/18 23:59 23:59 23:59 23:59 Intake Total 845 960 700 100 Output Total 1650 1100 Balance -805 -140 700 100 Weight 160 lb 160 lb 157 lb 9 oz 154 lb 3.2 oz GENERAL: sitting in bed, mild use of accessory muscles, improved exam Neck: soft,supple, improved neck vein distension CVS:S1S2 irregular Chest: improved air entry, no rales or wheezing Abdomen: soft, improved distension, NT throughout Extremities: trace pedal edema Psych: pleasant, co-operative Laboratory Results - last 24 hr 11/21/18 11/21/18 11/21/18 05:35 21:05 21:05 WBC 9.7 RBC 4.23 Hgb 13.2 Hct 39.1 MCV 92.4 MCH 31.1 MCHC 33.7 RDW 15.1 Plt Count 247 MPV 8.4 Neutrophils % (Manual) 64.0 Band Neutrophils % 0.0 Lymphocytes % (Manual) 23.0 Monocytes % (Manual) 4 Eosinophils % (Manual) 5.0 H D Basophils % (Manual) 0.0 Myelocytes % (Man) 1 Promyelocytes % (Man) 0 Blast Cells % (Manual) 0 Metamyelocytes 0 D Hypochromia 0 Platelet Estimate Normal Polychromasia 0 Poikilocytosis 0 Anisocytosis 0 Microcytosis 0 Macrocytosis 0 PTT (Actin FS) 41.5 H Sodium Potassium Chloride Carbon Dioxide Anion Gap BUN Creatinine Est GFR (CKD-EPI)AfAm Est GFR (CKD-EPI)NonAf Random Glucose Calcium Phosphorus Magnesium Total Bilirubin AST ALT Alkaline Phosphatase Total Protein Albumin 11/22/18 11/22/18 11/22/18 05:50 05:50 05:50 WBC 9.1 RBC 4.28 Hgb 13.3 Hct 39.3 MCV 92.0 MCH 31.0 MCHC 33.7 RDW 15.2 Plt Count 244 MPV 8.7 Neutrophils % (Manual) Band Neutrophils % Lymphocytes % (Manual) Monocytes % (Manual) Eosinophils % (Manual) Basophils % (Manual) Myelocytes % (Man) Promyelocytes % (Man) Blast Cells % (Manual) Metamyelocytes Hypochromia Platelet Estimate Polychromasia Poikilocytosis Anisocytosis Microcytosis Macrocytosis PTT (Actin FS) 30.7 Sodium 140 Potassium 3.8 Chloride 101 Carbon Dioxide 33 H Anion Gap 6 L BUN 33.8 H Creatinine 1.5 H Est GFR (CKD-EPI)AfAm 36.18 Est GFR (CKD-EPI)NonAf 31.22 Random Glucose 93 Calcium 9.5 Phosphorus 3.4 Magnesium 2.1 Total Bilirubin 0.3 AST 15 ALT 19 Alkaline Phosphatase 47 Total Protein 6.6 Albumin 2.8 L Active Medications Generic Name Dose Route Start Last Admin Trade Name Freq PRN Reason Stop Dose Admin Apixaban 2.5 mg 11/20/18 10:00 11/21/18 21:04 Eliquis - PO 2.5 mg BID [facility] Administration Emollient Ointment 1 applic 11/21/18 22:00 11/21/18 21:05 Aquaphor - TP 1 applic BID [facility] Administration Furosemide 60 mg 11/20/18 10:00 11/21/18 09:02 Lasix Injection - IVPUSH 60 mg DAILY [facility] Administration Levothyroxine Sodium 112 mcg 11/22/18 07:00 11/22/18 06:14 Synthroid - PO 112 mcg DAILY@0700 [facility] Administration Metoprolol Succinate 50 mg 11/22/18 10:00 Toprol Xl - PO DAILY [facility] Metoprolol Tartrate 5 mg 11/21/18 19:10 Lopressor Injection - IVPUSH Q4H PRN TACHYCARDIA 88F HTN, HLD, Raynaud's disease, Anxiety, mild to moderate ascending aortic aneurysm (4.[address] 2014, stable), Hypothyroid, recent negative temporal artery bx on steroids, admitted with New onset CHF/tachycardia -Acute hypoxic respiratory failure -Acute systolic heart failure exacerbation, ?prednisone mediated -Atrial flutter/Fib with RVR -ELIEL , suspect cardiorenal -Elevated troponin, suspect demand type II NSTEMI from above rather than ACS. -HTN -HLD -Raynaud's disease -Anxiety -Mild to moderate Ascending aortic aneurysm (4.[address] in 2014) -Hypothyroidism -Recent negative temporal artery biopsy Plan: PAF, HR 80s-90s. Continue metoprolol 25 mg PO q6h. Off diltiazem/amiodarone/heparin drip. Eliquis renal dosing. Lasix increased 60 mg IV dailly. cr rising, monitor for now, transition to PO In 24 hours. Bipap prn. Thyroid panel noted, patient with h/o thyrotoxicosis s/p PETERSON, now on supplementation. Endocrine input noted, levothyroxine 112 mcg daily, follow up dialysis T4. Renal function unchanged. DVTPPX eliquis PT eval noted. Home oxygen needs prior to dc. Plan for dc in 24-48 hours if continues to improve. Discussed with patient in detail, all questions answered. Visit type - Emergency Visit Emergency Visit: Yes ED Registration Date: 11/17/18 Care time: The patient presented to the Emergency Department on the above date and was hospitalized for further evaluation of their emergent condition. - New Patient This patient is new to me today: No - Critical Care Critical Care patient: No - Discharge Referral Referred to [facility] Med P.C.: No
[2018-11-22] MEDS ORDERED: PT OWN MED DRAWER 7, Y5N ONE (09:45)
[2018-11-22] MEDS: FUROSEMIDE 40 MG/4 ML INJECTABLE VIAL IVPUSH SCH (09:57)
[2018-11-22] MEDS: APIXABAN 2.5 MG TABLET PO SCH ×2 (09:57→21:14)
[2018-11-22] MEDS: MINERAL OIL/PET HY-PHL TOPICAL OINTMENT 454 GM JAR TP SCH ×2 (09:58→21:15)
--- NOTE | 2018-11-22 10:02 | PN ---
Progress Note (short form) - Note Progress Note: Resting in NAD. Breathing continues to improve. Still with some pruritus. Intake & Output 11/19/18 11/20/18 11/21/18 11/22/18 23:59 23:59 23:59 23:59 Intake Total 845 960 700 100 Output Total 1650 1100 Balance -805 -140 700 100 Weight 160 lb 160 lb 157 lb 9 oz 154 lb 3.2 oz Last Vital Signs Temp Pulse Resp BP Pulse Ox 98 F 80 18 113/58 L 100 11/22/18 07:38 11/22/18 07:38 11/22/18 07:38 11/22/18 07:38 11/21/18 21:00 Active Medications Apixaban (Eliquis -) 2.5 mg PO BID [facility] Last Admin: 11/22/18 09:57 Dose: 2.5 mg Emollient Ointment (Aquaphor -) 1 applic TP BID [facility] Last Admin: 11/22/18 09:58 Dose: 1 applic Furosemide (Lasix Injection -) 60 mg IVPUSH DAILY [facility] Last Admin: 11/22/18 09:57 Dose: 60 mg Levothyroxine Sodium (Synthroid -) 112 mcg PO DAILY@0700 [facility] Last Admin: 11/22/18 06:14 Dose: 112 mcg Metoprolol Succinate (Toprol Xl -) 50 mg PO DAILY [facility] Last Admin: 11/22/18 09:57 Dose: 50 mg Metoprolol Tartrate (Lopressor Injection -) 5 mg IVPUSH Q4H PRN PRN Reason: TACHYCARDIA Gen: Awake and alert, NAD Heart: irregular Lung: bibasilar rales Abd: soft, nontender Ext: no edema Laboratory Results - last 24 hr 11/21/18 11/21/18 11/21/18 05:35 21:05 21:05 WBC 9.7 RBC 4.23 Hgb 13.2 Hct 39.1 MCV 92.4 MCH 31.1 MCHC 33.7 RDW 15.1 Plt Count 247 MPV 8.4 Neutrophils % (Manual) 64.0 Band Neutrophils % 0.0 Lymphocytes % (Manual) 23.0 Monocytes % (Manual) 4 Eosinophils % (Manual) 5.0 H D Basophils % (Manual) 0.0 Myelocytes % (Man) 1 Promyelocytes % (Man) 0 Blast Cells % (Manual) 0 Metamyelocytes 0 D Hypochromia 0 Platelet Estimate Normal Polychromasia 0 Poikilocytosis 0 Anisocytosis 0 Microcytosis 0 Macrocytosis 0 PTT (Actin FS) 41.5 H Sodium Potassium Chloride Carbon Dioxide Anion Gap BUN Creatinine Est GFR (CKD-EPI)AfAm Est GFR (CKD-EPI)NonAf Random Glucose Calcium Phosphorus Magnesium Total Bilirubin AST ALT Alkaline Phosphatase Total Protein Albumin 11/22/18 11/22/18 11/22/18 05:50 05:50 05:50 WBC 9.1 RBC 4.28 Hgb 13.3 Hct 39.3 MCV 92.0 MCH 31.0 MCHC 33.7 RDW 15.2 Plt Count 244 MPV 8.7 Neutrophils % (Manual) Band Neutrophils % Lymphocytes % (Manual) Monocytes % (Manual) Eosinophils % (Manual) Basophils % (Manual) Myelocytes % (Man) Promyelocytes % (Man) Blast Cells % (Manual) Metamyelocytes Hypochromia Platelet Estimate Polychromasia Poikilocytosis Anisocytosis Microcytosis Macrocytosis PTT (Actin FS) 30.7 Sodium 140 Potassium 3.8 Chloride 101 Carbon Dioxide 33 H Anion Gap 6 L BUN 33.8 H Creatinine 1.5 H Est GFR (CKD-EPI)AfAm 36.18 Est GFR (CKD-EPI)NonAf 31.22 Random Glucose 93 Calcium 9.5 Phosphorus 3.4 Magnesium 2.1 Total Bilirubin 0.3 AST 15 ALT 19 Alkaline Phosphatase 47 Total Protein 6.6 Albumin 2.8 L ASSESSMENT AND PLAN: Atrial Fibrillation with RVR now in sinus Acute Systolic Heart Failure +Troponins likely Demand Ischemia Acute Kidney Injury HTN Hyperlipidemia Anxiety Hypothyroidism - rate/rhythm control per cardiology - continue anticoagulation - O2 to keep SpO2 >90% - Lasix - monitor urine output, creatinine - Cardiac telemetry monitoring Dr Peres
[2018-11-22] MEDS: ACETAMINOPHEN 325 MG TABLET (FP) PO PRN ×2 (16:41→22:39)
[2018-11-23] MEDS: LEVOTHYROXINE NA 112 MCG TABLET (FP) PO SCH (06:10)
[2018-11-23 06:45] LABS: BLOOD UREA NITROGEN 37.7 mg/dL (7-18); CALCIUM 9.3 mg/dL (8.5-10.1); CREATININE 1.6 mg/dL (0.55-1.3); POTASSIUM 3.4 mmol/L (3.5-5.1)
--- NOTE | 2018-11-23 07:29 | PN ---
Physical Exam: SUBJECTIVE: Patient seen and examined. Feels better today, rate controlled, in SR on tele. No chest pain. Waiting for pre and post test OBJECTIVE: Vital Signs Period Temp Pulse Resp BP Sys/Dorsey Pulse Ox Last 24 Hr 97.8 F-98.2 F 80-92 16-18 113-135/58-69 Vital Signs Temp 97.9 F 11/23/18 08:00 Pulse 80 11/23/18 12:00 Resp 20 11/23/18 12:00 BP 102/80 11/23/18 12:00 Pulse Ox 90 L 11/23/18 11:12 Intake & Output 11/22/18 11/23/18 11/23/18 23:59 11:59 23:59 Intake Total 300 50 150 Balance 300 50 150 Weight 70.449 kg Intake: Oral 300 50 150 Other: Voiding Method Toilet Toilet # Unmeasured Voids Void 1 1 3 Bowel Movement Yes Yes # Bowel Movements 1 1 Body Mass Index (BMI) 29.2 Weight Measurement Method Built in [facility] GENERAL: The patient is awake, alert, and fully oriented, in no acute distress sitting out in chair. ENT: moist mucous membranes. NECK: supple. LUNGS: Breath sounds equal, clear to auscultation bilaterally, no wheezes, no crackles HEART: Regular rate and rhythm, S1, S2 without murmur ABDOMEN: Soft, nontender, obese, normoactive bowel sounds EXTREMITIES: 2+ pulses, warm, well-perfused, no edema. NEUROLOGICAL: Cranial nerves II through XII grossly intact. No facial droop. Normal speech, gait not observed. PSYCH: Normal mood, normal affect. CBC, BMP 11/22/18 05:50 11/23/18 05:30 Laboratory Results - last 24 hr 11/22/18 11/23/18 11/23/18 05:50 05:30 05:30 PTT (Actin FS) 30.7 31.8 Sodium 141 Potassium 3.4 L Chloride 101 Carbon Dioxide 32 Anion Gap 7 L BUN 37.7 H Creatinine 1.6 H Est GFR (CKD-EPI)AfAm 33.47 Est GFR (CKD-EPI)NonAf 28.88 Random Glucose 96 Calcium 9.3 Magnesium 2.0 Active Medications Generic Name Dose Route Start Last Admin Trade Name Freq PRN Reason Stop Dose Admin Acetaminophen 650 mg 11/22/18 16:33 11/22/18 22:39 Tylenol - PO 650 mg Q6H PRN Administration HEADACHE Apixaban 2.5 mg 11/20/18 10:00 11/22/18 21:14 Eliquis - PO 2.5 mg BID ITZ Administration Emollient Ointment 1 applic 11/21/18 22:00 11/22/18 21:15 Aquaphor - TP 1 applic BID ITZ Administration Furosemide 40 mg 11/23/18 10:00 Lasix - PO DAILY ITZ Levothyroxine Sodium 112 mcg 11/22/18 07:00 11/23/18 06:10 Synthroid - PO 112 mcg DAILY@0700 ITZ Administration Metoprolol Succinate 50 mg 11/22/18 10:00 11/22/18 09:57 Toprol Xl - PO 50 mg DAILY [facility] Administration Metoprolol Tartrate 5 mg 11/21/18 19:10 Lopressor Injection - IVPUSH Q4H PRN TACHYCARDIA Ambulatory Orders Butalb/Acetaminophen/Caffeine [Fioricet 50-325-40 mg Tablet] 40 mg PO PRN Levothyroxine [Synthroid -] 125 mcg PO DAILY 05/05/11 Pravastatin Sodium [Pravachol -] 20 mg PO DAILY 05/05/11 Alprazolam [Xanax] 0.25 mg PO TID 11/17/18 Omeprazole 20 mg PO DAILY 11/18/18 Apixaban [Eliquis -] 2.5 mg PO BID 30 Days #60 tablet 11/23/18 Furosemide [Lasix -] 40 mg PO DAILY 30 Days #30 tablet 11/23/18 Metoprolol Succinate [Toprol XL -] 50 mg PO DAILY 30 Days tab.sr.24h 11/23/18 Current Medications Acetaminophen (Tylenol -) 650 mg PO Q6H PRN PRN Reason: HEADACHE Last Admin: 11/22/18 22:39 Dose: 650 mg Apixaban (Eliquis -) 2.5 mg PO BID [facility] Last Admin: 11/23/18 09:08 Dose: 2.5 mg Emollient Ointment (Aquaphor -) 1 applic TP BID [facility] Last Admin: 11/23/18 09:08 Dose: 1 applic Furosemide (Lasix -) 40 mg PO DAILY [facility] Last Admin: 11/23/18 09:08 Dose: 40 mg Levothyroxine Sodium (Synthroid -) 112 mcg PO DAILY@0700 [facility] Last Admin: 11/23/18 06:10 Dose: 112 mcg Metoprolol Succinate (Toprol Xl -) 50 mg PO BID [facility] Metoprolol Tartrate (Lopressor Injection -) 5 mg IVPUSH Q4H PRN PRN Reason: TACHYCARDIA ASSESSMENT/PLAN: Pt is an 88 yo F with PMHx of HTN, Hypothyroidism, anxiety, carpal tunnel syndrome, lumbosacral radiculopathy, osteoporosis,proteinuria, chronic renal insuff, overactive bladder,GERD, PACs/PVCs, PAD, Raynaud's, thoracic aneurysm without rupture, thyrotoxicosis s/p PETERSON, varicose veins, artherosclerotic carotid a, MR, HLD,SVT, headaches relieved with fiorecet, presenting from home for shortness of breath started about 4 weeks ago, worsened over 2days with inability to get out of bed day of presentation, admitted for rapid afib/flutter /SVT. #Aflutter w/RVR- Pt appears to have a hx of SVT on metoprolol and dilt at home, received adenosine, digoxin, iv dilt, amio, dit drip, Was titrated off dilt drip and cont amio, Transitioned off amio drip to metoprolol -per cards Now on toprol XL heparin drip stopped now on eliquis [id number] #Pulm edema Improving cont diuresis, now on PO lasix 40mg daily #HTN- metoprolol, 25mg Q6H changed to Toprol XL 50mg daily dilt drip stopped per cards Cont lasix PO #Hypothyroidism- Cont levothyroxine , Hx of thyrotoxicosis, s/p RAIU then levothyroxine, TSH and T4 elevated, Dr Oneil on board, thinks T4 elevated due to calibration, FT4 pending, #HLD- Holding pravastatin #SVT- mixed rhythms including SVT noted this admission, cont rate control, AC, and off amio, pt in sinus #elevated trops- likely demand in setting of tachycardia Now resolved anxiety- xanax, last filled May 2018, for 0.5mg tid - Tachypnea- due to increased work with tachycardia, Bipap as needed Pt on NC Pre and post headaches- last floricet prescription July 16, not picked up Negative biopsy for temporal arteritis Recent high steroid use carpal tunnel syndrome, lumbosacral radiculopathy, osteoporosis, proteinuria, chronic renal insuff, overactive bladder, GERD, PACs/PVCs, PAD, Raynaud's, thoracic aneurysm without rupture, thyrotoxicosis s/p PETERSON, varicose veins, artherosclerotic carotid a, MR, SVT, Pending dc home tomorrow Visit type - Emergency Visit Emergency Visit: Yes ED Registration Date: 11/17/18 Care time: The patient presented to the Emergency Department on the above date and was hospitalized for further evaluation of their emergent condition. - New Patient This patient is new to me today: No - Critical Care Critical Care patient: No - Discharge Referral Referred to [facility] No ATTENDING PHYSICIAN STATEMENT I saw and evaluated the patient. I reviewed the resident's note and discussed the case with the resident. I agree with the resident's findings and plan as documented. SUBJECTIVE: OBJECTIVE: ASSESSMENT AND PLAN:
[2018-11-23] MEDS ORDERED: POTASSIUM CHLORIDE ORAL LIQUID 20 MEQ/15 ML PO ONE (07:33)
[2018-11-23] MEDS: FUROSEMIDE 40 MG TABLET (FP) PO SCH (09:08)
[2018-11-23] MEDS: APIXABAN 2.5 MG TABLET PO SCH ×2 (09:08→21:39)
[2018-11-23] MEDS: MINERAL OIL/PET HY-PHL TOPICAL OINTMENT 454 GM JAR TP SCH ×2 (09:08→21:39)
--- NOTE | 2018-11-23 09:23 | PN ---
Progress Note, Physician Chief Complaint: sob History of Present Illness: breathing feels "not good"--when walks in young assisted. no wheezing, denies h/o asthma or copd no cp no leg swelling no palp - Current Medication List Current Medications: Active Medications Acetaminophen (Tylenol -) 650 mg PO Q6H PRN PRN Reason: HEADACHE Last Admin: 11/22/18 22:39 Dose: 650 mg Apixaban (Eliquis -) 2.5 mg PO BID [facility] Last Admin: 11/23/18 09:08 Dose: 2.5 mg Emollient Ointment (Aquaphor -) 1 applic TP BID [facility] Last Admin: 11/23/18 09:08 Dose: 1 applic Furosemide (Lasix -) 40 mg PO DAILY [facility] Last Admin: 11/23/18 09:08 Dose: 40 mg Levothyroxine Sodium (Synthroid -) 112 mcg PO DAILY@0700 [facility] Last Admin: 11/23/18 06:10 Dose: 112 mcg Metoprolol Succinate (Toprol Xl -) 50 mg PO DAILY [facility] Last Admin: 11/23/18 09:08 Dose: 50 mg Metoprolol Tartrate (Lopressor Injection -) 5 mg IVPUSH Q4H PRN PRN Reason: TACHYCARDIA - Objective Vital Signs: Vital Signs Temperature 97.9 F 11/23/18 08:00 Pulse Rate 79 11/23/18 08:00 Respiratory Rate 21 H 11/23/18 08:00 Blood Pressure 136/72 11/23/18 08:00 O2 Sat by Pulse Oximetry (%) 100 11/21/18 21:00 Constitutional: Yes: Well Nourished, No Distress, Calm Cardiovascular: Yes: Regular Rate and Rhythm, S1, S2. No: JVD (in chair), Gallop, Murmur Respiratory: Yes: Regular, Rales (bases). No: Accessory Muscle Use, Wheezes Extremities: No: Cold Edema: No Neurological: Yes: Alert, Oriented Psychiatric: No: Agitated Labs: CBC, BMP 11/22/18 05:50 11/23/18 05:30 INR, PTT INR 1.00 (0.83-1.09) 11/17/18 10:26 Assessment/Plan tele: NSR for past 24 hrs IMP: 1. PAF w/ RVR. 2. Acute on chronic diastolic CHF, in setting of #1. Echo tds with mildly reduced LV function, grossly nl RV, normal valve fxn, no PH noted 3. History of ascending aortic aneursym, 4.6 cm 4. Hypothyroidism 5. Chronic hypertension--controlled 6. Elevated D-dimer--nonspecific. on AC for AF regardless. PE not suspected clinically. REC: - cont Eliquis 2.5 bid--if creatinine settles out at <1.5, the dose should be increased to 5 bid (outpt f/u) - metopr titrated up, converted to XL dosing 11/22 (50 qd). remains in sinus on tele x 24 hrs--continue regimen - cxr improved significantly, bun/creat up slightly further, on lasix 40 qd. appears euvolemic. however she continues to report sob with activity, etiology unclear. continue lasix 40 qd--will need close monitoring of renal fxn on this as inpt/outpt - check O2 sat with ambulation - outpt surveillance of aorta size
--- NOTE | 2018-11-23 11:10 | PN ---
Teaching Attending Note Name of Resident: Anusha Pina ATTENDING PHYSICIAN STATEMENT I saw and evaluated the patient. I reviewed the resident's note and discussed the case with the resident. I agree with the resident's findings and plan as documented with exceptions below. SUBJECTIVE: OBJECTIVE: Vital Signs Period Temp Pulse Resp BP Sys/Dorsye Pulse Ox Last 24 Hr 97.8 F-98.2 F 79-92 16-21 114-136/59-72 Intake & Output 11/20/18 11/21/18 11/22/18 11/23/18 23:59 23:59 23:59 23:59 Intake Total 960 700 400 50 Output Total 1100 Balance -140 700 400 50 Weight 160 lb 157 lb 9 oz 154 lb 3.2 oz 155 lb 5 oz General: sitting in bed in no acute distress, able to Neck: improved neck vein distension Chest: bibasilar fine rales, good air entry Abdomen:Soft, obese, NT Extremities: Trace pedal edema Home Medications Medication Instructions Recorded Butalb/Acetaminophen/Caffeine 40 mg PO PRN 05/05/11 [Fioricet 50-325-40 mg Tablet] Levothyroxine [Synthroid -] 125 mcg PO DAILY 05/05/11 Pravastatin Sodium [Pravachol -] 20 mg PO DAILY 05/05/11 Alprazolam [Xanax] 0.25 mg PO TID 11/17/18 Omeprazole 20 mg PO DAILY 11/18/18 Apixaban [Eliquis -] 2.5 mg PO BID 30 Days #60 tablet 11/23/18 Furosemide [Lasix -] 40 mg PO DAILY 30 Days #30 tablet 11/23/18 Metoprolol Succinate [Toprol XL -] 50 mg PO DAILY 30 Days tab.sr.24h 11/23/18 Active Medications Acetaminophen (Tylenol -) 650 mg PO Q6H PRN PRN Reason: HEADACHE Last Admin: 11/22/18 22:39 Dose: 650 mg Apixaban (Eliquis -) 2.5 mg PO BID [facility] Last Admin: 11/23/18 09:08 Dose: 2.5 mg Emollient Ointment (Aquaphor -) 1 applic TP BID [facility] Last Admin: 11/23/18 09:08 Dose: 1 applic Furosemide (Lasix -) 40 mg PO DAILY [facility] Last Admin: 07/22/19 09:08 Dose: 40 mg Levothyroxine Sodium (Synthroid -) 112 mcg PO DAILY@0700 [facility] Last Admin: 11/23/18 06:10 Dose: 112 mcg Metoprolol Succinate (Toprol Xl -) 50 mg PO DAILY [facility] Last Admin: 11/23/18 09:08 Dose: 50 mg Metoprolol Tartrate (Lopressor Injection -) 5 mg IVPUSH Q4H PRN PRN Reason: TACHYCARDIA Laboratory Results - last 24 hr 11/23/18 11/23/18 05:30 05:30 PTT (Actin FS) 31.8 Sodium 141 Potassium 3.4 L Chloride 101 Carbon Dioxide 32 Anion Gap 7 L BUN 37.7 H Creatinine 1.6 H Est GFR (CKD-EPI)AfAm 33.47 Est GFR (CKD-EPI)NonAf 28.88 Random Glucose 96 Calcium 9.3 Magnesium 2.0 ASSESSMENT AND PLAN: 88F HTN, HLD, Raynaud's disease, Anxiety, mild to moderate ascending aortic aneurysm (4.[address] 2014, stable), Hypothyroid, recent negative temporal artery bx on steroids, admitted with New onset CHF/tachycardia -Acute hypoxic respiratory failure -Acute systolic heart failure exacerbation, ?prednisone mediated -Atrial flutter/Fib with RVR -ELIEL , suspect cardiorenal -Elevated troponin, suspect demand type II NSTEMI from above rather than ACS. -Hypokalemia -HTN -HLD -Raynaud's disease -Anxiety -Mild to moderate Ascending aortic aneurysm (4.[address] in 2014) -Hypothyroidism -Recent negative temporal artery biopsy Plan: HR improved, Change to XL. Will titrate to 50 mg BID. Cardiology input noted. Lasix 40 mg daily. Monitor renal function. Off diltiazem/amiodarone/heparin drip. Eliquis renal dosing. Thyroid panel noted, patient with h/o thyrotoxicosis s/p PETERSON, now on supplementation. Endocrine input noted, levothyroxine 112 mcg daily, follow up dialysis T4. replete K. DVTPPX eliquis PT eval noted. Ambulatory oxygen noted. Plan for dc home with services in 24 hours if continues to improve and no concerns. Discussed with patient in detail, all questions answered.
--- NOTE | 2018-11-23 11:15 | PN ---
Progress Note (short form) - Note Progress Note: Overall improving but still with LOTT. No CP. No acute events overnight. Intake & Output 11/20/18 11/21/18 11/22/18 11/23/18 23:59 23:59 23:59 23:59 Intake Total 960 700 400 50 Output Total 1100 Balance -140 700 400 50 Weight 160 lb 157 lb 9 oz 154 lb 3.2 oz 155 lb 5 oz Last Vital Signs Temp Pulse Resp BP Pulse Ox 97.9 F 96 H 21 H 136/72 90 L 11/23/18 08:00 11/23/18 11:12 11/23/18 09:00 11/23/18 08:00 11/23/18 11:12 Active Medications Acetaminophen (Tylenol -) 650 mg PO Q6H PRN PRN Reason: HEADACHE Last Admin: 11/22/18 22:39 Dose: 650 mg Apixaban (Eliquis -) 2.5 mg PO BID [facility] Last Admin: 11/23/18 09:08 Dose: 2.5 mg Emollient Ointment (Aquaphor -) 1 applic TP BID [facility] Last Admin: 11/23/18 09:08 Dose: 1 applic Furosemide (Lasix -) 40 mg PO DAILY [facility] Last Admin: 11/23/18 09:08 Dose: 40 mg Levothyroxine Sodium (Synthroid -) 112 mcg PO DAILY@0700 [facility] Last Admin: 11/23/18 06:10 Dose: 112 mcg Metoprolol Succinate (Toprol Xl -) 50 mg PO DAILY [facility] Last Admin: 11/23/18 09:08 Dose: 50 mg Metoprolol Tartrate (Lopressor Injection -) 5 mg IVPUSH Q4H PRN PRN Reason: TACHYCARDIA Gen: Awake and alert, NAD Heart: irregular Lung: bibasilar rales Abd: soft, nontender Ext: no edema Laboratory Results - last 24 hr 11/23/18 11/23/18 05:30 05:30 PTT (Actin FS) 31.8 Sodium 141 Potassium 3.4 L Chloride 101 Carbon Dioxide 32 Anion Gap 7 L BUN 37.7 H Creatinine 1.6 H Est GFR (CKD-EPI)AfAm 33.47 Est GFR (CKD-EPI)NonAf 28.88 Random Glucose 96 Calcium 9.3 Magnesium 2.0 ASSESSMENT AND PLAN: Atrial Fibrillation with RVR now in sinus Acute Systolic Heart Failure +Troponins likely Demand Ischemia Acute Kidney Injury HTN Hyperlipidemia Anxiety Hypothyroidism - rate/rhythm control per cardiology - continue anticoagulation - O2 to keep SpO2 >90% - Lasix - monitor urine output, creatinine - Cardiac telemetry monitoring Dr Peres
[2018-11-23 13:23] VITALS: BMI 29.2
[2018-11-23] MEDS ORDERED: POTASSIUM CHLORIDE TABS 20 MEQ TABLET.ER (FP) PO ONE (14:00)
[2018-11-23 22:09] LABS: HEMATOCRIT 39.1 % (32.4-45.2); HEMOGLOBIN 13.1 GM/dL (10.7-15.3); MCHC 33.5 g/dl (32.0-36.0); MEAN CELL VOLUME 92.8 fl (80-96); MEAN PLT VOLUME 8.6 fl (7.5-11.1); PLATELET COUNT 280 K/MM3 (134-434); RBC 4.21 M/mm3 (3.60-5.2); RDW 15.6 % (11.6-15.6); WHITE BLOOD COUNT 9.6 K/mm3 (4.0-10.0)
[2018-11-24] MEDS: LEVOTHYROXINE NA 112 MCG TABLET (FP) PO SCH (06:23)
[2018-11-24 06:48] LABS: BASO % 0.8 % (0-2.0); EOS % 4.2 % (0-4.5); HEMATOCRIT 39.6 % (32.4-45.2); HEMOGLOBIN 13.5 GM/dL (10.7-15.3); LYMPH % 24.4 % (8-40); MCH 31.8 pg (25.7-33.7); MCHC 34.1 g/dl (32.0-36.0); MEAN CELL VOLUME 93.2 fl (80-96); MEAN PLT VOLUME 8.3 fl (7.5-11.1); MONO % 9.9 % (3.8-10.2); NEUT % 60.7 % (42.8-82.8); PLATELET COUNT 267 K/MM3 (134-434); RBC 4.25 M/mm3 (3.60-5.2); RDW 15.3 % (11.6-15.6); WHITE BLOOD COUNT 8.6 K/mm3 (4.0-10.0)
[2018-11-24 06:57] LABS: ALBUMIN 2.9 g/dl (3.4-5.0); BILIRUBIN,TOTAL 0.3 mg/dL (0.2-1); BLOOD UREA NITROGEN 42.6 mg/dL (7-18); CALCIUM 9.4 mg/dL (8.5-10.1); CREATININE 1.4 mg/dL (0.55-1.3); MAGNESIUM 2.1 mg/dL (1.8-2.4); PHOSPHOROUS 3.5 mg/dL (2.5-4.9); POTASSIUM 3.8 mmol/L (3.5-5.1); TOT PROT 6.9 g/dl (6.4-8.2)
--- NOTE | 2018-11-24 09:51 | DS ---
Physical Exam: SUBJECTIVE: Patient seen and examined. Heart rate controlled overnight. Pt said to ambulate off oxygen overnight without tachycardia or shortness of breath. Feels better, wants to go home. Tel SR with some pvcs. OBJECTIVE: Vital Signs Period Temp Pulse Resp BP Sys/Dorsey Pulse Ox Last 24 Hr 97.6 F-98.1 F 80-96 19-24 100-129/43-80 90-97 Vital Signs Temp 97.8 F 11/24/18 06:00 Pulse 83 11/24/18 06:00 Resp 22 H 11/24/18 06:00 BP 104/54 L 11/24/18 06:00 Pulse Ox 95 11/24/18 08:41 Intake & Output 11/23/18 11/23/18 11/24/18 11:59 23:59 11:59 Intake Total 50 200 50 Balance 50 200 50 Weight 70.449 kg 69.649 kg Intake: Oral 50 200 50 Other: Voiding Method Toilet Toilet Toilet # Unmeasured Voids Void 1 1 2 Bowel Movement No No # Bowel Movements 1 Body Mass Index (BMI) 29.2 Weight Measurement Method [facility] Built in [facility] PHYSICAL EXAM GENERAL: The patient is awake, alert, and fully oriented, in no acute distress. ENT: moist mucous membranes. NECK: supple. LUNGS: Breath sounds equal, clear to auscultation bilaterally, no wheezes, no crackles HEART: Regular rate and rhythm, S1, S2 ABDOMEN: Soft, nontender, obese, normoactive bowel sounds, no guarding, no rebound EXTREMITIES: 2+ pulses, warm, well-perfused, no edema. NEUROLOGICAL: Cranial nerves II through XII grossly intact. Normal speech, gait not observed. CBC, BMP 11/24/18 05:40 11/24/18 05:40 LABS Laboratory Results - last 24 hr 11/23/18 11/23/18 11/24/18 21:30 21:30 05:40 WBC 9.6 8.6 RBC 4.21 4.25 Hgb 13.1 13.5 Hct 39.1 39.6 MCV 92.8 93.2 MCH 31.0 31.8 MCHC 33.5 34.1 RDW 15.6 15.3 Plt Count 280 267 MPV 8.6 8.3 Absolute Neuts (auto) 5.2 Neutrophils % 60.7 Lymphocytes % 24.4 Monocytes % 9.9 Eosinophils % 4.2 Basophils % 0.8 Nucleated RBC % 0 PTT (Actin FS) 33.2 Sodium Potassium Chloride Carbon Dioxide Anion Gap BUN Creatinine Est GFR (CKD-EPI)AfAm Est GFR (CKD-EPI)NonAf Random Glucose Calcium Phosphorus Magnesium Total Bilirubin AST ALT Alkaline Phosphatase Total Protein Albumin 11/24/18 05:40 WBC RBC Hgb Hct MCV MCH MCHC RDW Plt Count MPV Absolute Neuts (auto) Neutrophils % Lymphocytes % Monocytes % Eosinophils % Basophils % Nucleated RBC % PTT (Actin FS) Sodium 142 Potassium 3.8 Chloride 103 Carbon Dioxide 31 Anion Gap 8 BUN 42.6 H Creatinine 1.4 H Est GFR (CKD-EPI)AfAm 39.33 Est GFR (CKD-EPI)NonAf 33.94 Random Glucose 96 Calcium 9.4 Phosphorus 3.5 Magnesium 2.1 Total Bilirubin 0.3 AST 11 L ALT 20 Alkaline Phosphatase 47 Total Protein 6.9 Albumin 2.9 L Current Medications Acetaminophen (Tylenol -) 650 mg PO Q6H PRN PRN Reason: HEADACHE Last Admin: 11/22/18 22:39 Dose: 650 mg Apixaban (Eliquis -) 2.5 mg PO BID [facility] Last Admin: 11/23/18 21:39 Dose: 2.5 mg Emollient Ointment (Aquaphor -) 1 applic TP BID [facility] Last Admin: 11/23/18 21:39 Dose: 1 applic Furosemide (Lasix -) 40 mg PO DAILY [facility] Last Admin: 11/23/18 09:08 Dose: 40 mg Levothyroxine Sodium (Synthroid -) 112 mcg PO DAILY@0700 [facility] Last Admin: 11/24/18 06:23 Dose: 112 mcg Metoprolol Succinate (Toprol Xl -) 50 mg PO BID [facility] Last Admin: 11/23/18 21:39 Dose: 50 mg Metoprolol Tartrate (Lopressor Injection -) 5 mg IVPUSH Q4H PRN PRN Reason: TACHYCARDIA Ambulatory Orders Butalb/Acetaminophen/Caffeine [Fioricet 50-325-40 mg Tablet] 40 mg PO PRN Pravastatin Sodium [Pravachol -] 20 mg PO DAILY 05/05/11 Alprazolam [Xanax] 0.25 mg PO TID 11/17/18 Omeprazole 20 mg PO DAILY 11/18/18 Apixaban [Eliquis -] 2.5 mg PO BID #60 tablet 11/24/18 Furosemide [Lasix] 40 mg PO DAILY #30 tablet 11/24/18 Levothyroxine [Synthroid -] 112 mcg PO DAILY@0700 #30 tablet 11/24/18 Metoprolol Succinate [Toprol XL -] 50 mg PO BID #60 tab.sr.24h 11/24/18 HOSPITAL COURSE: Date of Admission:11/17/18 Date of Discharge: 11/24/18 Pt is an 88 yo F with PMHx of HTN, Hypothyroidism, anxiety, carpal tunnel syndrome, lumbosacral radiculopathy, osteoporosis,proteinuria, chronic renal insuff, overactive bladder,GERD, PACs/PVCs, PAD, Raynaud's, thoracic aneurysm without rupture, thyrotoxicosis s/p PETERSON, varicose veins, artherosclerotic carotid a, MR, HLD,SVT, headaches relieved with fiorecet, presenting from home for shortness of breath started about 4 weeks ago, worsened over 2days with inability to get out of bed day of presentation, admitted for rapid afib/flutter /SVT. Pt had recently completed a high dose of steroids for suspected temporal arteritis (negative biopsy). She was admitted in pulmonary edema with afib/ aflutter that required several medication adjustments for rate control. She benefitted initially from bipap and nasal cannular for tachypena. Diltiazem was discontinued, pt was started on Toprol XL 50mg bid and placed on eliquis 2.5mg bid, stabilization of her kidney function at Cr >1.5 ([id number]). She will continue diuresis on PO lasix. She was seen by Dr Oneil and her levothyroxine dose has been decreased to 112mcg. She ambulated well off supplemental oxygen and is being discharged home to follow up in a week for repeat BMP, mg, ph and medication adjustments (eliquis and lasix as needed). Minutes to complete discharge: 39 Discharge Summary Reason For Visit: ACUTE PULMONARY EDEMA Current Active Problems Acute pulmonary edema (Acute) Acute renal insufficiency (Acute) SVT (supraventricular tachycardia) (Acute) Condition: Improved - Instructions Diet, Activity, Other Instructions: You came in with fast heart rate and you were in heart failure Medication change Start: Lasix 40 mg daily Toprol XL 50 mg twice daily Eliquis 2.5 mg twice daily Levothyroxine 112 mcg daily Stop: Levothyroxine 125 mcg daily. Diltiazem Continue other medications as before. INSTRUCTIONS: You have an enlarged aorta that has to be evaluated as an outpatient (ascending aortic aneurysm, 4.6 cm) Weigh yourself daily, if you think you are gaining more than 3lbs in one day, call your primary care doctor for medication adjustments Reduce your salt intake, take 2g or less of salt daily Restrict your water intake to less than 1.5L a day You are started on a blood thinner and all your providers in the office and hospital need to be aware of the same. FOLLOW UP: Follow up with your primary care doctor for blood work-BMP to check your kidney function and your electrolytes since you are on a water pill Your blood thinner dose may be changed based on your kidney function Also thyroid function tests in 2 weeks with your doctor. 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 Referrals: Miller Lee MD [Staff Physician] - 1 Week Jonathan Baker MD [Primary Care Provider] - 1 Week Disposition: VNS/HOME HEALTH CARE - Home Medications Comprehensive Discharge Medication List: Ambulatory Orders Butalb/Acetaminophen/Caffeine [Fioricet 50-325-40 mg Tablet] 40 mg PO PRN Pravastatin Sodium [Pravachol -] 20 mg PO DAILY 05/05/11 Alprazolam [Xanax] 0.25 mg PO TID 11/17/18 Omeprazole 20 mg PO DAILY 11/18/18 Apixaban [Eliquis -] 2.5 mg PO BID #60 tablet 11/24/18 Furosemide [Lasix] 40 mg PO DAILY #30 tablet 11/24/18 Levothyroxine [Synthroid -] 112 mcg PO DAILY@0700 #30 tablet 11/24/18 Metoprolol Succinate [Toprol XL -] 50 mg PO BID #60 tab.sr.24h 11/24/18 This patient is new to me today: No Emergency Visit: Yes ED Registration Date: 11/17/18 Care time: The patient presented to the Emergency Department on the above date and was hospitalized for further evaluation of their emergent condition. Critical Care patient: No - Discharge Referral Referred to [facility] No ATTENDING PHYSICIAN STATEMENT I saw and evaluated the patient. I reviewed the resident's note and discussed the case with the resident. I agree with the resident's findings and plan as documented. SUBJECTIVE: OBJECTIVE: ASSESSMENT AND PLAN:
[2018-11-24] MEDS ORDERED: PT OWN MED DRAWER 7, Y5N ONE (09:55)
[2018-11-24] MEDS: APIXABAN 2.5 MG TABLET PO SCH (09:56)
[2018-11-24] MEDS: FUROSEMIDE 40 MG TABLET (FP) PO SCH (09:56)
[2018-11-24] MEDS: MINERAL OIL/PET HY-PHL TOPICAL OINTMENT 454 GM JAR TP SCH (10:01)
--- NOTE | 2018-11-24 10:09 | PN ---
Progress Note (short form) - Note Progress Note: s: feels well, wants to go home. no chest pain, palps, dizziness, dyspnea Current Medications Acetaminophen (Tylenol -) 650 mg PO Q6H PRN PRN Reason: HEADACHE Last Admin: 11/22/18 22:39 Dose: 650 mg Apixaban (Eliquis -) 2.5 mg PO BID [facility] Last Admin: 11/24/18 09:56 Dose: 2.5 mg Emollient Ointment (Aquaphor -) 1 applic TP BID [facility] Last Admin: 11/24/18 10:01 Dose: 1 applic Furosemide (Lasix -) 40 mg PO DAILY [facility] Last Admin: 11/24/18 09:56 Dose: 40 mg Levothyroxine Sodium (Synthroid -) 112 mcg PO DAILY@0700 [facility] Last Admin: 11/24/18 06:23 Dose: 112 mcg Metoprolol Succinate (Toprol Xl -) 50 mg PO BID [facility] Last Admin: 11/24/18 09:56 Dose: 50 mg Metoprolol Tartrate (Lopressor Injection -) 5 mg IVPUSH Q4H PRN PRN Reason: TACHYCARDIA Vital Signs Period Temp Pulse Resp BP Sys/Dorsey Pulse Ox Last 24 Hr 97.6 F-98.1 F 80-96 19-24 100-129/43-80 90-97 Constitutional: Yes: Well Nourished, No Distress, Calm Cardiovascular: Yes: Regular Rate and Rhythm, S1, S2. No: JVD (in chair), Gallop, Murmur Respiratory: Yes: Regular, Rales (bases). No: Accessory Muscle Use, Wheezes Extremities: No: Cold Edema: No Neurological: Yes: Alert, Oriented Psychiatric: No: Agitated no jaundice, diaphoresis Assessment/Plan tele: sinus IMP: 1. PAF w/ RVR. 2. Acute on chronic diastolic CHF, in setting of #1. Echo tds with mildly reduced LV function, grossly nl RV, normal valve fxn, no PH noted 3. History of ascending aortic aneursym, 4.6 cm 4. Hypothyroidism 5. Chronic hypertension--controlled 6. Elevated D-dimer--nonspecific. on AC for AF regardless. PE not suspected clinically. REC: - cont Eliquis 2.5 bid--if creatinine settles out at <1.5, the dose should be increased to 5 bid, repeat labs as outpatient - metopr titrated up, converted to XL dosing 11/22 (50 qd), continue. remains in sinus on tele - cxr improved significantly, bun/creat up slightly further, on lasix 40 qd. appears euvolemic. however she continues to report sob with activity, etiology unclear. continue lasix 40 qd--will need close monitoring of renal fxn on this as inpt/outpt - outpt surveillance of aorta size
[2018-11-24 10:13] VITALS: BP 115/69; PULSE 84
--- NOTE | 2018-11-24 11:10 | PN ---
Progress Note (short form) - Note Progress Note: Overall improved. LOTT resolving. No CP. No acute events overnight. Intake & Output 11/21/18 11/22/18 11/23/18 11/24/18 23:59 23:59 23:59 23:59 Intake Total 700 400 250 50 Balance 700 400 250 50 Weight 157 lb 9 oz 154 lb 3.2 oz 155 lb 5 oz 153 lb 8.796 oz Last Vital Signs Temp Pulse Resp BP Pulse Ox 97.8 F 84 20 115/69 95 11/24/18 06:00 11/24/18 10:00 11/24/18 10:00 11/24/18 10:00 11/24/18 08:41 Active Medications Acetaminophen (Tylenol -) 650 mg PO Q6H PRN PRN Reason: HEADACHE Last Admin: 11/22/18 22:39 Dose: 650 mg Apixaban (Eliquis -) 2.5 mg PO BID [facility] Last Admin: 11/24/18 09:56 Dose: 2.5 mg Emollient Ointment (Aquaphor -) 1 applic TP BID [facility] Last Admin: 11/24/18 10:01 Dose: 1 applic Furosemide (Lasix -) 40 mg PO DAILY [facility] Last Admin: 11/24/18 09:56 Dose: 40 mg Levothyroxine Sodium (Synthroid -) 112 mcg PO DAILY@0700 [facility] Last Admin: 11/24/18 06:23 Dose: 112 mcg Metoprolol Succinate (Toprol Xl -) 50 mg PO BID [facility] Last Admin: 11/24/18 09:56 Dose: 50 mg Metoprolol Tartrate (Lopressor Injection -) 5 mg IVPUSH Q4H PRN PRN Reason: TACHYCARDIA Gen: Awake and alert, NAD Heart: irregular Lung: bibasilar rales Abd: soft, nontender Ext: no edema Laboratory Results - last 24 hr 11/23/18 11/23/18 11/24/18 21:30 21:30 05:40 WBC 9.6 8.6 RBC 4.21 4.25 Hgb 13.1 13.5 Hct 39.1 39.6 MCV 92.8 93.2 MCH 31.0 31.8 MCHC 33.5 34.1 RDW 15.6 15.3 Plt Count 280 267 MPV 8.6 8.3 Absolute Neuts (auto) 5.2 Neutrophils % 60.7 Lymphocytes % 24.4 Monocytes % 9.9 Eosinophils % 4.2 Basophils % 0.8 Nucleated RBC % 0 PTT (Actin FS) 33.2 Sodium Potassium Chloride Carbon Dioxide Anion Gap BUN Creatinine Est GFR (CKD-EPI)AfAm Est GFR (CKD-EPI)NonAf Random Glucose Calcium Phosphorus Magnesium Total Bilirubin AST ALT Alkaline Phosphatase Total Protein Albumin 11/24/18 05:40 WBC RBC Hgb Hct MCV MCH MCHC RDW Plt Count MPV Absolute Neuts (auto) Neutrophils % Lymphocytes % Monocytes % Eosinophils % Basophils % Nucleated RBC % PTT (Actin FS) Sodium 142 Potassium 3.8 Chloride 103 Carbon Dioxide 31 Anion Gap 8 BUN 42.6 H Creatinine 1.4 H Est GFR (CKD-EPI)AfAm 39.33 Est GFR (CKD-EPI)NonAf 33.94 Random Glucose 96 Calcium 9.4 Phosphorus 3.5 Magnesium 2.1 Total Bilirubin 0.3 AST 11 L ALT 20 Alkaline Phosphatase 47 Total Protein 6.9 Albumin 2.9 L ASSESSMENT AND PLAN: Atrial Fibrillation with RVR now in sinus Acute Systolic Heart Failure +Troponins likely Demand Ischemia Acute Kidney Injury HTN Hyperlipidemia Anxiety Hypothyroidism - rate/rhythm control per cardiology - continue anticoagulation - O2 to keep SpO2 >90% - Lasix - monitor urine output, creatinine - D/C planning Dr Peres
[2018-11-24 11:19] VITALS: TEMP 97.4
[2018-11-24 11:44] LABS: ANISOCYTOSIS 0; MACROCYTOSIS 0; PLATELET ESTIMATE NORMAL
--- NOTE | 2018-11-24 12:19 | PN ---
Teaching Attending Note Name of Resident: Anusha Pina ATTENDING PHYSICIAN STATEMENT I saw and evaluated the patient. I reviewed the resident's note and discussed the case with the resident. I agree with the resident's findings and plan as documented with exceptions below. SUBJECTIVE: Patient seen and examined. Breathing improved, no palpitations. OBJECTIVE: Vital Signs Period Temp Pulse Resp BP Sys/Dorsey Pulse Ox Last 24 Hr 97.4 F-98.1 F 82-96 19-24 98-129/43-69 95-97 Intake & Output 11/21/18 11/22/18 11/23/18 11/24/18 23:59 23:59 23:59 23:59 Intake Total 700 400 250 50 Balance 700 400 250 50 Weight 157 lb 9 oz 154 lb 3.2 oz 155 lb 5 oz 153 lb 8.796 oz General: sitting in bed, no respiratory distress Neck: soft supple, no JVD noted Chest: few occasional basilar rales, improved exam Abdomen:soft, improved distension NT Extremities: trace pedal edema, Home Medications Medication Instructions Recorded RX: Butalb/Acetaminophen/Caffeine 40 mg PO PRN 05/05/11 [Fioricet 50-325-40 mg Tablet] RX: Pravastatin Sodium [Pravachol 20 mg PO DAILY 05/05/11 -] RX: Alprazolam [Xanax] 0.25 mg PO TID 11/17/18 RX: Omeprazole 20 mg PO DAILY 11/18/18 Furosemide [Lasix] 40 mg PO DAILY #30 tablet 11/24/18 RX: Apixaban [Eliquis -] 2.5 mg PO BID #60 tablet 11/24/18 RX: Levothyroxine [Synthroid -] 112 mcg PO DAILY@0700 #30 tablet 11/24/18 RX: Metoprolol Succinate [Toprol 50 mg PO BID #60 tab.sr.24h 11/24/18 XL -] Laboratory Results - last 24 hr 11/23/18 11/23/18 11/24/18 21:30 21:30 05:40 WBC 9.6 8.6 RBC 4.21 4.25 Hgb 13.1 13.5 Hct 39.1 39.6 MCV 92.8 93.2 MCH 31.0 31.8 MCHC 33.5 34.1 RDW 15.6 15.3 Plt Count 280 267 MPV 8.6 8.3 Absolute Neuts (auto) 5.2 Neutrophils % 60.7 Neutrophils % (Manual) 50.5 Band Neutrophils % 0.0 Lymphocytes % 24.4 Lymphocytes % (Manual) 23.3 Monocytes % 9.9 Monocytes % (Manual) 13 H D Eosinophils % 4.2 Eosinophils % (Manual) 7.1 H Basophils % 0.8 Basophils % (Manual) 0.0 Myelocytes % (Man) 1 Promyelocytes % (Man) 0 Blast Cells % (Manual) 0 Nucleated RBC % 0 Metamyelocytes 2 D Hypochromia 0 Platelet Estimate Normal Polychromasia 0 Poikilocytosis 0 Anisocytosis 0 Microcytosis 0 Macrocytosis 0 PTT (Actin FS) 33.2 Sodium Potassium Chloride Carbon Dioxide Anion Gap BUN Creatinine Est GFR (CKD-EPI)AfAm Est GFR (CKD-EPI)NonAf Random Glucose Calcium Phosphorus Magnesium Total Bilirubin AST ALT Alkaline Phosphatase Total Protein Albumin 11/24/18 05:40 WBC RBC Hgb Hct MCV MCH MCHC RDW Plt Count MPV Absolute Neuts (auto) Neutrophils % Neutrophils % (Manual) Band Neutrophils % Lymphocytes % Lymphocytes % (Manual) Monocytes % Monocytes % (Manual) Eosinophils % Eosinophils % (Manual) Basophils % Basophils % (Manual) Myelocytes % (Man) Promyelocytes % (Man) Blast Cells % (Manual) Nucleated RBC % Metamyelocytes Hypochromia Platelet Estimate Polychromasia Poikilocytosis Anisocytosis Microcytosis Macrocytosis PTT (Actin FS) Sodium 142 Potassium 3.8 Chloride 103 Carbon Dioxide 31 Anion Gap 8 BUN 42.6 H Creatinine 1.4 H Est GFR (CKD-EPI)AfAm 39.33 Est GFR (CKD-EPI)NonAf 33.94 Random Glucose 96 Calcium 9.4 Phosphorus 3.5 Magnesium 2.1 Total Bilirubin 0.3 AST 11 L ALT 20 Alkaline Phosphatase 47 Total Protein 6.9 Albumin 2.9 L ASSESSMENT AND PLAN: 88F HTN, HLD, Raynaud's disease, Anxiety, mild to moderate ascending aortic aneurysm (4.[address] 2014, stable), Hypothyroid, recent negative temporal artery bx on steroids, admitted with New onset CHF/tachycardia -Acute hypoxic respiratory failure -Acute systolic heart failure exacerbation, ?prednisone mediated -Atrial flutter/Fib with RVR -ELIEL , suspect cardiorenal -Elevated troponin, suspect demand type II NSTEMI from above rather than ACS. -Hypokalemia -HTN -HLD -Raynaud's disease -Anxiety -Mild to moderate Ascending aortic aneurysm (4.[address] in 2015) -Hypothyroidism -Recent negative temporal artery biopsy Plan: Improved, Oxygenating well, HR better. Toprol XL 50 mg BID (was on metoprolol 25 mg q6h) , lasix 40 mg daily. Cardizem d/amparo. Eliquis renal dosing, may be titrated up based on renal function outpatient. Low salt diet/fluid restriction/weight monitoring counseling. D/c home today. Discussed with patient, all questions answered.
== END 2018-11-24 11:20 | disposition home health service (06) | DRG 280 ==
LOC: JER 09:58 → JERBED 12:43 → JICU 11-18 06:15 → J2W 11-19 18:36
PROVIDERS: ADMIT Hospitalist; ATTEND Hospitalist
DX: I48.92 Unspecified atrial flutter (principal); J81.0 Acute pulmonary edema; I21.4 Non-ST elevation (NSTEMI) myocardial infarction; J96.01 Acute respiratory failure with hypoxia; I50.33 Acute on chronic diastolic (congestive) heart failure; N17.9 Acute kidney failure, unspecified; I13.0 Hypertensive heart and chronic kidney disease with heart failure and stage 1 through stage 4 chronic kidney disease, or unspecified chronic kidney disease; I48.91 Unspecified atrial fibrillation; I47.1 Supraventricular tachycardia; N18.9 Chronic kidney disease, unspecified; E03.9 Hypothyroidism, unspecified; F41.9 Anxiety disorder, unspecified; G56.00 Carpal tunnel syndrome, unspecified upper limb; M54.17 Radiculopathy, lumbosacral region; N32.81 Overactive bladder; K21.9 Gastro-esophageal reflux disease without esophagitis; I73.9 Peripheral vascular disease, unspecified; I65.8 Occlusion and stenosis of other precerebral arteries; E78.5 Hyperlipidemia, unspecified; I83.90 Asymptomatic varicose veins of unspecified lower extremity; I34.0 Nonrheumatic mitral (valve) insufficiency; I44.7 Left bundle-branch block, unspecified; R51 Headache; M54.5 Low back pain; M85.80 Other specified disorders of bone density and structure, unspecified site; I65.29 Occlusion and stenosis of unspecified carotid artery; I71.2 Thoracic aortic aneurysm, without rupture; M81.0 Age-related osteoporosis without current pathological fracture; Z89.022 Acquired absence of left finger(s)
CPT/HCPCS: 36415; 71045-TC-FY; 80048; 80053; 80061; 81003; 82550; 83721; 83735; 83880; 84100; 84439; 84443; 84480; 84484; 85025; 85027; 85379; 85610; 85730; 86850; 86900; 86901; 90670; 93005; 93010; 93306-TC; 94660; 94761; 97116-GP; 97161-GP; 99285-25; J1644

== ENCOUNTER 2021-08-30 11:46 | Observation (INO) | payer BC ==
[2021-08-30 13:13] LABS: BASO % 0.4 % (0-2.0); EOS % 0.4 % (0-4.5); HEMATOCRIT 37.3 % (32.4-45.2); HEMOGLOBIN 12.6 GM/dL (10.7-15.3); MCH 29.2 pg (25.7-33.7); MCHC 33.8 g/dl (32.0-36.0); MEAN CELL VOLUME 86.3 fl (80-96); MEAN PLT VOLUME 8.2 fl (7.5-11.1); MONO % 7.6 % (3.8-10.2); NEUT % 80.6 % (42.8-82.8); PLATELET COUNT 419 10^3/uL (134-434); RBC 4.32 M/mm3 (3.60-5.2); RDW 14.7 % (11.6-15.6); WHITE BLOOD COUNT 15.9 K/mm3 (4.0-10.0)
[2021-08-30 13:28] LABS: CALCIUM 9.4 mg/dL (8.5-10.1)
[2021-08-30 13:29] LABS: ALBUMIN 2.5 g/dl (3.4-5.0); BLOOD UREA NITROGEN 24.8 mg/dL (7-18)
[2021-08-30 13:34] LABS: BILIRUBIN,TOTAL 0.6 mg/dL (0.2-1); TOT PROT 7.5 g/dl (6.4-8.2)
[2021-08-30 16:38] LABS: EPI CELLS 3 /uL (0-25.1); HYALINE CASTS 2 /uL (0-3.1); PH,URINE 5.5 (5.0-8.0); URINE APPEARANCE CLEAR; URINE BACTERIA 6 /uL (0-1359); URINE BILIRUBIN NEGATIVE (NEGATIVE); URINE COLOR YELLOW; URINE GLUCOSE (UA) NEGATIVE (NEGATIVE); URINE KETONE 1+ (NEGATIVE); URINE LEUK ESTERASE NEGATIVE (NEGATIVE); URINE NITRITE NEGATIVE (NEGATIVE); URINE PROTEIN 2+ (NEGATIVE); URINE RBC 22 /uL (0-23.9); URINE WBC 3 /uL (0-25.8)
[2021-08-30] MEDS: SODIUM CHLORIDE 1,000 ML IV SCH (23:43)
[2021-08-31] MEDS: LEVOTHYROXINE NA 150 MCG TABLET PO SCH (06:15)
[2021-08-31 09:08] LABS: BASO % 0.4 % (0-2.0); EOS % 0.1 % (0-4.5); HEMATOCRIT 36.3 % (32.4-45.2); HEMOGLOBIN 12.2 GM/dL (10.7-15.3); INR 1.29 (0.83-1.09); LYMPH % 9.1 % (8-40); MCHC 33.5 g/dl (32.0-36.0); MEAN CELL VOLUME 86.3 fl (80-96); MEAN PLT VOLUME 8.3 fl (7.5-11.1); MONO % 5.6 % (3.8-10.2); NEUT % 84.8 % (42.8-82.8); PLATELET COUNT 412 10^3/uL (134-434); PROTHROMBIN TIME (PATIENT) 14.9 SEC (9.7-13.0); RBC 4.21 M/mm3 (3.60-5.2); RDW 14.5 % (11.6-15.6); WHITE BLOOD COUNT 15.7 K/mm3 (4.0-10.0)
[2021-08-31 09:28] LABS: ALBUMIN 2.4 g/dl (3.4-5.0); BLOOD UREA NITROGEN 21.8 mg/dL (7-18)
[2021-08-31 09:31] LABS: CREATININE 0.9 mg/dL (0.55-1.3); PHOSPHOROUS 3.3 mg/dL (2.5-4.9)
[2021-08-31 09:33] LABS: BILIRUBIN,TOTAL 0.4 mg/dL (0.2-1); TOT PROT 6.7 g/dl (6.4-8.2)
[2021-08-31] MEDS: CEFTRIAXONE 1 GM in DEXTROSE 5%-WATER - 50 ML IVPB SCH (13:50)
[2021-08-31] MEDS ORDERED: cefTRIAXone SODIUM 1 GM VIAL ONE (14:08)
[2021-08-31 14:09] LABS: SARS-CoV-2 NAA Not Detected (Not Detected)
[2021-08-31] MEDS ORDERED: DEXTROSE 5%-WATER - 50 ML IVPB ONE (14:09)
[2021-08-31] MEDS: AZITHROMYCIN IVPB 500 MG/250 ML BAG IVPB SCH (14:11)
[2021-08-31 16:37] VITALS: BMI 27.3
[2021-08-31] MEDS: RIVAROXABAN 15 MG TABLET PO SCH (18:00)
[2021-08-31] MEDS: ATORVASTATIN CA 10 MG TABLET (FP) PO SCH (21:01)
[2021-08-31] MEDS: ACETAMINOPHEN 325 MG TABLET (FP) PO PRN (21:01)
[2021-08-31] MEDS: SODIUM CHLORIDE 1,000 ML IV SCH (21:02)
[2021-09-01] MEDS: LEVOTHYROXINE NA 150 MCG TABLET PO SCH (06:01)
[2021-09-01] MEDS ORDERED: ALBUTEROL SO4 0.5 % INH SOLN 2.5 MG/0.5 ML VIAL.NEB. NEB PRN (07:34)
[2021-09-01] MEDS: ALBUTEROL SO4 2.5/IPRATROPIUM 0.5 INH SOL 3 ML VIAL.NEB. NEB SCH ×4 (07:54→20:40)
[2021-09-01 08:13] LABS: HEMATOCRIT 37.2 % (32.4-45.2); HEMOGLOBIN 12.2 GM/dL (10.7-15.3); MCH 28.7 pg (25.7-33.7); MCHC 32.8 g/dl (32.0-36.0); MEAN CELL VOLUME 87.2 fl (80-96); MEAN PLT VOLUME 8.3 fl (7.5-11.1); PLATELET COUNT 368 10^3/uL (134-434); RBC 4.27 M/mm3 (3.60-5.2); RDW 15.1 % (11.6-15.6)
[2021-09-01 08:23] LABS: CALCIUM 8.7 mg/dL (8.5-10.1)
[2021-09-01 08:24] LABS: ALBUMIN 1.9 g/dl (3.4-5.0); BLOOD UREA NITROGEN 20.2 mg/dL (7-18)
[2021-09-01 08:27] LABS: CREATININE 0.9 mg/dL (0.55-1.3)
[2021-09-01 08:29] LABS: BILIRUBIN,TOTAL 0.4 mg/dL (0.2-1)
[2021-09-01] MEDS ORDERED: DEXTROSE 5%-WATER - 50 ML IVPB ONE (09:06)
[2021-09-01] MEDS ORDERED: cefTRIAXone SODIUM 1 GM VIAL ONE (09:06)
[2021-09-01] MEDS: CEFTRIAXONE 1 GM in DEXTROSE 5%-WATER - 50 ML IVPB SCH (09:16)
[2021-09-01] MEDS: MULTIVITAMINS (DAILY MVI) TABLET (FP) PO SCH (09:23)
[2021-09-01] MEDS: AZITHROMYCIN IVPB 500 MG/250 ML BAG IVPB SCH (10:10)
[2021-09-01] MEDS: ACETAMINOPHEN 325 MG TABLET (FP) PO PRN ×2 (14:05→21:10)
[2021-09-01] MEDS: RIVAROXABAN 15 MG TABLET PO SCH (17:14)
[2021-09-01] MEDS: ATORVASTATIN CA 10 MG TABLET (FP) PO SCH (21:05)
[2021-09-02] MEDS: LEVOTHYROXINE NA 150 MCG TABLET PO SCH (06:30)
[2021-09-02] MEDS: ALBUTEROL SO4 2.5/IPRATROPIUM 0.5 INH SOL 3 ML VIAL.NEB. NEB SCH ×4 (07:15→20:00)
[2021-09-02 07:41] LABS: HEMATOCRIT 37.9 % (32.4-45.2); HEMOGLOBIN 12.5 GM/dL (10.7-15.3); MCH 28.7 pg (25.7-33.7); MEAN CELL VOLUME 86.7 fl (80-96); MEAN PLT VOLUME 8.2 fl (7.5-11.1); PLATELET COUNT 394 10^3/uL (134-434); RBC 4.37 M/mm3 (3.60-5.2); WHITE BLOOD COUNT 16.3 K/mm3 (4.0-10.0)
[2021-09-02 07:46] LABS: CALCIUM 8.8 mg/dL (8.5-10.1)
[2021-09-02] MEDS ORDERED: DEXTROSE 5%-WATER - 50 ML IVPB ONE (09:35)
[2021-09-02] MEDS ORDERED: cefTRIAXone SODIUM 1 GM VIAL ONE (09:35)
[2021-09-02] MEDS: CEFTRIAXONE 1 GM in DEXTROSE 5%-WATER - 50 ML IVPB SCH (09:42)
[2021-09-02] MEDS: MULTIVITAMINS (DAILY MVI) TABLET (FP) PO SCH (09:42)
[2021-09-02] MEDS: AZITHROMYCIN IVPB 500 MG/250 ML BAG IVPB SCH (09:42)
[2021-09-02 11:14] LABS: ANISOCYTOSIS 0; HELMET CELLS 0; HOWELL-JOLLY BODIES 0; MACROCYTOSIS 0; OVALOCYTE 0; ROULEAU 0; SICKELED CELLS 0; TARGET CELLS 0; TEAR DROP CELLS 0; TOXIC GRANULATION 0
[2021-09-02] MEDS: ACETAMINOPHEN 325 MG TABLET (FP) PO PRN ×2 (12:58→21:03)
[2021-09-02] MEDS: POLYETHYLENE GLYCOL (HEALTHYLAX) 3350 17 GM PACKET PO SCH (13:37)
[2021-09-02] MEDS: SENNOSIDES 8.6MG TABLET (FP) PO SCH ×2 (13:37→21:04)
[2021-09-02] MEDS: GLYCERIN 1 RECTAL SUPPOSITORY, ADULT PR SCH (13:38)
[2021-09-02] MEDS: RIVAROXABAN 15 MG TABLET PO SCH (17:42)
[2021-09-02] MEDS: ATORVASTATIN CA 10 MG TABLET (FP) PO SCH (21:04)
[2021-09-03] MEDS: LEVOTHYROXINE NA 150 MCG TABLET PO SCH (06:15)
[2021-09-03] MEDS: ALBUTEROL SO4 2.5/IPRATROPIUM 0.5 INH SOL 3 ML VIAL.NEB. NEB SCH ×4 (07:20→20:05)
[2021-09-03 07:56] LABS: HEMATOCRIT 38.3 % (32.4-45.2); HEMOGLOBIN 12.4 GM/dL (10.7-15.3); MCH 28.4 pg (25.7-33.7); MCHC 32.5 g/dl (32.0-36.0); MEAN CELL VOLUME 87.3 fl (80-96); MEAN PLT VOLUME 8.5 fl (7.5-11.1); PLATELET COUNT 431 10^3/uL (134-434); RBC 4.38 M/mm3 (3.60-5.2); RDW 15.3 % (11.6-15.6)
[2021-09-03 08:23] LABS: CALCIUM 8.9 mg/dL (8.5-10.1)
[2021-09-03 08:24] LABS: BLOOD UREA NITROGEN 24.3 mg/dL (7-18); MAGNESIUM 2.1 mg/dL (1.8-2.4)
[2021-09-03 08:27] LABS: PHOSPHOROUS 3.6 mg/dL (2.5-4.9)
[2021-09-03] MEDS ORDERED: DEXTROSE 5%-WATER - 50 ML IVPB ONE (08:30)
[2021-09-03] MEDS ORDERED: cefTRIAXone SODIUM 1 GM VIAL ONE (08:30)
[2021-09-03] MEDS: CEFTRIAXONE 1 GM in DEXTROSE 5%-WATER - 50 ML IVPB SCH (09:18)
[2021-09-03] MEDS: POLYETHYLENE GLYCOL (HEALTHYLAX) 3350 17 GM PACKET PO SCH (09:18)
[2021-09-03] MEDS: MULTIVITAMINS (DAILY MVI) TABLET (FP) PO SCH (09:18)
[2021-09-03] MEDS: GLYCERIN 1 RECTAL SUPPOSITORY, ADULT PR SCH (09:19)
[2021-09-03] MEDS: SENNOSIDES 8.6MG TABLET (FP) PO SCH ×2 (09:19→21:01)
[2021-09-03 10:06] LABS: ANISOCYTOSIS 0; MACROCYTOSIS 0
[2021-09-03] MEDS: AZITHROMYCIN IVPB 500 MG/250 ML BAG IVPB SCH (10:09)
[2021-09-03] MEDS ORDERED: BISACODYL 10 MG SUPP.RECT PR ONE ×2 (11:45→12:30)
[2021-09-03 17:10] LABS: SARS-CoV-2 NAA Not Detected (Not Detected)
[2021-09-03] MEDS: RIVAROXABAN 15 MG TABLET PO SCH (17:30)
[2021-09-03 19:26] LABS: EPI CELLS 5 /uL (0-25.1); HYALINE CASTS 3 /uL (0-3.1); PH,URINE 5.5 (5.0-8.0); URINE APPEARANCE CLEAR; URINE BACTERIA 2 /uL (0-1359); URINE BILIRUBIN NEGATIVE (NEGATIVE); URINE COLOR YELLOW; URINE GLUCOSE (UA) NEGATIVE (NEGATIVE); URINE KETONE NEGATIVE (NEGATIVE); URINE LEUK ESTERASE NEGATIVE (NEGATIVE); URINE NITRITE NEGATIVE (NEGATIVE); URINE PROTEIN 2+ (NEGATIVE); URINE RBC 8 /uL (0-23.9); URINE UROBILINOGEN 0.2 mg/dL (0.2-1.0); URINE WBC 4 /uL (0-25.8)
[2021-09-03] MEDS: ACETAMINOPHEN 325 MG TABLET (FP) PO PRN (21:00)
[2021-09-03] MEDS: ATORVASTATIN CA 10 MG TABLET (FP) PO SCH (21:01)
[2021-09-04] MEDS: LEVOTHYROXINE NA 150 MCG TABLET PO SCH (06:10)
[2021-09-04] MEDS: ALBUTEROL SO4 2.5/IPRATROPIUM 0.5 INH SOL 3 ML VIAL.NEB. NEB SCH ×4 (07:40→20:00)
[2021-09-04 08:15] LABS: BASO % 0.8 % (0-2.0); HEMATOCRIT 37.6 % (32.4-45.2); LYMPH % 18.2 % (8-40); MCH 28.2 pg (25.7-33.7); MEAN CELL VOLUME 88.1 fl (80-96); MEAN PLT VOLUME 8.6 fl (7.5-11.1); MONO % 8.4 % (3.8-10.2); NEUT % 68.6 % (42.8-82.8); PLATELET COUNT 406 10^3/uL (134-434); RBC 4.26 M/mm3 (3.60-5.2); RDW 15.2 % (11.6-15.6); WHITE BLOOD COUNT 12.3 K/mm3 (4.0-10.0)
[2021-09-04 08:31] LABS: CALCIUM 8.8 mg/dL (8.5-10.1)
[2021-09-04 08:32] LABS: BLOOD UREA NITROGEN 22.4 mg/dL (7-18); MAGNESIUM 2.1 mg/dL (1.8-2.4)
[2021-09-04 08:35] LABS: PHOSPHOROUS 3.9 mg/dL (2.5-4.9)
[2021-09-04 09:21] LABS: ANISOCYTOSIS 0; HELMET CELLS 0; HOWELL-JOLLY BODIES 0; MACROCYTOSIS 0; OVALOCYTE 0; ROULEAU 0; SICKELED CELLS 0; TARGET CELLS 0; TEAR DROP CELLS 0; TOXIC GRANULATION 0
[2021-09-04] MEDS ORDERED: DEXTROSE 5%-WATER - 50 ML IVPB ONE (09:32)
[2021-09-04] MEDS ORDERED: cefTRIAXone SODIUM 1 GM VIAL ONE (09:32)
[2021-09-04] MEDS: POLYETHYLENE GLYCOL (HEALTHYLAX) 3350 17 GM PACKET PO SCH ×2 (09:48→10:14)
[2021-09-04] MEDS: MULTIVITAMINS (DAILY MVI) TABLET (FP) PO SCH (09:51)
[2021-09-04] MEDS: SENNOSIDES 8.6MG TABLET (FP) PO SCH ×2 (09:51→21:46)
[2021-09-04] MEDS: CEFTRIAXONE 1 GM in DEXTROSE 5%-WATER - 50 ML IVPB SCH (09:51)
[2021-09-04] MEDS: AZITHROMYCIN IVPB 500 MG/250 ML BAG IVPB SCH (09:53)
[2021-09-04] MEDS: ACETAMINOPHEN 325 MG TABLET (FP) PO PRN (10:18)
[2021-09-04] MEDS: RIVAROXABAN 15 MG TABLET PO SCH (19:25)
[2021-09-04] MEDS: ATORVASTATIN CA 10 MG TABLET (FP) PO SCH (21:46)
[2021-09-05] MEDS: LEVOTHYROXINE NA 150 MCG TABLET PO SCH (06:13)
[2021-09-05] MEDS ORDERED: SODIUM CHLORIDE 500 ML IV STA (07:31)
[2021-09-05] MEDS: ALBUTEROL SO4 2.5/IPRATROPIUM 0.5 INH SOL 3 ML VIAL.NEB. NEB SCH ×4 (07:45→20:11)
[2021-09-05 08:08] LABS: HEMATOCRIT 36.1 % (32.4-45.2); HEMOGLOBIN 11.7 GM/dL (10.7-15.3); MCH 28.3 pg (25.7-33.7); MCHC 32.3 g/dl (32.0-36.0); MEAN CELL VOLUME 87.5 fl (80-96); MEAN PLT VOLUME 8.5 fl (7.5-11.1); PLATELET COUNT 413 10^3/uL (134-434); RBC 4.13 M/mm3 (3.60-5.2); RDW 14.7 % (11.6-15.6); WHITE BLOOD COUNT 12.7 K/mm3 (4.0-10.0)
[2021-09-05 08:30] LABS: CALCIUM 8.9 mg/dL (8.5-10.1)
[2021-09-05 08:31] LABS: BLOOD UREA NITROGEN 24.4 mg/dL (7-18); MAGNESIUM 2.2 mg/dL (1.8-2.4)
[2021-09-05 08:33] LABS: PHOSPHOROUS 3.6 mg/dL (2.5-4.9)
[2021-09-05 08:35] LABS: BILIRUBIN,TOTAL 0.2 mg/dL (0.2-1)
[2021-09-05] MEDS ORDERED: DEXTROSE 5%-WATER - 50 ML IVPB ONE (08:42)
[2021-09-05] MEDS ORDERED: cefTRIAXone SODIUM 1 GM VIAL ONE (08:42)
[2021-09-05] MEDS: POLYETHYLENE GLYCOL (HEALTHYLAX) 3350 17 GM PACKET PO SCH (10:25)
[2021-09-05] MEDS: MULTIVITAMINS (DAILY MVI) TABLET (FP) PO SCH (10:26)
[2021-09-05] MEDS: CEFTRIAXONE 1 GM in DEXTROSE 5%-WATER - 50 ML IVPB SCH (10:26)
[2021-09-05] MEDS: SENNOSIDES 8.6MG TABLET (FP) PO SCH ×2 (10:30→21:02)
[2021-09-05 12:06] LABS: ANISOCYTOSIS 0; MACROCYTOSIS 0; PLATELET ESTIMATE NORMAL
[2021-09-05] MEDS: AZITHROMYCIN IVPB 500 MG/250 ML BAG IVPB SCH (13:42)
[2021-09-05] MEDS: ACETAMINOPHEN 325 MG TABLET (FP) PO PRN (14:46)
[2021-09-05] MEDS: RIVAROXABAN 15 MG TABLET PO SCH (17:25)
[2021-09-05] MEDS: ATORVASTATIN CA 10 MG TABLET (FP) PO SCH (21:04)
[2021-09-06] MEDS: ACETAMINOPHEN 325 MG TABLET (FP) PO PRN (01:38)
[2021-09-06] MEDS: LEVOTHYROXINE NA 150 MCG TABLET PO SCH (06:32)
[2021-09-06] MEDS: ALBUTEROL SO4 2.5/IPRATROPIUM 0.5 INH SOL 3 ML VIAL.NEB. NEB SCH ×2 (07:25→11:14)
[2021-09-06] MEDS ORDERED: DEXTROSE 5%-WATER - 50 ML IVPB ONE (08:38)
[2021-09-06] MEDS ORDERED: cefTRIAXone SODIUM 1 GM VIAL ONE (08:38)
[2021-09-06] MEDS: CEFTRIAXONE 1 GM in DEXTROSE 5%-WATER - 50 ML IVPB SCH (09:06)
[2021-09-06] MEDS: POLYETHYLENE GLYCOL (HEALTHYLAX) 3350 17 GM PACKET PO SCH (09:06)
[2021-09-06] MEDS: MULTIVITAMINS (DAILY MVI) TABLET (FP) PO SCH (09:07)
[2021-09-06] MEDS: SENNOSIDES 8.6MG TABLET (FP) PO SCH (09:07)
[2021-09-06] MEDS: AZITHROMYCIN IVPB 500 MG/250 ML BAG IVPB SCH (09:08)
[2021-09-06 09:31] LABS: BASO % 0.6 % (0-2.0); EOS % 2.4 % (0-4.5); HEMOGLOBIN 11.8 GM/dL (10.7-15.3); LYMPH % 17.8 % (8-40); MCH 28.1 pg (25.7-33.7); MEAN PLT VOLUME 8.4 fl (7.5-11.1); MONO % 6.2 % (3.8-10.2); PLATELET COUNT 445 10^3/uL (134-434)
[2021-09-06 09:55] LABS: MAGNESIUM 2.1 mg/dL (1.8-2.4)
[2021-09-06 09:58] LABS: PHOSPHOROUS 3.2 mg/dL (2.5-4.9)
[2021-09-06 10:35] LABS: ANISOCYTOSIS 0; HELMET CELLS 0; HOWELL-JOLLY BODIES 0; MACROCYTOSIS 0; OVALOCYTE 0; ROULEAU 0; SICKELED CELLS 0; TARGET CELLS 0; TEAR DROP CELLS 0; TOXIC GRANULATION 0
[2021-09-06 11:07] VITALS: BP 154/66; PULSE 81; TEMP 97.9
== END 2021-09-06 13:14 | disposition home health service (06) ==
LOC: JER 11:46 → INTOOBSV 19:44 → JERBED 19:44 → J4S 08-31 00:58
PROVIDERS: ADMIT Hospitalist; ATTEND Internal Medicine
PROC: 3E0F7GC Introduction of Other Therapeutic Substance into Respiratory Tract, Via Natural or Artificial Opening (ICD-10-PCS; principal; 2021-08-30)
PROC: 3E03329 Introduction of Other Anti-infective into Peripheral Vein, Percutaneous Approach (ICD-10-PCS; 2021-08-30)
PROC: 3E0337Z Introduction of Electrolytic and Water Balance Substance into Peripheral Vein, Percutaneous Approach (ICD-10-PCS; 2021-08-30)
DX: S09.90XA Unspecified injury of head, initial encounter (principal); R51.9 Headache, unspecified; J84.9 Interstitial pulmonary disease, unspecified; I50.42 Chronic combined systolic (congestive) and diastolic (congestive) heart failure; I11.0 Hypertensive heart disease with heart failure; I48.0 Paroxysmal atrial fibrillation; I73.9 Peripheral vascular disease, unspecified; I73.00 Raynaud's syndrome without gangrene; R05.9 Cough, unspecified; G89.29 Other chronic pain; M54.50 Low back pain, unspecified; E07.9 Disorder of thyroid, unspecified; M85.80 Other specified disorders of bone density and structure, unspecified site; F41.9 Anxiety disorder, unspecified; R50.9 Fever, unspecified; I47.1 Supraventricular tachycardia; F79 Unspecified intellectual disabilities; N28.9 Disorder of kidney and ureter, unspecified; I71.4 Abdominal aortic aneurysm, without rupture; K74.60 Unspecified cirrhosis of liver; E78.5 Hyperlipidemia, unspecified; D72.829 Elevated white blood cell count, unspecified; Z29.8 Encounter for other specified prophylactic measures; Z79.01 Long term (current) use of anticoagulants; W18.39XA Other fall on same level, initial encounter; Y93.89 Activity, other specified; Y92.091 Bathroom in other non-institutional residence as the place of occurrence of the external cause
CPT/HCPCS: 36415; 70450-TC; 71045-TC-FY; 72125-TC; 72128-TC; 72131-TC; 72170-TC-FY; 80048; 80053; 80061; 81003; 82550; 82553; 83036; 83735; 84100; 84443; 84484; 85025; 85027; 85610; 86140; 87040; 87086; 87804; 93005; 93010; 93306-TC; 93880-TC; 94640; 94761; 96361; 96365; 96375; 97116-GP; 97161-GP; 99285-25; C9803-CS; G0378; U0003; U0005

== ENCOUNTER 2022-09-28 10:52 | Inpatient (IN) | payer BC, OTHER ==
[2022-09-28] MEDS ORDERED: DIPHTH,PERTUSS(ACELL),TET 0.5 ML DISP.SYRIN IM ONE ×2 (11:18→11:32)
[2022-09-28] MEDS ORDERED: ACETAMINOPHEN 1000 MG/100 ML BAG IVPB ONE (11:18)
[2022-09-28] MEDS ORDERED: ACETAMINOPHEN INJECTION 100 ML IVPB ONE (11:32)
[2022-09-28 11:50] LABS: BASO % 0.6 % (0-2.0); EOS % 0.5 % (0-4.5); HEMATOCRIT 42.9 % (32.4-45.2); HEMOGLOBIN 14.5 GM/dL (10.7-15.3); LYMPH % 13.1 % (8-40); MCH 28.9 pg (25.7-33.7); MCHC 33.8 g/dl (32.0-36.0); MEAN CELL VOLUME 85.4 fl (80-96); MONO % 8.3 % (3.8-10.2); NEUT % 77.5 % (42.8-82.8); PLATELET COUNT 294 10^3/uL (134-434); RBC 5.02 M/mm3 (3.60-5.2); RDW 15.1 % (11.6-15.6); WHITE BLOOD COUNT 11.9 K/mm3 (4.0-10.0)
[2022-09-28 11:58] LABS: INR 1.44 (0.83-1.09); PROTHROMBIN TIME (PATIENT) 16.7 SEC (9.7-13.0)
[2022-09-28 12:16] LABS: POTASSIUM 5.3 mmol/L (3.5-5.1)
[2022-09-28 12:17] LABS: CALCIUM 9.9 mg/dL (8.5-10.1)
[2022-09-28 12:18] LABS: ALBUMIN 3.3 g/dl (3.4-5.0); BLOOD UREA NITROGEN 19.5 mg/dL (7-18)
[2022-09-28 12:21] LABS: CREATININE 0.9 mg/dL (0.55-1.3)
[2022-09-28 12:23] LABS: BILIRUBIN,TOTAL 0.7 mg/dL (0.2-1); TOT PROT 7.9 g/dl (6.4-8.2)
[2022-09-28] MEDS ORDERED: SODIUM CHLORIDE 0.9% 500 ML INFUS.BAG IV ONE (12:47)
[2022-09-28 14:55] LABS: EPI CELLS 3 /uL (0-25.1); HYALINE CASTS 0 /uL (0-3.1); URINE APPEARANCE CLEAR; URINE BACTERIA 1 /uL (0-1359); URINE BILIRUBIN NEGATIVE (NEGATIVE); URINE COLOR YELLOW; URINE GLUCOSE (UA) NEGATIVE (NEGATIVE); URINE KETONE NEGATIVE (NEGATIVE); URINE LEUK ESTERASE NEGATIVE (NEGATIVE); URINE NITRITE NEGATIVE (NEGATIVE); URINE PROTEIN 2+ (NEGATIVE); URINE RBC 11 /uL (0-23.9); URINE UROBILINOGEN 0.2 mg/dL (0.2-1.0); URINE WBC 1 /uL (0-25.8)
[2022-09-28] MEDS ORDERED: RIVAROXABAN 15 MG TABLET PO SCH (17:00)
[2022-09-28] MEDS ORDERED: DEXTROSE 50%-WATER - 25 GM/50 ML VIAL IVPUSH ONE (18:35)
[2022-09-28] MEDS ORDERED: DEXTROSE 50%-WATER 25 GM/50 ML DISP.SYRIN ONE (18:37)
[2022-09-28] MEDS: ATORVASTATIN CA 10 MG TABLET (FP) PO SCH (18:50)
[2022-09-28] MEDS ORDERED: ATORVASTATIN CA 10 MG TABLET (FP) ONE (18:50)
[2022-09-28 21:31] VITALS: BMI 25.7
[2022-09-28] MEDS: metoPROLOL SUCCINATE 25 MG TAB.SR.24H (FP) PO SCH ×2 (22:17→22:18)
[2022-09-29] MEDS: LIOTHYRONINE SODIUM 5 MCG TABLET PO SCH (06:04)
[2022-09-29 08:28] LABS: BASO % 0.6 % (0-2.0); EOS % 1.4 % (0-4.5); HEMATOCRIT 36.2 % (32.4-45.2); HEMOGLOBIN 12.5 GM/dL (10.7-15.3); LYMPH % 22.7 % (8-40); MCH 29.2 pg (25.7-33.7); MCHC 34.5 g/dl (32.0-36.0); MEAN CELL VOLUME 84.5 fl (80-96); MEAN PLT VOLUME 8.8 fl (7.5-11.1); NEUT % 66.3 % (42.8-82.8); PLATELET COUNT 317 10^3/uL (134-434); RBC 4.28 M/mm3 (3.60-5.2); RDW 15.2 % (11.6-15.6); WHITE BLOOD COUNT 9.3 K/mm3 (4.0-10.0)
[2022-09-29 08:49] LABS: POTASSIUM 4.1 mmol/L (3.5-5.1)
[2022-09-29 08:52] LABS: CALCIUM 9.2 mg/dL (8.5-10.1)
[2022-09-29 08:53] LABS: BLOOD UREA NITROGEN 20.7 mg/dL (7-18)
[2022-09-29] MEDS: ATORVASTATIN CA 10 MG TABLET (FP) PO SCH (09:33)
[2022-09-29] MEDS: OXYBUTYNIN CHLORIDE 5 MG TABLET PO SCH (09:33)
[2022-09-29] MEDS: metoPROLOL SUCCINATE 25 MG TAB.SR.24H (FP) PO SCH ×2 (09:33→21:59)
[2022-09-29] MEDS: amLODIPine BESYLATE 5 MG TABLET (FP) PO SCH (15:41)
[2022-09-29] MEDS: LEVOTHYROXINE NA 150 MCG TABLET PO SCH (17:42)
[2022-09-30] MEDS: traMADol HCL 50 MG TABLET PO PRN ×2 (04:59→21:51)
[2022-09-30] MEDS: LIOTHYRONINE SODIUM 5 MCG TABLET PO SCH (06:16)
[2022-09-30] MEDS: LEVOTHYROXINE NA 150 MCG TABLET PO SCH (06:16)
[2022-09-30 07:35] LABS: BASO % 1.1 % (0-2.0); EOS % 2.3 % (0-4.5); HEMATOCRIT 37.7 % (32.4-45.2); HEMOGLOBIN 12.9 GM/dL (10.7-15.3); LYMPH % 25.4 % (8-40); MCH 29.2 pg (25.7-33.7); MCHC 34.2 g/dl (32.0-36.0); MEAN CELL VOLUME 85.2 fl (80-96); MEAN PLT VOLUME 9.4 fl (7.5-11.1); MONO % 9.3 % (3.8-10.2); NEUT % 61.9 % (42.8-82.8); PLATELET COUNT 299 10^3/uL (134-434); RBC 4.43 M/mm3 (3.60-5.2); RDW 15.3 % (11.6-15.6); WHITE BLOOD COUNT 9.6 K/mm3 (4.0-10.0)
[2022-09-30 07:51] LABS: POTASSIUM 4.6 mmol/L (3.5-5.1)
[2022-09-30 07:55] LABS: CALCIUM 9.5 mg/dL (8.5-10.1)
[2022-09-30 07:56] LABS: BLOOD UREA NITROGEN 24.1 mg/dL (7-18)
[2022-09-30] MEDS: OXYBUTYNIN CHLORIDE 5 MG TABLET PO SCH (09:32)
[2022-09-30] MEDS: amLODIPine BESYLATE 5 MG TABLET (FP) PO SCH (09:32)
[2022-09-30] MEDS: metoPROLOL SUCCINATE 25 MG TAB.SR.24H (FP) PO SCH ×2 (09:32→21:51)
[2022-09-30] MEDS: ATORVASTATIN CA 10 MG TABLET (FP) PO SCH (09:32)
[2022-10-01] MEDS: LIOTHYRONINE SODIUM 5 MCG TABLET PO SCH (06:12)
[2022-10-01] MEDS: LEVOTHYROXINE NA 150 MCG TABLET PO SCH (06:13)
[2022-10-01 07:28] LABS: HEMATOCRIT 37.6 % (32.4-45.2); HEMOGLOBIN 12.9 GM/dL (10.7-15.3); MCH 29.1 pg (25.7-33.7); MCHC 34.2 g/dl (32.0-36.0); MEAN CELL VOLUME 84.9 fl (80-96); MEAN PLT VOLUME 9.3 fl (7.5-11.1); PLATELET COUNT 297 10^3/uL (134-434); RBC 4.43 M/mm3 (3.60-5.2); RDW 15.5 % (11.6-15.6); WHITE BLOOD COUNT 9.7 K/mm3 (4.0-10.0)
[2022-10-01 07:34] LABS: POTASSIUM 4.5 mmol/L (3.5-5.1)
[2022-10-01 07:40] LABS: CALCIUM 9.1 mg/dL (8.5-10.1)
[2022-10-01 07:41] LABS: BLOOD UREA NITROGEN 28.7 mg/dL (7-18); MAGNESIUM 1.9 mg/dL (1.8-2.4)
[2022-10-01 07:44] LABS: CREATININE 1.2 mg/dL (0.55-1.3); PHOSPHOROUS 3.9 mg/dL (2.5-4.9)
[2022-10-01] MEDS ORDERED: traMADol HCL 50 MG TABLET PO PRN (08:28)
[2022-10-01] MEDS: metoPROLOL SUCCINATE 25 MG TAB.SR.24H (FP) PO SCH ×2 (10:38→22:12)
[2022-10-01] MEDS: ATORVASTATIN CA 10 MG TABLET (FP) PO SCH (10:39)
[2022-10-01] MEDS: amLODIPine BESYLATE 5 MG TABLET (FP) PO SCH (10:39)
[2022-10-02] MEDS: LIOTHYRONINE SODIUM 5 MCG TABLET PO SCH ×2 (06:21→12:51)
[2022-10-02] MEDS: LEVOTHYROXINE NA 150 MCG TABLET PO SCH ×2 (06:21→12:53)
[2022-10-02] MEDS: metoPROLOL SUCCINATE 25 MG TAB.SR.24H (FP) PO SCH ×2 (10:27→21:50)
[2022-10-02] MEDS: amLODIPine BESYLATE 5 MG TABLET (FP) PO SCH (10:28)
[2022-10-02] MEDS: ATORVASTATIN CA 10 MG TABLET (FP) PO SCH (10:28)
[2022-10-02] MEDS: RIVAROXABAN 15 MG TABLET PO SCH (17:39)
[2022-10-02] MEDS ORDERED: QUEtiapine FUMARATE 25 MG TABLET PO ONE (21:27)
[2022-10-03] MEDS: LEVOTHYROXINE NA 150 MCG TABLET PO SCH ×2 (06:11→13:28)
[2022-10-03] MEDS: amLODIPine BESYLATE 5 MG TABLET (FP) PO SCH (09:56)
[2022-10-03] MEDS: ATORVASTATIN CA 10 MG TABLET (FP) PO SCH (09:57)
[2022-10-03] MEDS: metoPROLOL SUCCINATE 25 MG TAB.SR.24H (FP) PO SCH ×2 (09:57→21:50)
[2022-10-03] MEDS ORDERED: DOCUSATE SODIUM 100 MG CAPSULE (FP) PO ONE (12:00)
[2022-10-03] MEDS ORDERED: POLYETHYLENE GLYCOL (HEALTHYLAX) 3350 17 GM PACKET PO ONE (12:00)
[2022-10-03] MEDS: RIVAROXABAN 15 MG TABLET PO SCH (18:09)
[2022-10-04] MEDS: LEVOTHYROXINE NA 150 MCG TABLET PO SCH (06:02)
[2022-10-04] MEDS: amLODIPine BESYLATE 5 MG TABLET (FP) PO SCH (09:25)
[2022-10-04] MEDS: metoPROLOL SUCCINATE 25 MG TAB.SR.24H (FP) PO SCH (09:25)
[2022-10-04] MEDS: ATORVASTATIN CA 10 MG TABLET (FP) PO SCH (09:26)
[2022-10-04 11:17] VITALS: RESP 20
[2022-10-04 16:04] VITALS: PULSE 78
[2022-10-04] MEDS: RIVAROXABAN 15 MG TABLET PO SCH (17:42)
[2022-10-04 18:38] VITALS: BP 134/66; TEMP 98.4
== END 2022-10-04 18:32 | DRG 312 ==
LOC: JER 10:52 → JERBED 11:01 → J4W 21:09 → OBSVTOIN 10-01 09:15 → J4W 10-03 11:56
PROVIDERS: ADMIT Internal Medicine; ATTEND Internal Medicine
DX: R55 Syncope and collapse (principal); I50.42 Chronic combined systolic (congestive) and diastolic (congestive) heart failure; I13.0 Hypertensive heart and chronic kidney disease with heart failure and stage 1 through stage 4 chronic kidney disease, or unspecified chronic kidney disease; J84.9 Interstitial pulmonary disease, unspecified; I31.39 Other pericardial effusion (noninflammatory); I47.1 Supraventricular tachycardia; S00.83XA Contusion of other part of head, initial encounter; R42 Dizziness and giddiness; E78.5 Hyperlipidemia, unspecified; E03.9 Hypothyroidism, unspecified; I48.91 Unspecified atrial fibrillation; I34.0 Nonrheumatic mitral (valve) insufficiency; M54.50 Low back pain, unspecified; I73.00 Raynaud's syndrome without gangrene; M85.88 Other specified disorders of bone density and structure, other site; G56.00 Carpal tunnel syndrome, unspecified upper limb; M54.17 Radiculopathy, lumbosacral region; M81.0 Age-related osteoporosis without current pathological fracture; I73.9 Peripheral vascular disease, unspecified; N18.9 Chronic kidney disease, unspecified; I71.20 Thoracic aortic aneurysm, without rupture, unspecified; K14.3 Hypertrophy of tongue papillae; R68.2 Dry mouth, unspecified; W18.30XA Fall on same level, unspecified, initial encounter; Y92.098 Other place in other non-institutional residence as the place of occurrence of the external cause
CPT/HCPCS: 0241U-QW; 36415; 70450-TC; 71045-TC-FY; 72125-TC; 80048; 80053; 81003; 82550; 82553; 82962; 83735; 84100; 84439; 84443; 84484; 85025; 85027; 85610; 85730; 86850; 86900; 86901; 87086; 90715; 93005; 93010; 93306-TC; 97116-GP; 97161-GP; 99285-25; G0378